=== PATIENT | female | born 1985 | race Caucasian/White ===

== ENCOUNTER 2016-03-25 12:37 | Outpatient (CLI) | payer MEDICAID ==
--- NOTE | 2016-03-25 14:00 | L&D Flow Sheet ---
LD Flowsheet Datetime Report Generated by CPN: 03/25/2016 14:00 Datetime: 03/25/2016 13:50 Uterine Activity Monitor Mode: External; Palpation (Chely Carmen RN) Frequency (min): none (Chely Carmen RN) Resting Tone (Palpate): Relaxed (Chely Carmen RN) Contraction Comments: patient denies feeling contractions. no contractions noted on monitor (Chely Carmen RN) Assessment A Monitor Mode: External US (Chely [place], RN) FHR Baseline Rate : 150 (Chely [place], RN) FHR Baseline Changes: No Baseline Change (Chely [place], RN) Variability: Moderate 6-25 bpm (Chely [place], RN) Accelerations: 15X15 (Chely Kermit, RN) Decelerations: None (Chely [place], RN) Comments: reports positive movement; audible movement noted (Chely [place], RN) Datetime: 03/25/2016 13:49 Vital Signs Stage of : Labor (Chely Kermit, RN) Datetime: 03/25/2016 13:46 Medications Medication Comments: Patient self administered Humalog 5 units sub Q per provider order (Chely Carmen, RN) Datetime: 03/25/2016 13:42 Provider Notified (Name): Jane Horne CNM stated, Hgb A1C is not needed at this time (Chely Luzard, RN) Datetime: 03/25/2016 13:40 Vital Signs Stage of : Labor (Chely Carmen RN) NBP Sys/Maylin/Mean (mmHg): 119 (QS system process) : 74 (QS system process) : 91 (QS system process) Pulse: 79 (QS system process) Respirations: 14 (Chely Carmen RN) Temperature (F): 98.5 (Chely Carmen RN) Temperature (C): 36.9 (QS system process) Temperature Route: Oral (Chely Carmen RN) Pain Pain Scale: 0 (Chely Carmen RN) Pain Presence: None/Denies (Chely Carmen RN) Pain Type: N/A (Chely Carmen RN) Pain Goal: 1 (Chely Carmen RN) Pain Relief Measures: Comfort Measures (Chely Carmen RN) LaborFlag: Labor (QS system process) Datetime: 03/25/2016 13:36 Communication Communication: Call/Page Placed to Provider (Chely Carmen RN) Provider Notified (Name): Dr. Bacon (Chely Carmen RN) Communication Comments: Notified of patient OB history and history of poorly controlled Type 2 DM. Notified of insulin dose history, BS 306 at 1130 in provider's office and repeat BS 191 in L_D. Orders received to have patioent take Humalog 5 units subq (patient may take home medication) and call MFM if blood sugar remains > or equal to 200. Patient verbalized understanding and all questions answered. Agrees to plan of care. Patient has been previously scheduled for induction on Mar 29. Orders to discharge patient home following recative NST. (Chely Carmen RN) Datetime: 03/25/2016 13:29 Bedside Blood Glucose: 191 H (Annotations: MD Notified) (QS system process) Bedside Blood Glucose: 191 (Annotations: Dr. Bacon notified) (Chely Luzard, RN) LaborFlag: Labor (QS system process) Datetime: 03/25/2016 13:20 Monitor Interventions for FHR: Ultrasound Adjusted (Chely [place], RN) Patient Care Provider Reviewed Strip: Yes (Chely [place], RN) Communication Communication: RN at Bedside; RN Reviewed Strip; Provider at Bedside (Chely Carmen, RN) Provider Notified (Name): Jane Horne CNBen at bedside discussing plan of care (Chely Luzard, RN) Datetime: 03/25/2016 13:10 NBP Sys/Maylin/Mean (mmHg): 118 (QS system process) : 60 (QS system process) : 80 (QS system process) Pulse: 81 (QS system process) LaborFlag: Labor (QS system process) Datetime: 03/25/2016 13:08 Vital Signs Stage of : Labor (Chely [place], RN) Datetime: 03/25/2016 12:58 Vital Signs Stage of : Labor (Chely [place], RN)
--- NOTE | 2016-03-25 14:01 | Non Stress Test Report ---
Non Stress Test Datetime Report Generated by CPN: 03/25/2016 14:01 DEMOGRAPHIC EGA NST: 38.0 INDICATION Indication for Study: Diabetes Mellitus MONITORING Monitor Explained: Monitor Explained; Test Explained; Patient Verbalized Understanding Time on Monitor: 03/25/2016 13:08 Time off Monitor: 03/25/2016 13:50 NST Duration: 42 NST INTERVENTIONS NST Interventions: PO Hydration Physician Notified NST: Jane Horne CNM/Dr. Bacon BABY A: [id number] BABY A Movement : Present Contraction Frequency : none FHR Baseline : 150 Accelerations : 15X15 Decelerations : None Variability : Moderate 6-25bpm NST Review: Meets Criteria for Reactive NST NST Review and Verified By : Angely Carmen RN NST REPORT Report Trigger: Send Report
== END 2016-03-25 13:57 | disposition home or self-care (01) ==
LOC: LC 12:37
PROVIDERS: ATTEND Obstetrics & Gynecology
PROC: 4A1HXCZ Monitoring of Products of Conception, Cardiac Rate, External Approach (ICD-10-PCS; principal; 2016-03-25)
DX: O24.913 Unspecified diabetes mellitus in pregnancy, third trimester (principal); Z3A.38 38 weeks gestation of pregnancy; Z79.4 Long term (current) use of insulin
CPT/HCPCS: 59025; 82962

== ENCOUNTER 2016-03-29 05:58 | Inpatient (IN) | payer MEDICAID ==
[2016-03-29] MEDS ORDERED: PENICILLIN G POTASSIUM 5,000,000 UNIT in DEXTROSE 5%-WATER 100 ML IV ONE (06:22)
[2016-03-29] MEDS ORDERED: OXYTOCIN/NORMAL SALINE 20 UNIT/1,000 ML RTUINJ IV PRN ×2 (06:22→19:42)
[2016-03-29] MEDS ORDERED: RINGERS SOLUTION,LACTATED 300 ML IV ONE (06:22)
[2016-03-29] MEDS ORDERED: RINGERS SOLUTION,LACTATED 1,000 ML IV PRN (06:22)
[2016-03-29 07:04] LABS: ABSOLUTE BASOPHILS # (AUTO) 0.1 10^3/uL (0.0-0.2); ABSOLUTE EOSINOPHILS # (AUTO) 0.1 10^3/uL (0.0-0.6); ABSOLUTE LYMPHOCYTES (AUTO) 3.2 10^3/uL (0.5-4.7); ABSOLUTE NEUT (AUTO) 12.6 10^3/uL (1.7-8.2); BASOPHILS % (AUTO) 0.5 % (0-2); EOSINOPHILS % (AUTO) 0.8 % (0-6); HEMATOCRIT 39.6 % (36.0-47.0); HEMOGLOBIN 13.2 g/dL (12.0-15.5); LYMPHOCYTES % (AUTO) 18.9 % (13-45); MEAN CORPUSCULAR HGB CONC 33.4 g/dL (32.0-36.0); MEAN CORPUSCULAR VOLUME 93 fl (80-97); MONOCYTES % (AUTO) 5.8 % (3-13); RED BLOOD COUNT 4.27 10^6/uL (3.72-5.28); RED CELL DISTRIBUTION WIDTH 13.2 % (11.5-14.0)
[2016-03-29] MEDS ORDERED: OXYTOCIN/NORMAL SALINE 20 UNIT/1,000 ML RTUINJ ONE (07:23)
[2016-03-29] MEDS ORDERED: PENICILLIN G-K 5 MILLION UNIT VIAL ONE ×4 (07:23→19:34)
[2016-03-29 07:51] LABS: APPEARANCE,URINE CLOUDY; BILIRUBIN,URINE NEGATIVE (NEGATIVE); GLUCOSE, URINE NEGATIVE (NEGATIVE); KETONES,URINE 20 mg/dL (NEGATIVE); LEUKOCYTE ESTERASE,URINE LARGE (NEGATIVE); NITRITE,URINE NEGATIVE (NEGATIVE); PROTEIN,URINE NEGATIVE (NEGATIVE); URINE SPECIFIC GRAVITY 1.025; UROBILINOGEN,URINE NEGATIVE mg/dL (<2.0)
--- NOTE | 2016-03-29 08:00 | L&D Flow Sheet ---
LD Flowsheet Datetime Report Generated by CPN: 03/29/2016 08:00 Datetime: 03/29/2016 07:45 Antibiotics: Penicillin IV (Units) @ 5 million units (Hansa Halsmer, RN) Datetime: 03/29/2016 07:44 NBP Sys/Maylin/Mean (mmHg): 121 (QS system process) : 68 (QS system process) : 88 (QS system process) Pulse: 68 (QS system process) LaborFlag: Labor (QS system process) Datetime: 03/29/2016 07:13 NBP Sys/Maylin/Mean (mmHg): 130 (QS system process) : 73 (QS system process) : 95 (QS system process) Pulse: 100 (QS system process) LaborFlag: Labor (QS system process) Datetime: 03/29/2016 07:10 Additional Nursing Comments: report to rn halsmer. care relinquished. (Valencia Navikim, RN) Datetime: 03/29/2016 07:01 Monitor Mode: External; Palpation (Valencia Kossmann, RN) Frequency (min): none (Valencia Guthrie, RN) Resting Tone (Palpate): Relaxed (Valencia Guthrie RN) Monitor Mode: External US (Valencia Guthrie RN) FHR Baseline Rate : 155 (Valencia Guthrie RN) Variability: Minimal - Undetectable to <=5 bpm (Valencia Guthrie RN) Decelerations: None (Valencia Guthrie RN) Datetime: 03/29/2016 06:40 NBP Sys/Maylin/Mean (mmHg): 134 (QS system process) : 82 (QS system process) : 100 (QS system process) Pulse: 94 (QS system process) LaborFlag: Labor (QS system process) Datetime: 03/29/2016 06:38 Level of Consciousness: Fully Conscious (Valencia Guthrie RN) DTR's/Clonus: DTRs 2+; No Clonus (Valencia Guthrie RN) Headache: Denies (Valencia Guthrie RN) Breath Sounds, Left: Clear and Equal (Valencia Guthrie RN) Breath Sounds, Right: Clear and Equal (Valencia Guthrie RN) Nausea/Vomiting: Denies (Valencia Guthrie RN) RUQ Epigastric Pain: Denies (Valencia Guthrie RN) Datetime: 03/29/2016 06:24 Communication Comments: Consents signed (Radha Gordillo RN)
[2016-03-29 08:15] LABS: URINE BARBITURATES SCREEN NEGATIVE; URINE METHADONE SCREEN NEGATIVE; URINE OPIATES LOW NEGATIVE; URINE PHENCYCLIDINE SCREEN NEGATIVE
--- NOTE | 2016-03-29 10:01 | L&D Flow Sheet ---
LD Flowsheet Datetime Report Generated by CPN: 03/29/2016 10:00 Datetime: 03/29/2016 09:36 Bedside Blood Glucose: 135 H (Annotations: MD Notified) (QS system process) LaborFlag: Labor (QS system process) Datetime: 03/29/2016 09:14 NBP Sys/Maylin/Mean (mmHg): 120 (QS system process) : 68 (QS system process) : 84 (QS system process) Pulse: 75 (QS system process) LaborFlag: Labor (QS system process) Datetime: 03/29/2016 08:47 Actions for Decelerations: Provider Reviewed Strip (Hansa Hou RN) Communication: Provider at Bedside (Hansa Hou RN) Datetime: 03/29/2016 08:45 Monitor Mode: External (Hansa Hou RN) Frequency (min): none per toco (Hansa Hou RN) Quality: Mild (Hansa Hou RN) Resting Tone (Palpate): Relaxed (Hansa Hou RN) Contraction Comments: pt states feeling cramping. toco adjusted. (Hansa Hou RN) Monitor Mode: External US (Hansa Hou RN) FHR Baseline Rate : 160 (Hansa Hou RN) Variability: Moderate 6-25 bpm (Hansa Hou RN) Decelerations: None (Hansa Hou RN) Pitocin (milliunit): Pitocin Increased to (milliunits) @ (Annotations: 6) (Hansa Hou RN) Datetime: 03/29/2016 08:43 NBP Sys/Maylin/Mean (mmHg): 115 (QS system process) : 63 (QS system process) : 82 (QS system process) Pulse: 67 (QS system process) Respirations: 16 (Hansa Halsmer, RN) LaborFlag: Labor (QS system process) Datetime: 03/29/2016 08:40 Monitor Interventions for UA: [place] Adjusted (Hansa Halsmer, RN) Datetime: 03/29/2016 08:30 Monitor Mode: External (Hansa Halsmer, RN) Frequency (min): none per toco (Hansa Halsmer, RN) Resting Tone (Palpate): Relaxed (Hansa Halsmer, RN) Monitor Mode: External US (Hansa Halsmer, RN) FHR Baseline Rate : 150 (Hansa Halsmer, RN) Variability: Moderate 6-25 bpm (Hansa Halsmer, RN) Accelerations: 15X15 (Hansa Halsmer, RN) Decelerations: None (Hansa Halsmer, RN) Pitocin (milliunit): Pitocin Increased to (milliunits) @ (Annotations: 4) (Hansa Halsmer, RN) Datetime: 03/29/2016 08:15 Monitor Mode: External (Hansa Halsmer, RN) Frequency (min): none per toco (Hansa Halsmer, RN) Resting Tone (Palpate): Relaxed (Hansa Halsmer, RN) Monitor Mode: External US (Hansa Halsmer, RN) FHR Baseline Rate : 155 (Hansa Halsmer, RN) Variability: Minimal - Undetectable to <=5 bpm (Hansa Halsmer, RN) Decelerations: None (Hansa Halsmer, RN) Pitocin (milliunit): Pitocin Remains (milliunits) @ (Annotations: 2) (Hansa Halsmer, RN) Datetime: 03/29/2016 08:13 NBP Sys/Maylin/Mean (mmHg): 118 (QS system process) : 59 (QS system process) : 82 (QS system process) Pulse: 72 (QS system process) Temperature (F): 98.2 (Hansa Hou RN) Temperature (C): 36.8 (QS system process) Temperature Route: Oral (Hansa Hou RN) Pain Scale: 0 (Hansa Hou RN) Pain Presence: None/Denies (Hansa Hou RN) Pain Type: N/A (Hansa Hou RN) LaborFlag: Labor (QS system process) Datetime: 03/29/2016 08:08 I/O Interventions: Up to BR (Hansa Fairbankser, RN) Datetime: 03/29/2016 08:00 Monitor Mode: External (Hansa Hou RN) Frequency (min): none per toco (Hansa Hou RN) Resting Tone (Palpate): Relaxed (Hansa Hou RN) Monitor Mode: External US (Hansa Hou RN) FHR Baseline Rate : 150 (Hansa Hou RN) FHR Baseline Changes: No Baseline Change (Hansa Hou RN) Variability: Moderate 6-25 bpm (Hansa Hou RN) Decelerations: None (Hansa Hou RN) Pitocin (milliunit): Pitocin Started (milliunits) @ 2; Pitocin 20 Units in 1000ml NS (Hansa Hou RN)
[2016-03-29] MEDS ORDERED: PENICILLIN G POTASSIUM 2,500,000 UNIT in DEXTROSE 5%-WATER 50 ML IV SCH (10:23)
[2016-03-29] MEDS ORDERED: EPHEDRINE SULFATE INJ 50 MG/1 ML AMPULE ONE (11:32)
[2016-03-29] MEDS ORDERED: BUPIVACAINE HCL 0.25 % INJ/PF (2.5 MG/1 ML) 30 ML VIAL ONE (11:33)
[2016-03-29] MEDS ORDERED: FENTANYL/BUPIVACAINE/NS/PF 200 MCG/100 ML RTUINJ EPI ONE ×2 (11:33→20:29)
--- NOTE | 2016-03-29 11:37 | L&D Progress Notes ---
PROGRESS NOTES Datetime Report Generated by CPN: 03/29/2016 11:37 PROGRESS NOTE Impression: Normal Progression of Labor Procedures: Artificial ROM Plan: Induction Informed Consent Obtained: Vaginal Delivery Vital Signs : Reviewed; Within Normal Limits Comment: at 38+4ega presented for IOL due to very poorly controlled Accuchecks with Type II DM on insulin. Cvx 2cm on admission. Cat II FHR tracing with difficult to trace baby due to habitus. May need FSE/IUPC. will continue to monitor. AROM with clear fluid noted. Pitocin IOL to continue as per protocol. Anticpate . Cvx now 4/50/-2. COntinue with IOL. VAGINAL EXAM Dilatation: 4 Effacement: 50 Station: -2 Contractions: irregular MEMBRANES Pooling: Positive Membranes: Ruptured Amniotic Fluid Color: Clear FETUS A FHR - Baseline: 150 Monitoring: External US Variability: Moderate 6-25bpm Accelerations: 10X10 Decelerations: None SIGNATURE SIGNATURE: [id number] SIGNATURE: [id number] SIGNATURE: [id number] Signature: with User ID: [email or web address]
--- NOTE | 2016-03-29 12:00 | L&D Flow Sheet ---
LD Flowsheet Datetime Report Generated by CPN: 03/29/2016 12:00 Datetime: 03/29/2016 11:49 IV/Blood Work: IV Bolus Started (Hansa Halsmer, RN) Datetime: 03/29/2016 11:46 Pain Presence: Intermittent (Hansa Fairbankser, RN) Pain Type: Contraction (Hansa Fairbankser, RN) Pain Location: Back (Hansa Fairbankser, RN) Pain Relief Measures: Comfort Measures (Hansa Fairbankser, RN) Pain Coping: Requesting Pain Medication or Epidural (Hansa Hou, RN) Comfort Measures: Breathing/Relaxation; Coaching; Family Support (Hansa Hou, RN) LaborFlag: Labor (QS system process) Datetime: 03/29/2016 11:45 Pitocin (milliunit): Pitocin Remains (milliunits) @ (Annotations: 16) (Hansa Fairbankser, RN) Datetime: 03/29/2016 11:44 Antibiotics: Penicillin IV (Units) @ 2.5 million units (Hansa Fairbankser, RN) Datetime: 03/29/2016 11:30 Pitocin (milliunit): Pitocin Remains (milliunits) @ (Annotations: 16) (Hansa Hou RN) Datetime: 03/29/2016 11:28 Patient Position/Activity: Right Lateral; Semi-Fowlers (Hansa Hou RN) Datetime: 03/29/2016 11:24 Dilatation (cm): 4.0 (Hansa Hou RN) Effacement (%): 50 (Hansa Hou RN) Station: -3 (Hansa Hou RN) Exam by: DR FRANK (Hansa Hou RN) Membrane Status: Ruptured (Hansa Hou RN) Membranes Rupture Method: Artificial (Hansa Hou RN) Amniotic Fluid Color: Clear (Hansa Huo RN) Amniotic Fluid Amount: Moderate (Hansa Hou RN) Datetime: 03/29/2016 11:20 I/O Interventions: Up to BR (Hansa Hou, RN) Datetime: 03/29/2016 11:15 Pitocin (milliunit): Pitocin Remains (milliunits) @ (Annotations: 16) (Hansa Hou, RN) Datetime: 03/29/2016 11:14 NBP Sys/Maylin/Mean (mmHg): 125 (QS system process) : 80 (QS system process) : 97 (QS system process) Pulse: 85 (QS system process) Temperature (F): 97.9 (Hansa Halsmer, RN) Temperature (C): 36.6 (QS system process) Temperature Route: Oral (Hansa Hou, RN) LaborFlag: Labor (QS system process) Datetime: 03/29/2016 11:00 Pitocin (milliunit): Pitocin Increased to (milliunits) @ (Annotations: 16) (Hansa Hou, RN) Datetime: 03/29/2016 10:45 Pitocin (milliunit): Pitocin Remains (milliunits) @ (Annotations: 14) (Hansa Hou, RN) Datetime: 03/29/2016 10:30 Monitor Mode: External; Palpation (Hansa Halsmer, RN) Frequency (min): 2-3 (Hansa Halsmer, RN) Quality: Mild (Hansa Halsmer, RN) Duration (sec): 50-70 (Hansa Halsmer, RN) Resting Tone (Palpate): Relaxed (Hansa Halsmer, RN) Monitor Mode: External US (Hansa Halsmer, RN) FHR Baseline Rate : 155 (Hansa Halsmer, RN) FHR Baseline Changes: No Baseline Change (Hansa Halsmer, RN) Variability: Moderate 6-25 bpm (Hansa Halsmer, RN) Accelerations: 15X15 (Hansa Halsmer, RN) Decelerations: None (Hansa Halsmer, RN) Pitocin (milliunit): Pitocin Increased to (milliunits) @ (Annotations: 14) (Hansa Halsmer, RN) Datetime: 03/29/2016 10:16 Patient Position/Activity: Tailors (Hansa Halsmer, RN) Datetime: 03/29/2016 10:15 Monitor Mode: External; Palpation (Hansa Halsmer, RN) Frequency (min): OOC (Hansa Halsmer, RN) Quality: Mild (Hansa Halsmer, RN) Resting Tone (Palpate): Relaxed (Hansa Halsmer, RN) Monitor Mode: External US (Hansa Halsmer, RN) FHR Baseline Rate : 155 (Hansa Halsmer, RN) FHR Baseline Changes: No Baseline Change (Hansa Halsmer, RN) Variability: Minimal - Undetectable to <=5 bpm (Hansa Halsmer, RN) Decelerations: None (Hansa Halsmer, RN) Pitocin (milliunit): Pitocin Remains (milliunits) @ (Annotations: 12) (Hansa Halsmer, RN) Datetime: 03/29/2016 10:13 I/O Interventions: Up to BR (Hansa Halsmer, RN) Datetime: 03/29/2016 10:11 Monitor Mode: External; Palpation (Hansa Hou RN) Monitor Interventions for UA: [place] Adjusted (Hansa Haldinoraher, RN) Datetime: 03/29/2016 10:08 Monitor Interventions for UA: [place] Adjusted (Hansa Fairbankser, RN) Datetime: 03/29/2016 10:00 Monitor Mode: External (Hansa Hou RN) Frequency (min): NONE PER TOCO (Hansa Hou RN) Quality: Mild (Hansa Hou RN) Resting Tone (Palpate): Relaxed (Hansa Hou RN) Contraction Comments: RN AT BEDSIDE ADJUSTING TOCO (Hansa Hou RN) Monitor Mode: External US (Hansa Hou RN) FHR Baseline Rate : 160 (Hansa Hou RN) Variability: Moderate 6-25 bpm (Hansa Hou RN) Pitocin (milliunit): Pitocin Increased to (milliunits) @ (Annotations: 12) (Hansa Hou RN)
--- NOTE | 2016-03-29 14:00 | L&D Flow Sheet ---
LD Flowsheet Datetime Report Generated by CPN: 03/29/2016 14:00 Datetime: 03/29/2016 13:54 NBP Sys/Maylin/Mean (mmHg): 126 (QS system process) : 66 (QS system process) : 86 (QS system process) Pulse: 74 (QS system process) LaborFlag: Labor (QS system process) Datetime: 03/29/2016 13:51 NBP Sys/Maylin/Mean (mmHg): 122 (QS system process) : 58 (QS system process) : 82 (QS system process) Pulse: 67 (QS system process) LaborFlag: Labor (QS system process) Datetime: 03/29/2016 13:49 NBP Sys/Maylin/Mean (mmHg): 117 (QS system process) : 58 (QS system process) : 81 (QS system process) Pulse: 78 (QS system process) Anesthesia Interventions Other: Ephedrine (Hansa Neri RN) Anesthesia Comments: 10MG IV PUSH (Hansa Neri RN) LaborFlag: Labor (QS system process) Datetime: 03/29/2016 13:47 IV/Blood Work: New IV Bag Hung (Hansa Neri, GRISEL) Datetime: 03/29/2016 13:46 NBP Sys/Maylin/Mean (mmHg): 115 (QS system process) : 60 (QS system process) : 80 (QS system process) Pulse: 72 (QS system process) Oxygen Method: Non-Rebreather (Hansa Neri, RN) LaborFlag: Labor (QS system process) Datetime: 03/29/2016 13:45 Pitocin (milliunit): Pitocin Remains (milliunits) @ (Annotations: 16) (Hansa Neri, RN) Datetime: 03/29/2016 13:44 NBP Sys/Maylin/Mean (mmHg): 103 (QS system process) : 55 (QS system process) : 74 (QS system process) Pulse: 75 (QS system process) LaborFlag: Labor (QS system process) Datetime: 03/29/2016 13:40 NBP Sys/Maylin/Mean (mmHg): 109 (QS system process) : 57 (QS system process) : 76 (QS system process) Pulse: 72 (QS system process) LaborFlag: Labor (QS system process) Datetime: 03/29/2016 13:39 NBP Sys/Maylin/Mean (mmHg): 97 (QS system process) : 56 (QS system process) : 72 (QS system process) Pulse: 69 (QS system process) Anesthesia Interventions Other: Ephedrine (Hansa Neri RN) Anesthesia Comments: 10 MG IV PUSH (Hansa Neri RN) LaborFlag: Labor (QS system process) Datetime: 03/29/2016 13:33 NBP Sys/Maylin/Mean (mmHg): 93 (QS system process) : 51 (QS system process) : 65 (QS system process) Pulse: 76 (QS system process) LaborFlag: Labor (QS system process) Datetime: 03/29/2016 13:30 NBP Sys/Maylin/Mean (mmHg): 104 (QS system process) : 59 (QS system process) : 76 (QS system process) Pulse: 72 (QS system process) Pitocin (milliunit): Pitocin Remains (milliunits) @ (Annotations: 16) (Hansa Neri RN) LaborFlag: Labor (QS system process) Datetime: 03/29/2016 13:29 Monitor Interventions for UA: IUPC Inserted (Swati Bellavance, RNC) Datetime: 03/29/2016 13:28 Monitor Interventions for FHR: FSE Applied (Swati Bellavance, RNC) Dilatation (cm): 5.0 (Swati Bellavance, RNC) Effacement (%): 60 (Swati Bellavance, RNC) Station: -3 (Swati Bellavance, RNC) Exam by: Yeni Rasheed CNM (Swtai Bellavance, RNC) Vaginal Bleeding: None (Swati Bellavance, RNC) Datetime: 03/29/2016 13:27 Oxygen Method: Face Mask (Swati Bellavance, RNC) Communication: Provider at Bedside (Hansa Neri, GRISEL) Communication Comments: Pedro RASHEED CNM (Hansa [facility], ) Datetime: 03/29/2016 13:22 IV/Blood Work: IV Bolus Started (Hansa Neri, RN) Datetime: 03/29/2016 13:21 Monitor Interventions for FHR: Ultrasound Adjusted (Hansa Neri, RN) Datetime: 03/29/2016 13:15 NBP Sys/Maylin/Mean (mmHg): 112 (QS system process) : 68 (QS system process) : 85 (QS system process) Pulse: 73 (QS system process) Pitocin (milliunit): Pitocin Remains (milliunits) @ (Annotations: 16) (Hansa Neri, GRISEL) LaborFlag: Labor (QS system process) Datetime: 03/29/2016 13:14 NBP Sys/Maylin/Mean (mmHg): 118 (QS system process) : 71 (QS system process) : 88 (QS system process) Pulse: 81 (QS system process) LaborFlag: Labor (QS system process) Datetime: 03/29/2016 13:11 NBP Sys/Maylin/Mean (mmHg): 116 (QS system process) : 70 (QS system process) : 88 (QS system process) Pulse: 74 (QS system process) LaborFlag: Labor (QS system process) Datetime: 03/29/2016 13:10 NBP Sys/Maylin/Mean (mmHg): 117 (QS system process) : 63 (QS system process) : 79 (QS system process) Pulse: 83 (QS system process) LaborFlag: Labor (QS system process) Datetime: 03/29/2016 13:09 Anesthesia Interventions Other: Ephedrine (Hansa Halsmer, RN) Anesthesia Comments: 5 mg iv push (Hansa Halsmer, RN) Datetime: 03/29/2016 13:08 NBP Sys/Maylin/Mean (mmHg): 112 (QS system process) : 65 (QS system process) : 83 (QS system process) Pulse: 74 (QS system process) LaborFlag: Labor (QS system process) Datetime: 03/29/2016 13:07 NBP Sys/Maylin/Mean (mmHg): 120 (QS system process) : 67 (QS system process) : 87 (QS system process) Pulse: 83 (QS system process) LaborFlag: Labor (QS system process) Datetime: 03/29/2016 13:03 NBP Sys/Maylin/Mean (mmHg): 115 (QS system process) : 64 (QS system process) : 82 (QS system process) Pulse: 75 (QS system process) LaborFlag: Labor (QS system process) Datetime: 03/29/2016 13:02 Dilatation (cm): 5.0 (Hansa Neri RN) Effacement (%): 90 (Hansa Neri RN) Station: -1 (Hansa Neri RN) Exam by: Adelaida NERI RN (Hansa Neri RN) Datetime: 03/29/2016 13:00 Pitocin (milliunit): Pitocin Remains (milliunits) @ (Annotations: 16) (Hansa Chaneysmer, RN) I/O Interventions: George Cath Inserted (Hansa Halsmer, RN) Datetime: 03/29/2016 12:57 NBP Sys/Maylin/Mean (mmHg): 119 (QS system process) : 69 (QS system process) : 88 (QS system process) Pulse: 82 (QS system process) LaborFlag: Labor (QS system process) Datetime: 03/29/2016 12:56 NBP Sys/Maylin/Mean (mmHg): 123 (QS system process) : 68 (QS system process) : 89 (QS system process) Pulse: 77 (QS system process) LaborFlag: Labor (QS system process) Datetime: 03/29/2016 12:55 NBP Sys/Maylin/Mean (mmHg): 120 (QS system process) : 71 (QS system process) : 90 (QS system process) Pulse: 77 (QS system process) Epidural Procedure Other: Pump Started (Maryuri Joyec RN) LaborFlag: Labor (QS system process) Datetime: 03/29/2016 12:54 NBP Sys/Maylin/Mean (mmHg): 127 (QS system process) : 71 (QS system process) : 93 (QS system process) Pulse: 80 (QS system process) Patient Position/Activity: Right Tilt (Maryuri Joyce RN) LaborFlag: Labor (QS system process) Datetime: 03/29/2016 12:53 NBP Sys/Maylin/Mean (mmHg): 133 (QS system process) : 89 (QS system process) : 106 (QS system process) Pulse: 80 (QS system process) LaborFlag: Labor (QS system process) Datetime: 03/29/2016 12:52 NBP Sys/Maylin/Mean (mmHg): 129 (QS system process) : 78 (QS system process) : 98 (QS system process) Pulse: 71 (QS system process) LaborFlag: Labor (QS system process) Datetime: 03/29/2016 12:51 NBP Sys/Maylin/Mean (mmHg): 132 (QS system process) : 86 (QS system process) : 105 (QS system process) Pulse: 77 (QS system process) LaborFlag: Labor (QS system process) Datetime: 03/29/2016 12:50 NBP Sys/Maylin/Mean (mmHg): 127 (QS system process) : 79 (QS system process) : 99 (QS system process) Pulse: 69 (QS system process) LaborFlag: Labor (QS system process) Datetime: 03/29/2016 12:49 NBP Sys/Maylin/Mean (mmHg): 142 (QS system process) : 89 (QS system process) : 109 (QS system process) Pulse: 76 (QS system process) Epidural Procedure: Cath Placed (Maryuri Joyce RN) LaborFlag: Labor (QS system process) Datetime: 03/29/2016 12:48 Pulse: 71 (QS system process) SpO2 (%): 100 (QS system process) Epidural Procedure: Test Dose (Maryuri Joyce RN) LaborFlag: Labor (QS system process) Datetime: 03/29/2016 12:45 Pitocin (milliunit): Pitocin Remains (milliunits) @ (Annotations: 16) (Hansa [facility], RN) Datetime: 03/29/2016 12:44 NBP Sys/Maylin/Mean (mmHg): 140 (QS system process) : 87 (QS system process) : 107 (QS system process) Pulse: 76 (QS system process) IV/Blood Work: New IV Bag Hung (Maryuri Joyce RN) LaborFlag: Labor (QS system process) Datetime: 03/29/2016 12:43 Pulse: 79 (QS system process) SpO2 (%): 100 (QS system process) LaborFlag: Labor (QS system process) Datetime: 03/29/2016 12:40 Procedure Verify: Correct Patient Identity; Correct Side and Site are Marked; Accurate Procedure Consent Form; Agreement on Procedure to be Done; Correct Patient Position (Maryuri Joyce RN) Anesthesia Plans: Epidural (Maryuri Joyce RN) Epidural Positioning: Sitting (Maryuri Joyce RN) Datetime: 03/29/2016 12:38 Pulse: 80 (QS system process) SpO2 (%): 100 (QS system process) Procedure Verify: Correct Patient Identity; Correct Side and Site are Marked; Accurate Procedure Consent Form; Agreement on Procedure to be Done; Correct Patient Position (Maryuri Joyce RN) Epidural Positioning: Sitting (Maryuri Joyce RN) Anesthesia Comments: Dr. Seaman at bedside (Maryuri Joyce RN) LaborFlag: Labor (QS system process) Datetime: 03/29/2016 12:30 Pitocin (milliunit): Pitocin Remains (milliunits) @ (Annotations: 16) (Hansa Fairbankser, RN) Datetime: 03/29/2016 12:15 Pitocin (milliunit): Pitocin Remains (milliunits) @ (Annotations: 16) (Hansa Fairbankser, RN) Datetime: 03/29/2016 12:09 Patient Position/Activity: Tailors (Hansa Neri, RN) Datetime: 03/29/2016 12:00 Pitocin (milliunit): Pitocin Remains (milliunits) @ (Annotations: 16) (Hansa Neri RN) I/O Interventions: Up to BR (Hansa Neri RN) Patient Care Comments: pt having bm (Hansa Neri RN)
--- NOTE | 2016-03-29 16:00 | L&D Flow Sheet ---
LD Flowsheet Datetime Report Generated by CPN: 03/29/2016 16:00 Datetime: 03/29/2016 15:46 NBP Sys/Maylin/Mean (mmHg): 117 (QS system process) : 72 (QS system process) : 88 (QS system process) Pulse: 86 (QS system process) LaborFlag: Labor (QS system process) Datetime: 03/29/2016 15:30 NBP Sys/Maylin/Mean (mmHg): 103 (QS system process) : 66 (QS system process) : 79 (QS system process) Pulse: 107 (QS system process) Monitor Mode: Internal (Hansa Halsmer, RN) Frequency (min): 4-5 (Hansa Halsmer, RN) Quality: Moderate (Hansa Halsmer, RN) Duration (sec): 50-70 (Hansa Halsmer, RN) Duration Criteria: Less than Two 120 Second Contractions (Hansa Halsmer, RN) Resting Tone (Palpate): Relaxed (Hansa Halsmer, RN) Monitor Mode: Internal Scalp Electrode (Hansa Halsmer, RN) FHR Baseline Rate : 165 (Hansa Halsmer, RN) FHR Baseline Changes: No Baseline Change (Hansa Halsmer, RN) Variability: Moderate 6-25 bpm (Hansa Halsmer, RN) Decelerations: None (Hansa Halsmer, RN) LaborFlag: Labor (QS system process) Datetime: 03/29/2016 15:15 NBP Sys/Maylin/Mean (mmHg): 125 (QS system process) : 78 (QS system process) : 93 (QS system process) Pulse: 94 (QS system process) Respirations: 16 (Hansa Halsmer, RN) Monitor Mode: Internal (Hansa Halsmer, RN) Frequency (min): 4-5 (Hansa Halsmer, RN) Quality: Moderate (Hansa Halsmer, RN) Duration (sec): 50-70 (Hansa Halsmer, RN) Duration Criteria: Less than Two 120 Second Contractions (Hansa Halsmer, RN) Resting Tone (Palpate): Relaxed (Hansa Halsmer, RN) Monitor Mode: Internal Scalp Electrode (Hnasa Halsmer, RN) FHR Baseline Rate : 160 (Hansa Halsmer, RN) FHR Baseline Changes: No Baseline Change (Hansa Halsmer, RN) Variability: Moderate 6-25 bpm (Hansa Halsmer, RN) Decelerations: None (Hansa Halsmer, RN) LaborFlag: Labor (QS system process) Datetime: 03/29/2016 15:12 Resting Tone IUP (mmHg): 15 (Hansa Halsmer, RN) Contraction Comments: TOTAL MVU'S 160 (Hansa Halsmer, RN) Datetime: 03/29/2016 15:04 Patient Position/Activity: Tailors (Hansa Halsmer, RN) Hygiene: Underpad Changed (Hansa Halsmer, RN) Datetime: 03/29/2016 15:00 NBP Sys/Maylin/Mean (mmHg): 114 (QS system process) : 63 (QS system process) : 81 (QS system process) Pulse: 90 (QS system process) Respirations: 16 (Hansa Halsmer, RN) Monitor Mode: Internal Scalp Electrode (Hansa Halsmer, RN) FHR Baseline Rate : 160 (Hansa Halsmer, RN) FHR Baseline Changes: No Baseline Change (Hansa Halsmer, RN) Variability: Moderate 6-25 bpm (Hansa Halsmer, RN) Accelerations: 15X15 (Hansa Halsmer, RN) Decelerations: None (Hansa Halsmer, RN) LaborFlag: Labor (QS system process) Datetime: 03/29/2016 14:46 NBP Sys/Maylin/Mean (mmHg): 122 (QS system process) : 65 (QS system process) : 85 (QS system process) Pulse: 81 (QS system process) Respirations: 16 (Hansa Halsmer, RN) LaborFlag: Labor (QS system process) Datetime: 03/29/2016 14:45 Monitor Mode: Internal (Hansa Halsmer, RN) Frequency (min): 3-4 (Hansa Halsmer, RN) Quality: Moderate (Hansa Halsmer, RN) Duration (sec): 50-80 (Hansa Halsmer, RN) Resting Tone (Palpate): Relaxed (Hansa Halsmer, RN) Monitor Mode: Internal Scalp Electrode (Hansa Halsmer, RN) FHR Baseline Rate : 160 (Hansa Halsmer, RN) Variability: Moderate 6-25 bpm (Hansa Halsmer, RN) Decelerations: None (Hansa Halsmer, RN) Datetime: 03/29/2016 14:30 NBP Sys/Maylin/Mean (mmHg): 117 (QS system process) : 66 (QS system process) : 83 (QS system process) Pulse: 69 (QS system process) Respirations: 16 (Hansa Halsmer, RN) Monitor Mode: Internal (Hansa Halsmer, RN) Frequency (min): 2-3 (Hansa Halsmer, RN) Quality: Moderate (Hansa Halsmer, RN) Duration (sec): 40-60 (Hansa Halsmer, RN) Resting Tone (Palpate): Relaxed (Hansa Halsmer, RN) Monitor Mode: Internal Scalp Electrode (Hansa Halsmer, RN) FHR Baseline Rate : 150 (Hansa Halsmer, RN) FHR Baseline Changes: No Baseline Change (Hansa Halsmer, RN) Variability: Moderate 6-25 bpm (Hansa Halsmer, RN) Decelerations: Late; Variable (Hansa Halsmer, RN) LaborFlag: Labor (QS system process) Datetime: 03/29/2016 14:27 Patient Position/Activity: Hands-Knees (Hansa Halsmer, RN) Datetime: 03/29/2016 14:25 Pitocin (milliunit): Pitocin Discontinued (Hansa Halsmer, RN) Datetime: 03/29/2016 14:23 Bedside Blood Glucose: 94 (Annotations: MD Notified) (QS system process) LaborFlag: Labor (QS system process) Datetime: 03/29/2016 14:20 Pitocin (milliunit): Pitocin Decreased to (milliunits) @ 8 (Hansa Halsmer, RN) Datetime: 03/29/2016 14:19 Patient Position/Activity: Right Extreme (Hansa Halsmer, RN) Datetime: 03/29/2016 14:16 NBP Sys/Maylin/Mean (mmHg): 123 (QS system process) : 72 (QS system process) : 91 (QS system process) Pulse: 92 (QS system process) Respirations: 16 (Hansa Halsmer, RN) LaborFlag: Labor (QS system process) Datetime: 03/29/2016 14:15 Monitor Mode: Internal (Hansa Halsmer, RN) Frequency (min): 2-3 (Hansa Halsmer, RN) Quality: Moderate (Hansa Halsmer, RN) Duration (sec): 50-80 (Hansa Halsmer, RN) Duration Criteria: Less than Two 120 Second Contractions (Hansa Halsmer, RN) Resting Tone (Palpate): Relaxed (Hansa Halsmer, RN) Monitor Mode: Internal Scalp Electrode (Hansa Halsmer, RN) FHR Baseline Rate : 150 (Hansa Halsmer, RN) FHR Baseline Changes: No Baseline Change (Hansa Halsmer, RN) Variability: Moderate 6-25 bpm (Hansa Halsmer, RN) Accelerations: 15X15 (Hansa Halsmer, RN) Decelerations: Late (Hnasa Halsmer, RN) Datetime: 03/29/2016 14:01 NBP Sys/Maylin/Mean (mmHg): 133 (QS system process) : 65 (QS system process) : 92 (QS system process) Pulse: 98 (QS system process) Respirations: 16 (Hansa Hou RN) LaborFlag: Labor (QS system process) Datetime: 03/29/2016 14:00 Monitor Mode: Internal (Hansa Hou RN) Frequency (min): 2-4 (Hansa Hou RN) Quality: Moderate (Hansa Hou RN) Duration (sec): 50-70 (Hansa Hou RN) Duration Criteria: Less than Two 120 Second Contractions (Hansa Hou RN) Resting Tone (Palpate): Relaxed (Hansa Hou RN) Monitor Mode: Internal Scalp Electrode (Hansa Hou RN) FHR Baseline Rate : 155 (Hansa Hou RN) Variability: Minimal - Undetectable to <=5 bpm (Hansa Hou RN) Decelerations: Early; Late (Hansa Hou RN) Pitocin (milliunit): Pitocin Remains (milliunits) @ (Annotations: 16) (Hansa Hou RN)
--- NOTE | 2016-03-29 17:58 | L&D Progress Notes ---
PROGRESS NOTES Datetime Report Generated by CPN: 03/29/2016 17:58 PROGRESS NOTE Impression: Normal Progression of Labor; Reassuring Heart Rate Procedures: Sterile Vag Exam Plan: Continue Present Management; Induction Informed Consent Obtained: Vaginal Delivery; Induction of Labor; Risks, Benefits and Alternatives Discussed Vital Signs : Reviewed; Within Normal Limits Comment: 38+4ega with poor Type II FM control here for IOL. cvx 5-6/80/-2. Cervical change noted. EFW 7.5# However now pt is having late decels again and intrauterine resuscitation and position change to occur to improve FHR tracing. Will continue with IOL. C/S for maternal/ indication. VAGINAL EXAM Dilatation: 5 Effacement: 80 Station: -2 Contractions: q 2-3 MEMBRANES Membranes: Ruptured Amniotic Fluid Color: Clear FETUS A FHR - Baseline: 150 Monitoring: Internal Scalp Electrode Variability: Moderate 6-25bpm Accelerations: 10X10 Decelerations: Early; Late; Variable FHR Category: Category II FETUS C SIGNATURE: [id number] Signature: with User ID: [email or web address]
--- NOTE | 2016-03-29 18:01 | L&D Flow Sheet ---
LD Flowsheet Datetime Report Generated by CPN: 03/29/2016 18:00 Datetime: 03/29/2016 17:57 Patient Position/Activity: Left Extreme (Hansa Halsmer, RN) Datetime: 03/29/2016 17:46 NBP Sys/Maylin/Mean (mmHg): 115 (QS system process) : 71 (QS system process) : 89 (QS system process) Pulse: 89 (QS system process) LaborFlag: Labor (QS system process) Datetime: 03/29/2016 17:45 Pitocin (milliunit): Pitocin Remains (milliunits) @ (Annotations: 8) (Hansa Halsmer, RN) Patient Position/Activity: Tailors (Hansa Halsmer, RN) Datetime: 03/29/2016 17:42 Dilatation (cm): 5.0 (Hansa Halsmer, RN) Effacement (%): 80 (Hansa Halsmer, RN) Station: -2 (Hansa Halsmer, RN) Exam by: DR FRANK (Hansa Halsmer, RN) Datetime: 03/29/2016 17:32 NBP Sys/Maylin/Mean (mmHg): 108 (QS system process) : 58 (QS system process) : 79 (QS system process) Pulse: 86 (QS system process) LaborFlag: Labor (QS system process) Datetime: 03/29/2016 17:30 Pitocin (milliunit): Pitocin Increased to (milliunits) @ (Annotations: 8) (Hansa Halsmer, RN) Datetime: 03/29/2016 17:17 Resting Tone IUP (mmHg): 25 (Hansa Halsmer, RN) Contraction Comments: TOTAL MVU'S 135 (Hansa Halsmer, RN) Datetime: 03/29/2016 17:16 NBP Sys/Maylin/Mean (mmHg): 104 (QS system process) : 61 (QS system process) : 75 (QS system process) Pulse: 89 (QS system process) LaborFlag: Labor (QS system process) Datetime: 03/29/2016 17:15 Pitocin (milliunit): Pitocin Remains (milliunits) @ (Annotations: 6) (Hansa Halsmer, RN) Datetime: 03/29/2016 17:12 I/O Interventions: Ice Chips Given (Hansa Halsmer, RN) Datetime: 03/29/2016 17:04 Patient Position/Activity: Right Extreme (Hansa Hou, RN) Datetime: 03/29/2016 17:00 NBP Sys/Maylin/Mean (mmHg): 114 (QS system process) : 68 (QS system process) : 86 (QS system process) Pulse: 81 (QS system process) Pitocin (milliunit): Pitocin Increased to (milliunits) @ (Annotations: 6) (Hansa Hou, RN) LaborFlag: Labor (QS system process) Datetime: 03/29/2016 16:45 NBP Sys/Maylin/Mean (mmHg): 112 (QS system process) : 69 (QS system process) : 86 (QS system process) Pulse: 80 (QS system process) Pitocin (milliunit): Pitocin Remains (milliunits) @ (Annotations: 4) (Hansa Hou RN) LaborFlag: Labor (QS system process) Datetime: 03/29/2016 16:42 Resting Tone IUP (mmHg): 25 (Hansa Hou RN) Contraction Comments: TOTAL MVU'S 145 (Hansa Hou RN) Datetime: 03/29/2016 16:31 NBP Sys/Maylin/Mean (mmHg): 114 (QS system process) : 70 (QS system process) : 87 (QS system process) Pulse: 76 (QS system process) Respirations: 16 (Hansa Hou RN) LaborFlag: Labor (QS system process) Datetime: 03/29/2016 16:30 Pitocin (milliunit): Pitocin Increased to (milliunits) @ (Annotations: 4) (Hansa Halsmer, RN) Datetime: 03/29/2016 16:29 Monitor Mode: Internal (Hansa Halsmer, RN) Frequency (min): 4-5 (Hansa Halsmer, RN) Quality: Mild/Moderate (Hansa Halsmer, RN) Duration (sec): 40-60 (Hansa Halsmer, RN) Duration Criteria: Less than Two 120 Second Contractions (Hansa Halsmer, RN) Resting Tone (Palpate): Relaxed (Hansa Halsmer, RN) Monitor Mode: Internal Scalp Electrode (Hansa Halsmer, RN) FHR Baseline Rate : 150 (Hansa Halsmer, RN) Variability: Moderate 6-25 bpm (Hansa Halsmer, RN) Decelerations: None (Hansa Halsmer, RN) Datetime: 03/29/2016 16:27 Communication Comments: BLOOD SUGAR 113 (Hansa Hou RN) Datetime: 03/29/2016 16:26 Bedside Blood Glucose: 113 H (Annotations: MD Notified) (QS system process) LaborFlag: Labor (QS system process) Datetime: 03/29/2016 16:15 NBP Sys/Maylin/Mean (mmHg): 111 (QS system process) : 72 (QS system process) : 87 (QS system process) Pulse: 100 (QS system process) Respirations: 16 (Hansa Hou RN) Temperature (F): 97.7 (Hansa Hou RN) Temperature (C): 36.5 (QS system process) Temperature Route: Oral (Hansa Hou RN) Monitor Mode: Internal (Hansa Hou RN) Frequency (min): 2-5 (Hansa Hou RN) Quality: Mild/Moderate (Hansa Hou RN) Duration (sec): 40-60 (Hansa Hou RN) Duration Criteria: Less than Two 120 Second Contractions (Hansa Hou RN) Resting Tone (Palpate): Relaxed (Hansa Hou RN) Resting Tone IUP (mmHg): 20 (Hansa Hou RN) Contraction Comments: TOTAL MVU'S 65 (Hansa Hou RN) Monitor Mode: Internal Scalp Electrode (Hansa Hou RN) FHR Baseline Rate : 165 (Hansa Hou RN) Variability: Minimal - Undetectable to <=5 bpm (Hansa Hou RN) Decelerations: None (Hansa Hou RN) Pain Scale: 0 (Hansa Hou RN) Pain Presence: None/Denies (Hansa Hou RN) Pain Type: N/A (Hansa Hou RN) Pitocin (milliunit): Pitocin Remains (milliunits) @ (Annotations: 2) (Hansa Hou RN) LaborFlag: Labor (QS system process) Datetime: 03/29/2016 16:10 Pitocin (milliunit): Pitocin Started (milliunits) @ 2; Pitocin 20 Units in 1000ml NS (Hansa Hou RN) Datetime: 03/29/2016 16:00 NBP Sys/Maylin/Mean (mmHg): 109 (QS system process) : 67 (QS system process) : 84 (QS system process) Pulse: 116 (QUETA system process) Respirations: 16 (Hansa Hou RN) Monitor Mode: Internal (Hansa Hou RN) Frequency (min): 3-5 (Hansa Hou RN) Quality: Mild/Moderate (Hansa Hou RN) Duration (sec): 30-80 (Hansa Hou RN) Resting Tone (Palpate): Relaxed (aHnsa Hou RN) Monitor Mode: Internal Scalp Electrode (Hansa Hou RN) FHR Baseline Rate : 165 (Hansa Hou RN) FHR Baseline Changes: No Baseline Change (Hansa Hou RN) Variability: Minimal - Undetectable to <=5 bpm (Hansa Hou RN) Decelerations: None (Hansa Hou RN) LaborFlag: Labor (QS system process)
--- NOTE | 2016-03-29 20:01 | L&D Flow Sheet ---
LD Flowsheet Datetime Report Generated by CPN: 03/29/2016 20:00 Datetime: 03/29/2016 19:54 Pitocin (milliunit): Pitocin Started (milliunits) @ 2; Pitocin 20 Units in 1000ml NS (Rubi Field, RN) Datetime: 03/29/2016 19:47 NBP Sys/Maylin/Mean (mmHg): 119 (QS system process) : 56 (QS system process) : 79 (QS system process) Pulse: 78 (QS system process) Antibiotics: Penicillin IV (Units) @ 2,500,000 (Rubi Madison RN) IV/Blood Work: IV Infusing per Order; New IV Bag Hung (Rubi Madison RN) LaborFlag: Labor (QS system process) Datetime: 03/29/2016 19:30 NBP Sys/Maylin/Mean (mmHg): 125 (QS system process) : 77 (QS system process) : 95 (QS system process) Pulse: 77 (QS system process) LaborFlag: Labor (QS system process) Datetime: 03/29/2016 19:25 Level of Consciousness: Fully Conscious (Rubi Madison RN) DTR's/Clonus: DTRs 1+; No Clonus (Rubi Madison RN) Headache: Denies (Rubi Madison RN) Breath Sounds, Left: Clear and Equal (Rubi Madison RN) Breath Sounds, Right: Clear and Equal (Rubi Madison RN) Nausea/Vomiting: Denies (Rubi Madison RN) RUQ Epigastric Pain: Denies (Rubi Field, RN) Datetime: 03/29/2016 19:20 Communication Comments: REPORT GIVEN AND CARE RELINQUISHED TO JYOTHI FLIEDS, RN AT THIS TIME (Hansa Halsmer, RN) Datetime: 03/29/2016 19:16 NBP Sys/Maylin/Mean (mmHg): 119 (QS system process) : 78 (QS system process) : 93 (QS system process) Pulse: 68 (QS system process) LaborFlag: Labor (QS system process) Datetime: 03/29/2016 19:01 NBP Sys/Maylin/Mean (mmHg): 122 (QS system process) : 78 (QS system process) : 92 (QS system process) Pulse: 71 (QS system process) Respirations: 16 (Hansa Halsmer, RN) LaborFlag: Labor (QS system process) Datetime: 03/29/2016 18:45 NBP Sys/Maylin/Mean (mmHg): 116 (QS system process) : 74 (QS system process) : 91 (QS system process) Pulse: 70 (QS system process) Respirations: 16 (Hansa Halsmer, RN) LaborFlag: Labor (QS system process) Datetime: 03/29/2016 18:38 Resting Tone IUP (mmHg): 15 (Hansa Halsmer, RN) Contraction Comments: 150 (Hansa Halsmer, RN) Datetime: 03/29/2016 18:30 NBP Sys/Maylin/Mean (mmHg): 113 (QS system process) : 71 (QS system process) : 87 (QS system process) Pulse: 81 (QS system process) Respirations: 16 (Hansa Halsmer, RN) Monitor Mode: Internal (Hansa Halsmer, RN) Frequency (min): 3-4 (Hansa Halsmer, RN) Quality: Moderate (Hansa Halsmer, RN) Duration (sec): 50-70 (Hansa Halsmer, RN) Duration Criteria: Less than Two 120 Second Contractions (Hansa Halsmer, RN) Resting Tone (Palpate): Relaxed (Hansa Halsmer, RN) Monitor Mode: Internal Scalp Electrode (Hansa Halsmer, RN) FHR Baseline Rate : 150 (Hansa Halsmer, RN) FHR Baseline Changes: No Baseline Change (Hansa Halsmer, RN) Variability: Moderate 6-25 bpm (Hansa Halsmer, RN) Decelerations: Late (Hansa Halsmer, RN) LaborFlag: Labor (QS system process) Datetime: 03/29/2016 18:22 Oxygen Method: Non-Rebreather (Hansa Halsmer, RN) Datetime: 03/29/2016 18:21 Pitocin (milliunit): Pitocin Discontinued (Hansa Hou, RN) Datetime: 03/29/2016 18:20 Resting Tone IUP (mmHg): 15 (Hansa Hou, RN) Contraction Comments: 170 (Hansa Hou, RN) Datetime: 03/29/2016 18:15 NBP Sys/Maylin/Mean (mmHg): 111 (QS system process) : 66 (QS system process) : 83 (QS system process) Pulse: 65 (QS system process) Respirations: 16 (Hansa Hou, RN) Temperature (F): 96.7 (Hansa Haldinoraher, RN) Temperature (C): 35.9 (QS system process) Temperature Route: Axillary (Hansa Hou, RN) Monitor Mode: Internal (Hansa Hou, RN) Frequency (min): 2-3 (Hansa Fairbankser, RN) Quality: Moderate (Hansa Halsmer, RN) Duration (sec): 50-70 (Hansa Halsmer, RN) Duration Criteria: Less than Two 120 Second Contractions (Hansa Fairbankser, RN) Resting Tone (Palpate): Relaxed (Hansa Fairbankser, RN) Monitor Mode: Internal Scalp Electrode (Hansa Hou, RN) Variability: Moderate 6-25 bpm (Hansa Haldinoraher, RN) Decelerations: Early; Late (Hansa Fairbankser, RN) Pitocin (milliunit): Pitocin Remains (milliunits) @ (Annotations: 8) (Hansa Hou, RN) LaborFlag: Labor (QS system process) Datetime: 03/29/2016 18:07 Patient Position/Activity: Hands-Knees (Hansa Halsmer, RN) Datetime: 03/29/2016 18:01 NBP Sys/Maylin/Mean (mmHg): 112 (QS system process) : 69 (QS system process) : 86 (QS system process) Pulse: 77 (QS system process) Respirations: 16 (Hansa Hou RN) LaborFlag: Labor (QS system process) Datetime: 03/29/2016 18:00 Monitor Mode: Internal (Hansa Hou RN) Frequency (min): 2-3 (Hansa Hou RN) Quality: Moderate (Hansa Hou RN) Duration (sec): 50-70 (Hansa Hou RN) Resting Tone (Palpate): Relaxed (Hansa Hou RN) Monitor Mode: Internal Scalp Electrode (Hansa Hou RN) FHR Baseline Rate : 155 (Hansa Hou RN) Variability: Moderate 6-25 bpm (Hansa Hou RN) Decelerations: Early; Late (Hansa Hou RN) Pitocin (milliunit): Pitocin Remains (milliunits) @ (Annotations: 8) (Hansa Hou RN)
[2016-03-29] MEDS ORDERED: ONDANSETRON HCL INJ/PF 4 MG/2 ML SDV IV PRN (20:07)
[2016-03-29] MEDS ORDERED: ONDANSETRON HCL INJ/PF 4 MG/2 ML SDV ONE (20:08)
--- NOTE | 2016-03-29 22:01 | L&D Flow Sheet ---
LD Flowsheet Datetime Report Generated by CPN: 03/29/2016 22:00 Datetime: 03/29/2016 21:45 NBP Sys/Maylin/Mean (mmHg): 99 (QS system process) : 52 (QS system process) : 72 (QS system process) Pulse: 71 (QS system process) LaborFlag: Labor (QS system process) Datetime: 03/29/2016 21:31 NBP Sys/Maylin/Mean (mmHg): 104 (QS system process) : 56 (QS system process) : 75 (QS system process) Pulse: 64 (QS system process) LaborFlag: Labor (QS system process) Datetime: 03/29/2016 21:23 Patient Position/Activity: Left Extreme; Peanut Ball (Rubi Field, RN) Datetime: 03/29/2016 21:20 Actions for Decelerations: Oxygen Applied (Rubi Field, RN) Datetime: 03/29/2016 21:16 NBP Sys/Maylin/Mean (mmHg): 120 (QS system process) : 71 (QS system process) : 87 (QS system process) Pulse: 74 (QS system process) LaborFlag: Labor (QS system process) Datetime: 03/29/2016 21:13 Patient Position/Activity: Peanut Ball; Right Extreme (Rubi Madison, RN) Datetime: 03/29/2016 21:10 Dilatation (cm): 6.5 (Rubi Madison RN) Effacement (%): 80 (Rubi Madison RN) Station: -1 (Rubi Madison RN) Exam by: GRISEL Ching (Rubi Madison, GRISEL) Datetime: 03/29/2016 21:00 NBP Sys/Maylin/Mean (mmHg): 98 (QS system process) : 52 (QS system process) : 71 (QS system process) Pulse: 67 (QS system process) Pitocin (milliunit): Pitocin Increased to (milliunits) @ 6 (Rubi Madison RN) LaborFlag: Labor (QS system process) Datetime: 03/29/2016 20:46 NBP Sys/Maylin/Mean (mmHg): 98 (QS system process) : 54 (QS system process) : 73 (QS system process) Pulse: 70 (QS system process) LaborFlag: Labor (QS system process) Datetime: 03/29/2016 20:30 NBP Sys/Maylin/Mean (mmHg): 98 (QS system process) : 57 (QS system process) : 75 (QS system process) Pulse: 75 (QS system process) Monitor Mode: Internal; Palpation (Rubi Madison RN) Frequency (min): 3-6 (Rubi Madison, RN) Quality: Moderate (Rubi Madison, RN) Duration (sec): 60-90 (Rubi Madison, RN) Resting Tone (Palpate): Relaxed (Rubi Madison, RN) Monitor Mode: Internal Scalp Electrode (Rubi Madison, RN) FHR Baseline Rate : 145 (Rubi Field, RN) Variability: Moderate 6-25 bpm (Rubi Field, RN) Accelerations: 10X10 (Rubi , RN) Decelerations: None (Rubi Madison, RN) Pitocin (milliunit): Pitocin Increased to (milliunits) @ 4 (Rubi Madison, RN) LaborFlag: Labor (QS system process) Datetime: 03/29/2016 20:29 Anesthesia Comments: Dr. Seaman at bedside to hang new bag (Rubi Field, RN) Datetime: 03/29/2016 20:27 Anesthesia Comments: Informed Dr. Seaman that epidural bag has run out. (Rubi Field, RN) Datetime: 03/29/2016 20:15 NBP Sys/Maylin/Mean (mmHg): 105 (QS system process) : 59 (QS system process) : 76 (QS system process) Pulse: 90 (QS system process) Monitor Mode: Internal; Palpation (Rubi Madison, RN) Frequency (min): 3-4 (Rubi Madison, RN) Quality: Moderate (Rubi , RN) Duration (sec): 60-150 (Rubi Madison, RN) Resting Tone (Palpate): Relaxed (Rubi Madison, RN) Monitor Mode: Internal Scalp Electrode (Rubi Field, RN) FHR Baseline Rate : 145 (Rubi Field, RN) Variability: Moderate 6-25 bpm (Rubi Field, RN) Accelerations: 10X10 (Rubi Field, RN) Decelerations: Variable (Rubi Field, RN) Pitocin (milliunit): Pitocin Remains (milliunits) @ 2 (Rubi Field, RN) LaborFlag: Labor (QS system process) Datetime: 03/29/2016 20:13 Antiemetics/Antacids: Zofran IV (mg) @ 4 (Rubi Madison, RN) Datetime: 03/29/2016 20:06 Patient Care Comments: Patient vomitting (Rubi Madison, RN) Datetime: 03/29/2016 20:00 NBP Sys/Maylin/Mean (mmHg): 100 (QS system process) : 58 (QS system process) : 74 (QS system process) Pulse: 78 (QS system process) Monitor Mode: Internal; Palpation (Rubi Madison RN) Frequency (min): 5-5.5 (Rubi Madison RN) Quality: Moderate (Rubi Madison RN) Duration (sec): 60-90 (Rubi Madison RN) Resting Tone (Palpate): Relaxed (Rubi Madison RN) Monitor Mode: Internal Scalp Electrode (Rubi Madison RN) FHR Baseline Rate : 145 (Rubi Madison RN) Variability: Moderate 6-25 bpm (Rubi Madison RN) Accelerations: 10X10 (Rubi Madison RN) Decelerations: None (Rubi Madison RN) Pitocin (milliunit): Pitocin Remains (milliunits) @ 2 (Rubi Madison RN) LaborFlag: Labor (QS system process)
[2016-03-29] MEDS ORDERED: ZOLPIDEM TARTRATE 5 MG TABLET PO PRN (23:36)
[2016-03-29] MEDS ORDERED: DIBUCAINE 1% OINTMENT 28 GM TP PRN (23:36)
[2016-03-29] MEDS ORDERED: MEASLES,MUMPS&RUBELLA VACC/PF 0.5 ML VIAL SUBCUT PRN (23:36)
[2016-03-29] MEDS ORDERED: ACETAMINOPHEN WITH CODEINE #3 TABLET PO PRN ×2 (23:36)
[2016-03-29] MEDS ORDERED: OXYTOCIN/NORMAL SALINE 1,000 ML IV PRN (23:36)
[2016-03-29] MEDS ORDERED: DIPH/PERTUSS(ACELL)/TETANUS VAC/PF 0.5 ML SYR (>=10YO) IM PRN (23:36)
[2016-03-29] MEDS ORDERED: BENZOCAINE/MENTHOL AEROSOL SPRAY 56 ML TOP PRN (23:36)
[2016-03-30] MEDS ORDERED: MISOPROSTOL 0.2 MG TABLET ONE (01:06)
--- NOTE | 2016-03-30 02:21 | Admission Physical ---
Datetime Report Generated by CPN: 03/30/2016 02:20 CURRENT ADMISSION Hx Assessment: The History has been Reviewed and is Current Chief Complaint: Scheduled Induction of Labor Indication for Induction: Maternal Diabetes Admit Impression- Other: type 2 DM on insulin poor compliance with medication Admit Plan: Admit to Unit; Initiate Labor Protocol ALLERGIES Medication Allergies: No Medication Allergies: No Known Allergies (03/29/2016) Latex: No Latex Allergies Food Allergies: None Environmental Allergies: None OBSTETRICAL HISTORY EDC: 04/08/2016 00:00 : 2 Para: 1 Term: 1 : 0 SAB: 0 IAB: 0 Ectopic: 0 Livin Cesareans: 0 VBACs: 0 Multiple Births: 0 Gestational Diabetes: No Rh Sensitization: No Incompetent Cervix: No BIRDIE: No Infertility: No ART Treatment: No Uterine Anomaly: No IUGR: No Hx Previous C/S: No Macrosomia: No Hx Loss/Stillborn: No PIH: No Hx : No Placenta Previa/Abruption: No Depression/PP Depression: No PTL/PROM: No Post Hemorrhage: No Current Procedures: Ultrasound; NST Obstetrical History Comments: GDM this 2004 SEE RECORDS Alcohol: No Marijuana : Yes Marijuana Comments: early in Cocaine: No Other Illicit Drugs: No Cigarettes: Former Smoker. 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 Surgery: No Heart Disease: No Hosp/Surgery: Yes Autoimmune Disorder: No Anesthetic Complications: No Kidney Disease: No Abnormal Pap Smear: Yes Neuro/Epilepsy: No Psychiatric Disorders: No Other Medical Diseases: No Hepatitis/Liver Disease: No Significant Family History: No Varicosities/Phlebitis: No Trauma/Violence : No Thyroid Dysfunction: No Medical History Comments: PCOS, Obesity, childbirth x1, infertility, marijuana use, previous smoker, Type 2 diabetes x 2 years noncompliant with medications, ASCUS on pap INFECTIOUS HISTORY Gonorrhea: No Genital Herpes: No Chlamydia: Yes Tuberculosis: No Syphilis: No Hepatitis: No HIV/AIDS Exposure: No Rash or Viral Illness: No HPV: No Infectious History Comments: chlmaydia 2004 PHYSICAL EXAM General: Normal HEENT: Normal Neurologic: Normal Thyroid: Normal Heart: Normal Lungs: Normal Breast: Normal Back: Normal Abdomen: Normal Genitourinary Exam: Normal Extremities: Normal DTRs: Normal Pelvic Type: Adequate Physical Exam Comments: Bilateral lower extremity edema- 2+ Vital Signs: Reviewed; Within Normal Limits VAGINAL EXAM Dilatation: 5 Effacement: 80 Station: -2 Contraction Comments: q 2-3 MEMBRANES Pooling: Positive Membranes: Ruptured Amniotic Fluid Color: Clear FETUS A EGA: 38.4 Monitoring: External US FHR- Baseline: 155 Decelerations: None Admit Comment: 31yo @ 38w4d admitted earlier this am by Dr. Griggs for IOL secondary to type 2DM. Pt on insulin. O neg blood type, positive GBS, NKDA. also complicated by Obesity. Medical hx also includes PCOS and infertility. See records for complete care. Received insulin on admission for elevated glucose. PLANS FOR LABOR AND DELIVERY Labor and Delivery: None Pain Management: Epidural Feeding Preference: Both Benefit of Breast Feed Discussed: Yes Circumcision: N/A INFORMED CONSENT Informed Consent Obtained: Vaginal Delivery; Induction of Labor; Risks, Benefits and Alternatives Discussed Assignment: Kiel Griggs DO Signature: with User ID: [email or web address] : with User ID: [email or web address]
--- NOTE | 2016-03-30 02:42 | Delivery Summary ---
Del Sum A-C Datetime Report Generated by CPN: 03/30/2016 02:41 ADMISSION DATA Chief Complaint: Scheduled Induction of Labor Indication for Induction: Maternal Diabetes Admission Impression: Term, Intrauterine Admission Impression Comments: type 2 DM on insulin poor compliance with medication Admit Provider Comments: 31yo @ 38w4d admitted earlier this am by Dr. Griggs for IOL secondary to type 2DM. Pt on insulin. O neg blood type, positive GBS, NKDA. also complicated by Obesity. Medical hx also includes PCOS and infertility. See records for complete care. Received insulin on admission for elevated glucose. DELIVERY PERSONNEL Delivery Doctor:: Vielka Rowley MD Labor and Delivery Nurse:: Rubi Madison RNrange operator Nurse:: Myrtle Nunez RN Nursery Nurse:: Lyly Roberson RN Nursery Nurse:: Lisbeth Grewal RN Bread Wrapper/KNOCK OUT HAND: [facility] Additional Personnel: : Diane Iraheta RN MATERNAL INFORMATION Delivery Anesthesia: Epidural Medications After Delivery: Pitocin Drip 20 Units/1000ml NSS Maternal Complications: None Provider Comments: VFI delivered in GLORIA presentation, no nuchal cord. Adequate vaginal room for delivery. Initially bed unable to be broken down due to iminent delivery of the head. However, upon delivery of the head the shoulders would not deliver under the pubic done. Suprabuc pressure and Lesly performed without relief of the shoulder dystocia. Jason screw and Rubins attempted without relief of dystocia. Posterior Arm (right arm) located and flexed and delivered with prompt relief of shoulder dystocia and delivery of . Approx 1min to 1.5min total time of dystocia. Nursery was notified. Infant moving all extremities well and Nursery in to evaluate. Apgars 7/9 Weight pending. Mother and baby stable upon provider leaving the room. LABOR SUMMARY EDC: 04/08/2016 00:00 No. Babies in Womb: 1 Attempted: No Labor Anesthesia: Epidural LABOR INFORMATION Reason for Induction: Maternal Diabetes Onset of Labor: 03/29/2016 11:24 Complete Dilatation: 03/29/2016 23:00 Oxytocin: Induction Group B Beta Strep: Positive Antibiotics # of Doses: 4 Antibiotics Time of Last Dose: 1946 Name of Antibiotic Given: PCN Steroids Given: None Reason Steroids Not Administered: Not Applicable MEMBRANES Membranes Rupture Method: Artificial Rupture of Membranes: 03/29/2016 11:24 Length of Rupture (hr): 11.82 Amniotic Fluid Color: Clear Amniotic Fluid Amount: Moderate Amniotic Fluid Odor: Normal STAGES OF LABOR Stage 1 hr: 11 Stage 1 min: 36 Stage 2 hr: 0 Stage 2 min: 13 Stage 3 hr: 0 Stage 3 min: 4 Total Time in Labor hr: 11 Total Time in Labor min: 53 VAGINAL DELIVERY Episiotomy: None Laceration Extension: N/A Laceration Type: None Laceration Repair: Not Applicable Laceration Repair Note: No repair needed Sponge Count Correct: Yes Sharps Count Correct: N/A CSECTION DELIVERY Primary Indication: N/A Secondary Indication: N/A CSection Incidence: N/A Labor: N/A Elective: N/A CSection Incision: N/A BABY A INFORMATION Infant Delivery Date/Time: 03/29/2016 23:13 Method of Delivery: Vaginal Born in Route : No : N/A Forceps: N/A Vacuum Extraction: N/A Shoulder Dystocia : Yes SHOULDER DYSTOCIA BABY A Delivery of Head: 03/29/2016 23:11 Time Head to Delivery : 2.0 1st Intervention to Resolve: McRobert's Maneuver 2nd Intervention to Resolve: Suprapubic Pressure 3rd Intervention to Resolve: Hastings's Maneuver 4th Intervention to Resolve: Jason Maneuver 5th Intervention to Resolve: Posterior Arm Release Verify NO Fundal Pressure: No Fundal Pressure Applied Arm Under Symphisis at Del: Left PRESENTATION/POSITION BABY A Presentation: Cephalic Cephalic Presentation: Vertex Vertex Position: Right Occipital Anterior Breech Presentation: N/A PLACENTA INFORMATION BABY A Placenta Delivery Time : 03/29/2016 23:17 Placenta Method of Delivery: Spontaneous Placenta Status: Delivered SCORES BABY A Heart Rate 1 min: >100 bpm Resp Effort 1 min: Good Cry Reflex Irritability 1 min: Cough or Sneeze or Pulls Away Muscle Tone 1 min: Some Flexion of Extremities Color 1 min: Blue/Pale Resuscitation Effort 1 min: Tactile Stimulation SCORE 1 MIN: 7 Heart Rate 5 min: >100 bpm Resp Effort 5 min: Good Cry Reflex Irritability 5 min: Cough or Sneeze or Pulls Away Muscle Tone 5 min: Active Motion Color 5 min: Body [place], Extremities Blue Resuscitation Effort 5 min: Tactile Stimulation SCORE 5 MIN: 9 INFORMATION BABY A Gestational Age at Delivery: 38.4 Gestational Status: Early Term- 37- 38.6 Weeks Infant Outcome : Liveborn Infant Condition : Stable Sex: Female IDENTIFICATION BABY A Infant Verification Date/Time: 03/29/2016 23:21 ID Band Number: [id number] Mother's Name Verified: Yes RN Verifying : SJovany Nunez, RN Additional Verifying Personnel: Ary Bhakta, KNOCK OUT HAND/ WEIGHT/LENGTH BABY A Infant Birthweight (gm): 3745 Infant Weight (lb): 8 Weight (oz): 4 Infant Length (in): 21.00 Length (cm): 53.34 CORD INFORMATION BABY A No. Cord Vessels: 3 Nuchal Cord : N/A Cord Blood Taken: Yes-For Eval (Mom's Blood Type - or O+) ASSESSMENT BABY A Infant Complications: Multiple Late Decels; Multiple Variable Decels; Shoulder Dystocia Physical Findings at Delivery: Caput Succedaneum; Molding of the Head; Puncture Wound from Scalp Electrode Infant Respirations: Appears Normal Skin to Skin: Yes Skin to Skin Time (min): 30 Asian Art Curator/ALS Called : No Care By: Kaur Roberson RN Transferred To: Remains with Mother BABY B INFORMATION : N/A
[2016-03-30] MEDS ORDERED: INFLUENZA ADLT QUAD (36MOS+) 2016-17 VAC 0.5 ML SYR IM PRN (03:15)
[2016-03-30] MEDS: IBUPROFEN 800 MG TABLET PO SCH ×3 (05:28→22:03)
--- NOTE | 2016-03-30 07:01 | L&D Flow Sheet ---
LD Flowsheet Datetime Report Generated by CPN: 03/30/2016 07:00 Datetime: 03/30/2016 06:33 Bedside Blood Glucose: 121 H (QS system process) Datetime: 03/30/2016 01:45 Stage of : Recovery (Rubi Field, RN) NBP Sys/Maylin/Mean (mmHg): 130 (QS system process) : 74 (QS system process) : 95 (QS system process) Pulse: 83 (QS system process) Datetime: 03/30/2016 01:31 Bedside Blood Glucose: 206 H (QS system process) Datetime: 03/30/2016 01:30 Stage of : Recovery (Rubi , RN) NBP Sys/Maylin/Mean (mmHg): 124 (QS system process) : 66 (QS system process) : 89 (QS system process) Pulse: 87 (QS system process) Datetime: 03/30/2016 01:15 Stage of : Recovery (Rubi , GRISEL) NBP Sys/Maylin/Mean (mmHg): 122 (QS system process) : 69 (QS system process) : 85 (QS system process) Pulse: 80 (QS system process) Datetime: 03/30/2016 01:00 Stage of : Recovery (Rubi Madison ) NBP Sys/Maylin/Mean (mmHg): 121 (QS system process) : 65 (QS system process) : 84 (QS system process) Pulse: 86 (QS system process) Datetime: 03/30/2016 00:45 Stage of : Recovery (Rubi Field ) NBP Sys/Maylin/Mean (mmHg): 118 (QS system process) : 66 (QS system process) : 85 (QS system process) Pulse: 81 (QS system process) Datetime: 03/30/2016 00:30 Stage of : Recovery (Rubi Madison, GRISEL) NBP Sys/Maylin/Mean (mmHg): 119 (QS system process) : 65 (QS system process) : 86 (QS system process) Pulse: 80 (QS system process) Temperature (F): 98.4 (Rubi Madison, RN) Temperature (C): 36.9 (QS system process) Temperature Route: Axillary (Rubi Madison, RN) Datetime: 03/30/2016 00:16 NBP Sys/Maylin/Mean (mmHg): 131 (QS system process) : 79 (QS system process) : 100 (QS system process) Pulse: 80 (QS system process) Datetime: 03/30/2016 00:15 Stage of : Recovery (Rubi Madison RN) Datetime: 03/30/2016 00:01 NBP Sys/Maylin/Mean (mmHg): 123 (QS system process) : 65 (QS system process) : 88 (QS system process) Pulse: 79 (QS system process) Datetime: 03/30/2016 00:00 Stage of : Recovery (Rubi Field, RN) Datetime: 03/29/2016 23:45 Stage of : Recovery (Rubi Field, RN) Datetime: 03/29/2016 23:31 NBP Sys/Maylin/Mean (mmHg): 135 (QS system process) : 82 (QS system process) : 102 (QS system process) Pulse: 93 (QS system process) Datetime: 03/29/2016 23:30 [facility] : [facility] Datetime: 03/29/2016 23:15 Stage of : Recovery (Myrtle Lattibeaudeir, RN) NBP Sys/Maylin/Mean (mmHg): 148 (QS system process) : 89 (QS system process) : 113 (QS system process) Pulse: 100 (QS system process) Datetime: 03/29/2016 23:01 Dilatation (cm): 10.0 (Rubi Madison RN) Effacement (%): 100 (Rubi Madison RN) Station: 3 (Rubi Madison RN) Exam by: GRISEL Ching/GRISEL Navarro (Rubi Madison RN) Datetime: 03/29/2016 23:00 NBP Sys/Maylin/Mean (mmHg): 119 (QS system process) : 69 (QS system process) : 90 (QS system process) Pulse: 90 (QS system process) Monitor Mode: External; Palpation (Rubi Madsion RN) Frequency (min): 2-3.5 (Rubi Madison RN) Quality: Moderate (Rubi Madison RN) Duration (sec): 70 (Rubi Madison RN) Resting Tone (Palpate): Relaxed (Rubi Madison RN) Monitor Mode: Internal Scalp Electrode (Rubi Madison RN) FHR Baseline Rate : 145 (Rubi Madison RN) Variability: Moderate 6-25 bpm (Rubi Madison RN) Accelerations: 10X10 (Rubi Madison RN) Decelerations: Variable (Rubi Madison RN) Dilatation (cm): 10.0 (Myrtle Nunez RN) Effacement (%): 100 (Myrtle Nunez RN) Station: 2 (Myrtle Nunez RN) Exam by: Adelaida Madison RN _ Kaur Nunez RN (Myrtle Nunez RN) Pitocin (milliunit): Pitocin Remains (milliunits) @ 6 (Rubi Madison RN) LaborFlag: Labor (QS system process) Datetime: 03/29/2016 22:50 Contraction Comments: IUPC fell out; Oasis reapplied (Rubi Madison, RN) Datetime: 03/29/2016 22:46 NBP Sys/Maylin/Mean (mmHg): 123 (QS system process) : 70 (QS system process) : 91 (QS system process) Pulse: 78 (QS system process) LaborFlag: Labor (QS system process) Datetime: 03/29/2016 22:45 Monitor Mode: Internal; Palpation (Rubi Field, RN) Frequency (min): 3-3.5 (Rubi Field, RN) Quality: Moderate (Rubi Field, RN) Duration (sec): 50-60 (Rubi Field, RN) Resting Tone (Palpate): Relaxed (Rubi Field, RN) Monitor Mode: Internal Scalp Electrode (Rubi Field, RN) FHR Baseline Rate : 150 (Rubi Field, RN) Variability: Moderate 6-25 bpm (Rubi Field, RN) Accelerations: 15X15 (Rbui Field, RN) Decelerations: Variable (Rubi Field, RN) Pitocin (milliunit): Pitocin Remains (milliunits) @ 6 (Rubi Field, RN) Datetime: 03/29/2016 22:31 NBP Sys/Maylin/Mean (mmHg): 115 (QS system process) : 76 (QS system process) : 92 (QS system process) Pulse: 80 (QS system process) LaborFlag: Labor (QS system process) Datetime: 03/29/2016 22:30 Monitor Mode: Internal; Palpation (Rubi Field, RN) Frequency (min): 2.5-3.5 (Rubi Field, RN) Quality: Moderate (Rubi Field, RN) Duration (sec): 60 (Rubi Field, RN) Resting Tone (Palpate): Relaxed (Rubi Field, RN) Monitor Mode: Internal Scalp Electrode (Rubi Field, RN) FHR Baseline Rate : 145 (Rubi Field, RN) Variability: Moderate 6-25 bpm (Rubi Field, RN) Accelerations: 10X10 (Rubi Field, RN) Decelerations: Early; Variable (Rubi Field, RN) Pitocin (milliunit): Pitocin Remains (milliunits) @ 6 (Rubi Field, RN) Datetime: 03/29/2016 22:15 NBP Sys/Maylin/Mean (mmHg): 115 (QS system process) : 70 (QS system process) : 88 (QS system process) Pulse: 82 (QS system process) Monitor Mode: Internal; Palpation (Rubi Madison, RN) Frequency (min): 2.5-3.5 (Rubi Madison, RN) Quality: Moderate (Rubi , RN) Duration (sec): 50-80 (Rubi , RN) Resting Tone (Palpate): Relaxed (Rubi Field, RN) Monitor Mode: Internal Scalp Electrode (Rubi Field, RN) FHR Baseline Rate : 145 (Rubi Field, RN) Variability: Moderate 6-25 bpm (Rubi Field, RN) Accelerations: None (Rubi Field, RN) Decelerations: Early; Variable (Rubi Field, RN) Pitocin (milliunit): Pitocin Remains (milliunits) @ 6 (Rubi Madison, RN) LaborFlag: Labor (QS system process) Datetime: 03/29/2016 22:01 NBP Sys/Maylin/Mean (mmHg): 118 (QS system process) : 71 (QS system process) : 90 (QS system process) Pulse: 71 (QS system process) LaborFlag: Labor (QS system process) Datetime: 03/29/2016 22:00 Monitor Mode: Internal; Palpation (Rubi Field, RN) Frequency (min): 2-3.5 (Rubi Field, RN) Quality: Moderate (Rubi Field, RN) Duration (sec): 60-90 (Rubi Field, RN) Resting Tone (Palpate): Relaxed (Rubi Field, RN) Monitor Mode: Internal Scalp Electrode (Rubi Field, RN) FHR Baseline Rate : 145 (Rubi Field, RN) Variability: Moderate 6-25 bpm (Rubi Field, RN) Accelerations: None (Rubi Field, RN) Decelerations: Early; Variable (Rubi Field, RN) Pitocin (milliunit): Pitocin Remains (milliunits) @ 6 (Rubi Field, RN) Datetime: 03/29/2016 21:55 Patient Position/Activity: Hands-Knees (Myrtle Lattibeaudeir, RN) Datetime: 03/29/2016 21:45 NBP Sys/Maylin/Mean (mmHg): 99 (QS system process) : 52 (QS system process) : 72 (QS system process) Pulse: 71 (QS system process) Monitor Mode: Internal; Palpation (Rubi Madison, RN) Frequency (min): 3-3.5 (Rubi Madison, RN) Quality: Moderate (Rubi Madison, RN) Duration (sec): 50-60 (Rubi Madison, RN) Resting Tone (Palpate): Relaxed (Rubi Madison, RN) Monitor Mode: Internal Scalp Electrode (Rubi Madison, RN) FHR Baseline Rate : 145 (Rubi Madison, RN) Variability: Moderate 6-25 bpm (Rubi Madison, RN) Accelerations: None (Rubi Madison, RN) Decelerations: Early; Late; Variable (Rubi Madison, RN) Pitocin (milliunit): Pitocin Remains (milliunits) @ 6 (Rubi Madison, RN) LaborFlag: Labor (QS system process) Datetime: 03/29/2016 21:31 NBP Sys/Maylin/Mean (mmHg): 104 (QS system process) : 56 (QS system process) : 75 (QS system process) Pulse: 64 (QS system process) LaborFlag: Labor (QS system process) Datetime: 03/29/2016 21:30 Monitor Mode: Internal; Palpation (Rubi Field, RN) Frequency (min): 2.5-3.5 (Rubi Field, RN) Quality: Moderate (Rubi Field, RN) Duration (sec): 60-80 (Rubi Field, RN) Resting Tone (Palpate): Relaxed (Rubi Field, RN) Monitor Mode: Internal Scalp Electrode (Rubi Field, RN) FHR Baseline Rate : 145 (Rubi Field, RN) Variability: Moderate 6-25 bpm (Rubi Field, RN) Accelerations: None (Rubi Field, RN) Decelerations: Early; Late; Variable (Rubi Field, RN) Pitocin (milliunit): Pitocin Remains (milliunits) @ 6 (Rubi Field, RN) Datetime: 03/29/2016 21:23 Patient Position/Activity: Left Extreme; Peanut Ball (Rubi Field, RN) Datetime: 03/29/2016 21:20 Actions for Decelerations: Oxygen Applied (Rubi Field, RN) Datetime: 03/29/2016 21:16 NBP Sys/Maylin/Mean (mmHg): 120 (QS system process) : 71 (QS system process) : 87 (QS system process) Pulse: 74 (QS system process) LaborFlag: Labor (QS system process) Datetime: 03/29/2016 21:15 Monitor Mode: Internal; Palpation (Rubi Field, RN) Frequency (min): 2.5-3.5 (Rubi Field, RN) Quality: Moderate (Rubi Field, RN) Duration (sec): 70-100 (Rubi Field, RN) Resting Tone (Palpate): Relaxed (Rubi Field, RN) Monitor Mode: Internal Scalp Electrode (Rubi Field, RN) FHR Baseline Rate : 145 (Rubi Field, RN) Variability: Moderate 6-25 bpm (Rubi Field, RN) Accelerations: 15X15 (Rubi Madison, RN) Decelerations: Early; Late; Variable (Rubi Madison, RN) Pitocin (milliunit): Pitocin Remains (milliunits) @ 6 (Rubi Madison, RN) Datetime: 03/29/2016 21:13 Patient Position/Activity: Peanut Ball; Right Extreme (Rubi Madison, RN) Datetime: 03/29/2016 21:10 Dilatation (cm): 6.5 (Rubi Madison, RN) Effacement (%): 80 (Rubi Madison, RN) Station: -1 (Rubi Madison, RN) Exam by: GRISEL Ching (Rubi Madison, RN) Datetime: 03/29/2016 21:00 NBP Sys/Maylin/Mean (mmHg): 98 (QS system process) : 52 (QS system process) : 71 (QS system process) Pulse: 67 (QS system process) Monitor Mode: Internal; Palpation (Rubi Field, RN) Frequency (min): 4 (Rubi Field, RN) Quality: Moderate (Rubi Field, RN) Duration (sec): 60-90 (Rubi Field, RN) Resting Tone (Palpate): Relaxed (Rubi Field, RN) Monitor Mode: Internal Scalp Electrode (Rubi Field, RN) FHR Baseline Rate : 145 (Rubi Field, RN) Variability: Moderate 6-25 bpm (Rubi Field, RN) Accelerations: 10X10 (Rbui Field, RN) Decelerations: Late; Variable (Rubi Field, RN) Pitocin (milliunit): Pitocin Increased to (milliunits) @ 6 (Rubi Field, RN) LaborFlag: Labor (QS system process) Datetime: 03/29/2016 20:46 NBP Sys/Maylin/Mean (mmHg): 98 (QS system process) : 54 (QS system process) : 73 (QS system process) Pulse: 70 (QS system process) LaborFlag: Labor (QS system process) Datetime: 03/29/2016 20:45 Monitor Mode: Internal; Palpation (Rubi Field, RN) Frequency (min): 3.5-4 (Rubi Field, RN) Quality: Moderate (Rubi Field, RN) Duration (sec): 70-80 (Rubi Field, RN) Resting Tone (Palpate): Relaxed (Rubi Field, RN) Monitor Mode: Internal Scalp Electrode (Rubi Field, RN) FHR Baseline Rate : 145 (Rubi Field, RN) Variability: Moderate 6-25 bpm (Rubi Field, RN) Accelerations: None (Rubi Field, RN) Decelerations: Variable (Rubi Field, RN) Pitocin (milliunit): Pitocin Remains (milliunits) @ 4 (Rubi Field, RN) Datetime: 03/29/2016 20:30 NBP Sys/Maylin/Mean (mmHg): 98 (QS system process) : 57 (QS system process) : 75 (QS system process) Pulse: 75 (QS system process) Monitor Mode: Internal; Palpation (Rubi Field, RN) Frequency (min): 3-6 (Rubi Field, RN) Quality: Moderate (Rubi Field, RN) Duration (sec): 60-90 (Rubi Field, RN) Resting Tone (Palpate): Relaxed (Rubi Field, RN) Monitor Mode: Internal Scalp Electrode (Rubi Field, RN) FHR Baseline Rate : 145 (Rubi Field, RN) Variability: Moderate 6-25 bpm (Rubi Field, RN) Accelerations: 10X10 (Rubi Field, RN) Decelerations: None (Rubi Field, RN) Pitocin (milliunit): Pitocin Increased to (milliunits) @ 4 (Rubi Field, RN) LaborFlag: Labor (QS system process) Datetime: 03/29/2016 20:29 Anesthesia Comments: Dr. Seaman at bedside to hang new bag (Rubi Field, RN) Datetime: 03/29/2016 20:27 Anesthesia Comments: Informed Dr. Seaman that epidural bag has run out. (Rubi Field, RN) Datetime: 03/29/2016 20:15 NBP Sys/Maylin/Mean (mmHg): 105 (QS system process) : 59 (QS system process) : 76 (QS system process) Pulse: 90 (QS system process) Monitor Mode: Internal; Palpation (Rubi Madison, RN) Frequency (min): 3-4 (Rubi Field, RN) Quality: Moderate (Rubi Field, RN) Duration (sec): 60-150 (Rubi Field, RN) Resting Tone (Palpate): Relaxed (Rubi Field, RN) Monitor Mode: Internal Scalp Electrode (Rubi Field, RN) FHR Baseline Rate : 145 (Rubi Field, RN) Variability: Moderate 6-25 bpm (Rubi Field, RN) Accelerations: 10X10 (Rubi Field, RN) Decelerations: Variable (Rubi Field, RN) Pitocin (milliunit): Pitocin Remains (milliunits) @ 2 (Rubi Field, RN) LaborFlag: Labor (QS system process) Datetime: 03/29/2016 20:13 Antiemetics/Antacids: Zofran IV (mg) @ 4 (Rubi Field, RN) Datetime: 03/29/2016 20:07 Communication: RN Reviewed Strip; Provider Orders Received (Rubi Field, RN) Communication Comments: Orders received from Dr. Rowley for Zofran 4 mg IV now up to 8 mg q6h (Rubi Field, RN) Datetime: 03/29/2016 20:06 Patient Care Comments: Patient vomitting (Rubi Field, RN) Datetime: 03/29/2016 20:00 NBP Sys/Maylin/Mean (mmHg): 100 (QS system process) : 58 (QS system process) : 74 (QS system process) Pulse: 78 (QS system process) Monitor Mode: Internal; Palpation (Rubi Field, RN) Frequency (min): 5-5.5 (Rubi Field, RN) Quality: Moderate (Rubi Field, RN) Duration (sec): 60-90 (Rubi Field, RN) Resting Tone (Palpate): Relaxed (Rubi Field, RN) Monitor Mode: Internal Scalp Electrode (Rubi Field, RN) FHR Baseline Rate : 145 (Rubi Field, RN) Variability: Moderate 6-25 bpm (Rubi Field, RN) Accelerations: 10X10 (Rubi Field, RN) Decelerations: None (Rubi Field, RN) Pitocin (milliunit): Pitocin Remains (milliunits) @ 2 (Rubi Field, RN) LaborFlag: Labor (QS system process) Datetime: 03/29/2016 19:54 Pitocin (milliunit): Pitocin Started (milliunits) @ 2; Pitocin 20 Units in 1000ml NS (Rubi Field, RN) Datetime: 03/29/2016 19:47 NBP Sys/Maylin/Mean (mmHg): 119 (QS system process) : 56 (QS system process) : 79 (QS system process) Pulse: 78 (QS system process) Antibiotics: Penicillin IV (Units) @ 2,500,000 (Rubi Madison, RN) IV/Blood Work: IV Infusing per Order; New IV Bag Hung (Rubi Madison RN) LaborFlag: Labor (QS system process) Datetime: 03/29/2016 19:45 Monitor Mode: Internal; Palpation (Rubi Field, RN) Frequency (min): 4 (Rubi Field, RN) Quality: Moderate (Rubi Field, RN) Duration (sec): 80-120 (Rubi Field, RN) Resting Tone (Palpate): Relaxed (Rubi Field, RN) Monitor Mode: Internal Scalp Electrode (Rubi Field, RN) FHR Baseline Rate : 140 (Rubi Field, RN) Variability: Moderate 6-25 bpm (Rubi Field, RN) Accelerations: 15X15 (Rubi Field, RN) Decelerations: Variable (Rubi Field, RN) Datetime: 03/29/2016 19:39 Patient Position/Activity: Left Extreme; Peanut Ball (Rubi Madison, RN) Patient Care Comments: Moving patient (Rubi Madison, RN) Datetime: 03/29/2016 19:30 NBP Sys/Maylin/Mean (mmHg): 125 (QS system process) : 77 (QS system process) : 95 (QS system process) Pulse: 77 (QS system process) Monitor Mode: Internal; Palpation (Rubi Field, RN) Frequency (min): 4 (Urbi Field, RN) Quality: Moderate (Rubi Field, RN) Duration (sec): 70-90 (Rubi Field, RN) Resting Tone (Palpate): Relaxed (Rubi Field, RN) Monitor Mode: Internal Scalp Electrode (Rubi Field, RN) FHR Baseline Rate : 145 (Rubi Field, RN) Variability: Moderate 6-25 bpm (Rubi Field, RN) Accelerations: 15X15 (Rubi Field, RN) Decelerations: Variable (Rubi Field, RN) LaborFlag: Labor (QS system process) Datetime: 03/29/2016 19:25 Level of Consciousness: Fully Conscious (Rubi Field, RN) DTR's/Clonus: DTRs 1+; No Clonus (Rubi Field, RN) Headache: Denies (Rubi Field, RN) Breath Sounds, Left: Clear and Equal (Rubi Field, RN) Breath Sounds, Right: Clear and Equal (Rubi Field, RN) Nausea/Vomiting: Denies (Rubi Field, RN) RUQ Epigastric Pain: Denies (Rubi Field, RN) Datetime: 03/29/2016 19:20 Communication Comments: REPORT GIVEN AND CARE RELINQUISHED TO JYOTHI CARVAJAL, RN AT THIS TIME ([facility]) Datetime: 03/29/2016 19:16 NBP Sys/Maylin/Mean (mmHg): 119 (QS system process) : 78 (QS system process) : 93 (QS system process) Pulse: 68 (QS system process) LaborFlag: Labor (QS system process) Datetime: 03/29/2016 19:15 Monitor Mode: Internal; Palpation (Rubi Field, RN) Frequency (min): 6 (Rubi Field, RN) Quality: Moderate (Rubi Field, RN) Duration (sec): 90-120 (Rubi Field, RN) Resting Tone (Palpate): Relaxed (Rubi Field, RN) Monitor Mode: Internal Scalp Electrode (Rubi Field, RN) FHR Baseline Rate : 145 (Rubi Field, RN) Variability: Moderate 6-25 bpm (Rubi Field, RN) Accelerations: 15X15 (Rubi Field, RN) Decelerations: Late; Variable (Rubi Field, RN) Datetime: 03/29/2016 19:01 NBP Sys/Maylin/Mean (mmHg): 122 (QS system process) : 78 (QS system process) : 92 (QS system process) Pulse: 71 (QS system process) Respirations: 16 (Hansa Hou RN) LaborFlag: Labor (QS system process)
[2016-03-30 07:31] LABS: HEMATOCRIT 34.3 % (36.0-47.0); HEMOGLOBIN 11.8 g/dL (12.0-15.5); HGB HCT DIFFERENCE 1.1; MEAN CORPUSCULAR HEMOGLOBIN 31.3 pg (27.0-33.4); MEAN CORPUSCULAR HGB CONC 34.3 g/dL (32.0-36.0); MEAN CORPUSCULAR VOLUME 91 fl (80-97); RED BLOOD COUNT 3.75 10^6/uL (3.72-5.28); RED CELL DISTRIBUTION WIDTH 13.7 % (11.5-14.0); WHITE BLOOD COUNT 21.3 10^3/uL (4.0-10.5)
[2016-03-30] MEDS ORDERED: GLUCAGON,HUMAN RECOMB 1 MG INJ IM PRN (07:38)
[2016-03-30] MEDS ORDERED: DEXTROSE 50%-WATER SYRINGE 25 GM/50 ML DOSE IV PRN (07:38)
[2016-03-30] MEDS ORDERED: DEXTROSE 40% GEL 15 GM TUBE X 2 PO PRN (07:38)
[2016-03-30] MEDS ORDERED: DEXTROSE 50%-WATER SYRINGE 12.5 GM/25 ML DOSE IV PRN (07:38)
[2016-03-30] MEDS ORDERED: DEXTROSE 40% GEL 15 GM TUBE PO PRN (07:38)
[2016-03-30] MEDS: INSULIN REG, HUMAN 100 UNIT/ML 3 ML VIAL (PYX) SUBCUT SCH ×3 (09:30→19:40)
[2016-03-30] MEDS: SENNOSIDES/DOCUSATE 8.6-50 MG 1 EACH TABLET PO SCH (10:10)
[2016-03-30] MEDS: FERROUS SULFATE 325 MG TABLET PO SCH ×2 (10:11→17:49)
[2016-03-30] MEDS: DOCUSATE SODIUM 100 MG CAPSULE PO SCH ×2 (10:11→17:49)
[2016-03-30] MEDS: PRENATAL VITAMIN W-O CA NO5/FE FUMARATE/FA CAPSULE PO SCH (10:12)
[2016-03-30] MEDS: INSULIN NPH (ISOPHANE), HUMAN 100 UNIT/ML 3 ML SUBCUT SCH ×3 (10:12→22:30)
--- NOTE | 2016-03-30 12:39 | PDOC PROGRESS REPORT ---
Subjective-OB Subjective: Post Delivery Day: 31 year old. Denies any needs at this time s/p vaginal delivery now type 2 diabetic poorly controlled managing blood sugars independently blood sugar 190 nurse reviewed with pt to follow sliding scale pt administered rapid acting offers no complaints currently eating cautioned pt to see transition social worker upon discharge for labile blood sugars family present pt verbalizes understanding Physical Exam (OB) Vital Signs: Temp Pulse Resp BP Pulse Ox 98.1 F 83 16 119/74 99 03/30/16 08:04 03/30/16 08:04 03/30/16 08:04 03/30/16 08:04 03/30/16 08:04 Intake & Output 03/29/16 03/30/16 03/31/16 06:59 06:59 06:59 Weight 126.35 kg - Lochia Lochia Amount: Small 10-25 ml Lochia Color: Rubra/Red - Abdomen Description: Soft, Round Fundal Description: Firm, Midline Fundal Height: u/u - u/2 Objective-Diagnostic Laboratory: 03/30/16 07:09 03/30/16 07:09 WBC 21.3 H RBC 3.75 Hgb 11.8 L Hct 34.3 L MCV 91 MCH 31.3 MCHC 34.3 RDW 13.7 Plt Count 171
[2016-03-30] MEDS ORDERED: INSULIN NPH (ISOPHANE), HUMAN 100 UNIT/ML 3 ML SUBCUT SCH (16:00)
--- NOTE | 2016-03-30 18:01 | L&D Current Admission ---
Current Admit Datetime Report Generated by CPN: 03/30/2016 18:00 ADMISSION INFORMATION Current Admit Date/Time: 03/29/2016 06:35 (02/24/2016 13:00:Valencia Guthrie RN) Reason for Admission: Induction of Labor (02/24/2016 13:00:Valencia Guthrie RN) Chief Complaint: Suspected Rupture of Membranes (02/24/2016 13:00:Maryuri Joyce RN) Medications During : Insulin; Oral Antihyperglycemics; Vitamin; Acetaminophen (Tylenol); Rantidine (Zantac) (02/24/2016 13:00:Valencia Guthrie RN) EGA per Dates: 38.4 (02/24/2016 13:00:QS system process) EGA per US: 38.4 (02/24/2016 13:00:QS system process) Method of Arrival: Ambulatory (02/24/2016 13:00:Valencia Guthrie RN) Admitted From: Home (02/24/2016 13:00:Valencia Guthrie RN) Reason for Induction: Maternal Diabetes (02/24/2016 13:00:Valencia Guthrie RN) Records Available: Yes (02/24/2016 13:00:Valencia Guthrie RN) General Admission Information: Reviewed (02/24/2016 13:00:Valencia Guthrie RN) General Admission Reviewed By: GRISEL Guthrie (02/24/2016 13:00:Valencia Guthrie RN) BELONGINGS/ADVANCED DIRECTIVES Other Belongings: see belongings consent (02/24/2016 13:00:Valencia Guthrie RN) Disposition of Belongings: Kept with Patient (02/24/2016 13:00:Valencia Guthrie RN) Advance Direct for Healthcare: No, and Wants No Information (02/24/2016 13:00:Valencia Guthrie RN) Durable Power of Handstitching Machine Collar Feller: No (02/24/2016 13:00:Valencia Guthrie RN) Living Will: No (02/24/2016 13:00:Valencia Guthrie RN) Organ Donor: Yes (02/24/2016 13:00:Valencia Guthrie RN) Pt Rights Information Given: Yes (02/24/2016 13:00:Valencia Guthrie RN) Pt Understands Pt Rights: Yes (02/24/2016 13:00:Valencia Guthrie RN) Patient Rights Comments: Give in patient access (02/24/2016 13:00:Valencia Guthrie RN) LEARNING ASSESSMENT Knowledge Level: Understands L_D Process; Understands Care Activities; Had Pre-Hospital Education; Understands Diagnosis (02/24/2016 13:00:Valencia Guthrie RN) Barriers to Learning: None (02/24/2016 13:00:Valencia Guthrie RN) Learning Readiness: Motivated (02/24/2016 13:00:Valencia Guthrie RN) Learns Best By: 1 to 1 Instruction; Reading; Videos; Group Discussion; Demonstration (02/24/2016 13:00:Valencia Guthrie RN) Learning Needs: Labor and Delivery Process; Pain Management; Symptoms to Report; Treatment Plan; Medication; Diagnosis; Nutrition; Equipment; Care; Community Resources (02/24/2016 13:00:Valencia Guthrie RN) DOMESTIC VIOLANCE SCREENING Dom Viol Threatened/Hurt: No (02/24/2016 13:00:Valencia Guthrie RN) Hx of Abuse/Neglect past 2yrs: No (02/24/2016 13:00:Valencia Guthrie RN) Feel Unsafe Going Home: No (02/24/2016 13:00:Valencia Guthrie RN) Addt'l Observ Indicating Abuse: No (02/24/2016 13:00:Valencia Guthrie RN) Reason Unable to Complete Screen: N/A, Screen Completed (02/24/2016 13:00:Valencia Guthrie RN) Considered Personal Harm/Suicide: No (02/24/2016 13:00:Valencia Guthrie RN) NUTRITIONAL/FUNCTIONAL SCREENING Problem with Appetite >5 Days: No (02/24/2016 13:00:Valencia Guthrie RN) Chew/Swallow Difficulties: No (02/24/2016 13:00:Valencia Guthrie RN) Inappropriate Wt Gain/Loss: No (02/24/2016 13:00:Valencia Guthrie RN) Presence Skin Breakdown/Ulcer: No (02/24/2016 13:00:Valencia Guthrie RN) Special Diet: No (02/24/2016 13:00:Valencia Guthrie RN) Pt Requests Public Address System Operator Visit: No (02/24/2016 13:00:Valencia Guthrie RN) Hx of Any of the Following?: Diabetes (02/24/2016 13:00:Valencia Guthrie RN) New Diagnosis of: N/A (02/24/2016 13:00:Valencia Guthrie RN) Requires Assist w/Ambulation: No (02/24/2016 13:00:Valencia Guthrie RN) Uses Assist Device to Ambulate: No (02/24/2016 13:00:Valencia Guthrie RN) Pt Requires Help w/ADL's: No (02/24/2016 13:00:Valencia Guthrie RN)
--- NOTE | 2016-03-30 18:01 | L&D General Admission ---
General Admit Datetime Report Generated by CPN: 03/30/2016 18:00 INFORMATION Patient Age: 30 (11/23/2015 11:41:QS system process) EDC: 04/08/2016 00:00 (11/23/2015 11:47:Maryuri Mendez RN) EDC per Ultrasound: 04/08/2016 00:00 (11/23/2015 11:47:Maryuri Mendez RN) LMP: 06/28/2015 00:00 (11/23/2015 11:47:Maryuri Mendez RN) : 2 (11/23/2015 11:47:Maryuri Mendez RN) Para: 1 (11/23/2015 11:47:Maryuri Mendez RN) Term: 1 (11/23/2015 11:47:Maryuri Mendez RN) : 0 (11/23/2015 11:47:Maryuri Mendez RN) Spontaneous Abortions: 0 (11/23/2015 11:47:Maryuir Mendez RN) Induced Abortions: 0 (11/23/2015 11:47:Maryuri Mendez RN) Livin (11/23/2015 11:47:Maryuri Mendez RN) Cesareans: 0 (11/23/2015 11:47:Maryuri Mendez RN) VBACs: 0 (11/23/2015 11:47:Maryuri Mendez RN) Ectopic: 0 (11/23/2015 11:47:Maryuri Mendez RN) Multiple Births: 0 (11/23/2015 11:47:Maryuri Mendez RN) Baby, Number in Womb: 1 (02/24/2016 15:03:Maryuri Joyce RN) CARE Primary Manager Food Beverage: [facility] (11/23/2015 11:47:Maryuri Mendez RN) Month of 1st Visit: 08/2015 (11/23/2015 11:47:Maryuri Mendez RN) Adequate Care: No (11/23/2015 11:47:Maryuri Mendez RN) Prepregnancy Weight (lb): 247 (11/23/2015 11:47:Chely Carmen RN) Prepregnancy Weight (kg): 112.3 (11/23/2015 11:47:QS system process) Height (in): 66 (03/30/2016 10:52:QS system process) ALLERGIES Medication Allergy: No (11/23/2015 11:47:Maryuri Mendez RN) Medication Allergies: No Known Allergies (03/29/2016) (03/29/2016 06:12:QS system process) Latex Allergy: No Latex Allergies (11/23/2015 11:47:Maryuri Mendez RN) Food Allergies: None (11/23/2015 11:47:Maryuri Mendez RN) Environmental Allergies: None (11/23/2015 11:47:Maryuri Mendez RN) COMMUNICATION Primary Language: New Zealander (11/23/2015 11:47:Maryuri Mendez RN) Medical Tx Preferred Language: [place] Zealander (11/23/2015 11:47:Maryuri Mendez RN) [place]ander Communication Ability: Speaks [place]alander; Reads [place]alander (11/23/2015 11:47:Hansa Hou RN) Communication Barrier(s): None (11/23/2015 11:47:Hansa Hou RN) DEMOGRAPHICS Address: [address] [place] [id number] (03/29/2016 06:01:QS system process) Zipcode: [id number] (11/23/2015 11:41:QS system process) Home (11/23/2015 11:41:QS system process) Work (03/25/2016 12:38:QS system process) SSN: [id number] (11/23/2015 11:41:QS system process) Next of Kin Name: VIRAL PHIPPS (03/25/2016 12:38:QS system process) Next of Kin (03/25/2016 12:38:QS system process) Next of Kin Relationship: OR (11/23/2015 11:41:QS system process) Date of : 1985 (11/23/2015 11:41:QS system process) Marital Status: Single (11/23/2015 11:41:QS system process) Sex: Female (11/23/2015 11:41:QS system process) Race: (11/23/2015 11:41:QS system process) Ethnicity: Non- or (11/23/2015 11:41:QS system process) Gnosticist: Other (11/23/2015 11:41:QS system process) DRUG AND ALCOHOL USE Alcohol: No (11/23/2015 11:47:Valencia Guthrie RN) Cigarettes: Former Smoker. [id number] (11/23/2015 11:47:Valencia Guthrie RN) Marijuana: Yes (11/23/2015 11:47:Diane Iraheta RN) Marijuana Comments: early in (11/23/2015 11:47:Diane Iraheta RN) Cocaine: No (11/23/2015 11:47:Valencia Guthrie RN) Other Illicit Drugs: No (11/23/2015 11:47:Valencia Guthrie RN) VACCINE HISTORY Influenza Vaccine: No (11/23/2015 11:47:Valencia Guthrie RN) Pneumococcal Vaccine: No (11/23/2015 11:47:Valencia Guthrie RN) Tetanus Vaccine: Yes (11/23/2015 11:47:Valencia Guthrie RN) Tetanus Date: 2013 (11/23/2015 11:47:Valencia Guthrie RN) Tdap Vaccine: Yes (11/23/2015 11:47:Valencia Guthrie RN) Tdap Date: 2016 (11/23/2015 11:47:Valencia Guthrie RN) Hepatitis B Vaccine: No (11/23/2015 11:47:Valencia Guthrie RN) Health Aid: [facility] (11/23/2015 11:47:Valencia Guthrie RN) Feeding Preference: Both (11/23/2015 11:47:Valencia Guthrie RN) Benefit of Breast Feed Discussed: Yes (11/23/2015 11:47:Valencia Guthrie RN) Circumcision: N/A (11/23/2015 11:47:Valencia Guthrie RN) Classes Attended: No (11/23/2015 11:47:Valencia Guthrie RN) Tubal Ligation: No (11/23/2015 11:47:Valencia Guthrie RN) Tubal Authorization Signed: N/A (11/23/2015 11:47:Valencia Guthrie RN) Consent: N/A (11/23/2015 11:47:Valencia Guthrie RN) Consent Signed: N/A (11/23/2015 11:47:Valencia Guthrie RN) Pain Management Plans: Epidural (11/23/2015 11:47:Valencia Guthrie RN) Plans for Labor and Delivery: None (11/23/2015 11:47:Valencia Guthrie RN) Support Person: Roe (11/23/2015 11:47:Valencia Guthrie RN) Support Person Relationship: Significant Other (11/23/2015 11:47:Valencia Guthrie RN) Cultural/Spritual Practice: No (11/23/2015 11:47:Valencia Guthrie RN) Spir/Cult Dietary Needs: No (11/23/2015 11:47:Valencia Guthrie RN) LIVING SITUATION/DISCHARGE PLAN Living Arrangements: House (11/23/2015 11:47:Valencia Guthrie RN) Adequate Access to:: Electric; Heat; Refrigeration; Plumbing/Running water; Phone; Transportation (11/23/2015 11:47:Valencia Guthrie RN) WIC Program: Yes (11/23/2015 11:47:Valencia Guthrie RN) Discharge Quality Control Engineering Technician Person: Roe (11/23/2015 11:47:Valencia Guthrie RN) Person to Help after Discharge: Margueriteatin (11/23/2015 11:47:Valencia Guthrie RN) Currently Using Commun Resources: Yes (11/23/2015 11:47:Valencia Guthrie RN) Specify Current Resource Used: medicaid (11/23/2015 11:47:Valencia Guthrie RN) Outside Agency/Trauma Director: No (11/23/2015 11:47:Valencia Guthrie RN) Car Seat for Discharge: Yes (11/23/2015 11:47:Valencia Guthrie RN) Adoption Requested: No (11/23/2015 11:47:Valencia Guthrie RN) Pt Contact w/infant Post : N/A (11/23/2015 11:47:Valencia Guthrie RN) LABS Blood Type: O Negative (11/23/2015 11:47:Valencia Guthrie RN) Antibody Screen: Negative (11/23/2015 11:47:Chely Carmen RN) Rho(G) this : Yes (11/23/2015 11:47:Myrtle Nunez RN) Date Rho(G) Given: 01/13/2016 (11/23/2015 11:47:Myrtle Nunez RN) Hemoglobin: 11.8 L (03/30/2016 07:09:QS system process) Hematocrit: 34.3 L (03/30/2016 07:09:QS system process) MCV: 91 (03/30/2016 07:09:QS system process) Group Beta Strep: Positive (11/23/2015 11:47:Chely Carmen RN) Gonorrhea: Negative (11/23/2015 11:47:Chely Carmen RN) Chlamydia: Negative (11/23/2015 11:47:Chely Carmen RN) RPR/VDRL: Nonreactive (11/23/2015 11:47:Chely Carmen RN) Hepatitis B: Negative (11/23/2015 11:47:Chely Carmen RN) Rubella: Immune (11/23/2015 11:47:Chely Carmen RN) HgB A1c: 6.7 H (11/23/2015 13:12:QS system process) OB/PREVIOUS HISTORY LMP: 06/28/2015 00:00 (11/23/2015 11:47:Maryuri Mendez RN) Current Procedures: Ultrasound; NST (11/23/2015 11:47:Chely Carmen RN) History of Previous : No (11/23/2015 11:47:Chely Carmen RN) History of Gestational Diabetes: No (11/23/2015 11:47:Chely Carmen RN) History of PIH: No (11/23/2015 11:47:Chely Carmen RN) History of Incompetent Cervix: No (11/23/2015 11:47:Chely Carmen RN) History of Placenta Previa/Abrup: No (11/23/2015 11:47:Chely Carmen RN) History of Macrosomia: No (11/23/2015 11:47:Chely Carmen RN) History of IUGR: No (11/23/2015 11:47:Chely Carmen RN) History of Hemorrhage: No (11/23/2015 11:47:Chely Carmen RN) History of Loss/Stillborn: No (11/23/2015 11:47:Chely Carmen RN) History of : No (11/23/2015 11:47:Chely Carmen RN) History of D (Rh) Sensitization: No (11/23/2015 11:47:Chely Carmen RN) History Recurrent Loss/Stillborn: No (11/23/2015 11:47:Chely Carmen RN) History Depression/PP Depression: No (11/23/2015 11:47:Chely Carmen RN) History of Uterine Anomaly/BIRDIE: No (11/23/2015 11:47:Chely Carmen RN) History of Infertility: No (11/23/2015 11:47:Chely Carmen RN) History of ART Treatment: No (11/23/2015 11:47:Chely Carmen RN) History of BIRDIE: No (11/23/2015 11:47:Chely Carmen RN) Comments Obstetrical History: GDM this 2004 (11/23/2015 11:47:Chely Carmen RN) MEDICAL HISTORY Med Hx Diabetes: Yes (11/23/2015 11:47:Chely Carmen RN) Diabetes Type: Type II - NIDDM (11/23/2015 11:47:Chely Carmen RN) Med Hx Hypertension: No (11/23/2015 11:47:Chely Carmen RN) Med Hx Heart Disease: No (11/23/2015 11:47:Chely Carmen RN) Med Hx Autoimmune Disorder: No (11/23/2015 11:47:Chely Carmen RN) Med Hx Kidney Disease/UTI: No (11/23/2015 11:47:Chely Carmen RN) Med Hx Neurologic/Epilepsy: No (11/23/2015 11:47:Chely Carmen RN) Med Hx Psychiatric Disorders: No (11/23/2015 11:47:Chely Carmen RN) Med Hx Hepatitis/Liver Disease: No (11/23/2015 11:47:Chely Carmen RN) Med Hx Varicosities/Phlebitis: No (11/23/2015 11:47:Chely Carmen RN) Med Hx Thyroid Dysfunction: No (11/23/2015 11:47:Chely Carmen RN) Med Hx Trauma/Violence: No (11/23/2015 11:47:Chely Carmen RN) Med Hx Blood Transfusion: No (11/23/2015 11:47:Chely Carmen RN) Med Hx Pulmonary (Asthma,TB): No (11/23/2015 11:47:Chely Cramen RN) Med Hx Breast: No (11/23/2015 11:47:Chely Carmen RN) Med Hx DISABILITY HEARING OFFICER Surgery: No (11/23/2015 11:47:Chely Carmen RN) Med Hx Hospitalization/Surgery: Yes (11/23/2015 11:47:Valencia Guthrie RN) Med Hx Anesthetic Complications: No (11/23/2015 11:47:Chely Carmen RN) Med Hx Abnormal Pap Smear: Yes (11/23/2015 11:47:Valencia Guthrie RN) Other Medical Diseases: No (11/23/2015 11:47:Chely Carmen RN) Med Hx Significant Family Hx: No (11/23/2015 11:47:Chely Carmen RN) Details of Med/Surg Hx: PCOS, Obesity, childbirth x1, infertility, marijuana use, previous smoker, Type 2 diabetes x 2 years noncompliant with medications, ASCUS on pap (11/23/2015 11:47:Valencia Guthrie RN) INFECTIOUS HISTORY Inf Hx Gonorrhea: No (11/23/2015 11:47:Chely Carmen RN) Inf Hx Chlamydia: Yes (11/23/2015 11:47:Valencia Guthrie RN) Inf Hx Syphilis: No (11/23/2015 11:47:Chely Carmen RN) Inf Hx HIV/AIDS: No (11/23/2015 11:47:Chely Carmen RN) Inf Hx Human Papilloma Virus: No (11/23/2015 11:47:Chely Carmen RN) Inf Hx Pt/Partner Genital Herpes: No (11/23/2015 11:47:Chely Carmen RN) Inf Hx Tuberculosis/Exposure: No (11/23/2015 11:47:Chely Carmen RN) Inf Hx Hepatitis B,C: No (11/23/2015 11:47:Chely Carmen RN) Inf Hx Rash or Viral Illness: No (11/23/2015 11:47:hCely Carmen RN) Details of Infectious Hx: chlmaydia 2004 (11/23/2015 11:47:Valencia Guthrie RN) GENETIC HISTORY Gen Hx Age >=35 at SHAHIDA: No (11/23/2015 11:47:Chely Carmen RN) Gen Hx Thalassemia: No (11/23/2015 11:47:Chely Carmen RN) Gen Hx Congenital Heart Defect: No (11/23/2015 11:47:Chely Carmen RN) Gen Hx Neural Tube Defect: No (11/23/2015 11:47:Chely Carmen RN) Gen Hx Down's Syndrome: No (11/23/2015 11:47:Chely Carmen RN) Gen Hx Rios-Sachs: No (11/23/2015 11:47:Chely Carmen RN) Gen Hx Trevor: No (11/23/2015 11:47:Chely Carmen RN) Gen Hx Familial Dysautonomia: No (11/23/2015 11:47:Chely Carmen RN) Gen Hx Sickle Cell Disease/Trait: No (11/23/2015 11:47:Chely Carmen RN) Gen Hx Hemophilia/Blood Disorder: No (11/23/2015 11:47:Chely Carmen RN) Gen Hx Muscular Dystrophy: No (11/23/2015 11:47:Chely Carmen RN) Gen Hx Cystic Fibrosis: No (11/23/2015 11:47:Chely Carmen RN) Gen Hx Huntingtons Chorea: No (11/23/2015 11:47:Chely Carmen RN) Gen Hx Mental Retardation/Autism: No (11/23/2015 11:47:Chely Carmen RN) Gen Hx Tested for Fragile X: No (11/23/2015 11:47:Chely Carmen RN) Gen Hx Other Inher/Chromosomal: No (11/23/2015 11:47:Chely Carmen RN) Gen Hx Maternal Metabolic DO: No (11/23/2015 11:47:Chely Carmen RN) Gen Hx Pt Father or FOB Defect: No (11/23/2015 11:47:Chely Carmen RN) Gen Hx Other Genetic History: No (11/23/2015 11:47:Chely Carmen RN) Gen Hx Drugs/Meds since LMP: No (11/23/2015 11:47:Chely Carmen RN)
--- NOTE | 2016-03-30 18:16 | L&D Flow Sheet ---
LD Flowsheet Datetime Report Generated by CPN: 03/30/2016 18:15 Datetime: 03/30/2016 14:17 Bedside Blood Glucose: 223 H (QS system process) Datetime: 03/30/2016 09:21 Bedside Blood Glucose: 190 H (Annotations: Treated Per Protocol) (QS system process) Datetime: 03/30/2016 06:33 Bedside Blood Glucose: 121 H (QS system process)
--- NOTE | 2016-03-31 06:01 | L&D General Admission ---
General Admit Datetime Report Generated by CPN: 03/31/2016 06:00 INFORMATION Patient Age: 30 (11/23/2015 11:41:QS system process) EDC: 04/08/2016 00:00 (11/23/2015 11:47:Maryuri Mendez RN) EDC per Ultrasound: 04/08/2016 00:00 (11/23/2015 11:47:Maryuri Mendez RN) LMP: 06/28/2015 00:00 (11/23/2015 11:47:Maryuri Mendez RN) : 2 (11/23/2015 11:47:Maryuri Mendez RN) Para: 1 (11/23/2015 11:47:Maryuri Mendez RN) Term: 1 (11/23/2015 11:47:Maryuri Mendez RN) : 0 (11/23/2015 11:47:Maryuri Mendez RN) Spontaneous Abortions: 0 (11/23/2015 11:47:Maryuri Mendez RN) Induced Abortions: 0 (11/23/2015 11:47:Maryuri Mendez RN) Livin (11/23/2015 11:47:Maryuri Mendez RN) Cesareans: 0 (11/23/2015 11:47:Maryuri Mendez RN) VBACs: 0 (11/23/2015 11:47:Maryuri Mendez RN) Ectopic: 0 (11/23/2015 11:47:Maryuri Mendez RN) Multiple Births: 0 (11/23/2015 11:47:Maryuri Mendez RN) Baby, Number in Womb: 1 (02/24/2016 15:03:Maryuri Joyce RN) CARE Primary Junior Buyer: [facility] (11/23/2015 11:47:Maryuri Mendez RN) Month of 1st Visit: 08/2015 (11/23/2015 11:47:Maryuri Mendez RN) Adequate Care: No (11/23/2015 11:47:Maryuri Mendez RN) Prepregnancy Weight (lb): 247 (11/23/2015 11:47:Chely Carmen RN) Prepregnancy Weight (kg): 112.3 (11/23/2015 11:47:QS system process) Height (in): 66 (03/30/2016 10:52:QS system process) ALLERGIES Medication Allergy: No (11/23/2015 11:47:Maryuri Mendez RN) Medication Allergies: No Known Allergies (03/29/2016) (03/29/2016 06:12:QS system process) Latex Allergy: No Latex Allergies (11/23/2015 11:47:Maryuri Mendez RN) Food Allergies: None (11/23/2015 11:47:Maryuri Mendez RN) Environmental Allergies: None (11/23/2015 11:47:Maryuri Mendez RN) COMMUNICATION Primary Language: Burmese (11/23/2015 11:47:Maryuri Mendez RN) Medical Tx Preferred Language: Burmese (11/23/2015 11:47:Maryuri Mendez RN) Burmese Communication Ability: Speaks Burmese; Reads Burmese (11/23/2015 11:47:Hansa Hou RN) Communication Barrier(s): None (11/23/2015 11:47:Hansa Hou RN) DEMOGRAPHICS Address: [address] [place] [id number] (03/29/2016 06:01:QS system process) Zipcode: [id number] (11/23/2015 11:41:QS system process) Home (11/23/2015 11:41:QS system process) Work (03/25/2016 12:38:QS system process) SSN: [id number] (11/23/2015 11:41:QS system process) Next of Kin Name: VIRAL PHIPPS (03/25/2016 12:38:QS system process) Next of Kin (03/25/2016 12:38:QS system process) Next of Kin Relationship: OR (11/23/2015 11:41:QS system process) Date of : 1985 (11/23/2015 11:41:QS system process) Marital Status: Single (11/23/2015 11:41:QS system process) Sex: Female (11/23/2015 11:41:QS system process) Race: (11/23/2015 11:41:QS system process) Ethnicity: Non- or (11/23/2015 11:41:QS system process) Restorationism: Other (11/23/2015 11:41:QS system process) DRUG AND ALCOHOL USE Alcohol: No (11/23/2015 11:47:Valencia Guthrie RN) Cigarettes: Former Smoker. [id number] (11/23/2015 11:47:Valencia Guthrie RN) Marijuana: Yes (11/23/2015 11:47:Diane Iraheta RN) Marijuana Comments: early in (11/23/2015 11:47:Diane Iraheta RN) Cocaine: No (11/23/2015 11:47:Valencia Guthrie RN) Other Illicit Drugs: No (11/23/2015 11:47:Valencia Guthrie RN) VACCINE HISTORY Influenza Vaccine: No (11/23/2015 11:47:Valencia Guthrie RN) Pneumococcal Vaccine: No (11/23/2015 11:47:Valencia Guthrie RN) Tetanus Vaccine: Yes (11/23/2015 11:47:Valencia Guthrie RN) Tetanus Date: 2013 (11/23/2015 11:47:Valencia Guthrie RN) Tdap Vaccine: Yes (11/23/2015 11:47:Valencia Guthrie RN) Tdap Date: 2016 (11/23/2015 11:47:Valencia Guthrie RN) Hepatitis B Vaccine: No (11/23/2015 11:47:Valencia Guthrie RN) Grain Elevator Operator: [facility] (11/23/2015 11:47:Valencia Guthrie RN) Feeding Preference: Both (11/23/2015 11:47:Valencia Guthrie RN) Benefit of Breast Feed Discussed: Yes (11/23/2015 11:47:Valencia Guthrie RN) Circumcision: N/A (11/23/2015 11:47:Valencia Guthrie RN) Classes Attended: No (11/23/2015 11:47:Valencia Guthrie RN) Tubal Ligation: No (11/23/2015 11:47:Valencia Guthrie RN) Tubal Authorization Signed: N/A (11/23/2015 11:47:Valencia Guthrie RN) Consent: N/A (11/23/2015 11:47:Valencia Guthrie RN) Consent Signed: N/A (11/23/2015 11:47:Valencia Guthrie RN) Pain Management Plans: Epidural (11/23/2015 11:47:Valencia Guthrie RN) Plans for Labor and Delivery: None (11/23/2015 11:47:Valencia Guthrie RN) Support Person: Roe (11/23/2015 11:47:Valencia Guthrie RN) Support Person Relationship: Significant Other (11/23/2015 11:47:Valencia Guthrie RN) Cultural/Spritual Practice: No (11/23/2015 11:47:Valencia Guthrie RN) Spir/Cult Dietary Needs: No (11/23/2015 11:47:Valencia Guthrie RN) LIVING SITUATION/DISCHARGE PLAN Living Arrangements: House (11/23/2015 11:47:Valencia Guthrie RN) Adequate Access to:: Electric; Heat; Refrigeration; Plumbing/Running water; Phone; Transportation (11/23/2015 11:47:Valencia Guthrie RN) WIC Program: Yes (11/23/2015 11:47:Valencia Guthrie RN) Discharge Field Account Manager Person: Roe (11/23/2015 11:47:Valencia Guthrie RN) Person to Help after Discharge: Margueriteatin (11/23/2015 11:47:Valencia Guthrie RN) Currently Using Commun Resources: Yes (11/23/2015 11:47:Valencia Guthrie RN) Specify Current Resource Used: medicaid (11/23/2015 11:47:Valencia Guthrie RN) Outside Agency/Review Consultant: No (11/23/2015 11:47:Valencia Guthrie RN) Car Seat for Discharge: Yes (11/23/2015 11:47:Valencia Guthrie RN) Adoption Requested: No (11/23/2015 11:47:Valencia Guthrie RN) Pt Contact w/infant Post : N/A (11/23/2015 11:47:Valencia Guthrie RN) LABS Blood Type: O Negative (11/23/2015 11:47:Valencia Guthrie RN) Antibody Screen: Negative (11/23/2015 11:47:Chely Carmen RN) Rho(G) this : Yes (11/23/2015 11:47:Myrtle Nunez RN) Date Rho(G) Given: 01/13/2016 (11/23/2015 11:47:Myrtle Nunez RN) Hemoglobin: 11.8 L (03/30/2016 07:09:QS system process) Hematocrit: 34.3 L (03/30/2016 07:09:QS system process) MCV: 91 (03/30/2016 07:09:QS system process) Group Beta Strep: Positive (11/23/2015 11:47:Chely Carmen RN) Gonorrhea: Negative (11/23/2015 11:47:Chely Carmen RN) Chlamydia: Negative (11/23/2015 11:47:Chely Carmen RN) RPR/VDRL: Nonreactive (11/23/2015 11:47:Chely Carmen RN) Hepatitis B: Negative (11/23/2015 11:47:Chely Carmen RN) Rubella: Immune (11/23/2015 11:47:Chely Carmen RN) HgB A1c: 6.7 H (11/23/2015 13:12:QS system process) OB/PREVIOUS HISTORY LMP: 06/28/2015 00:00 (11/23/2015 11:47:Maryuri Mendez RN) Current Procedures: Ultrasound; NST (11/23/2015 11:47:Chely Carmen RN) History of Previous : No (11/23/2015 11:47:Chely Carmen RN) History of Gestational Diabetes: No (11/23/2015 11:47:Chely Carmen RN) History of PIH: No (11/23/2015 11:47:Chely Carmen RN) History of Incompetent Cervix: No (11/23/2015 11:47:Chely Carmen RN) History of Placenta Previa/Abrup: No (11/23/2015 11:47:Chely Carmen RN) History of Macrosomia: No (11/23/2015 11:47:Chely Carmen RN) History of IUGR: No (11/23/2015 11:47:Chely Carmen RN) History of Hemorrhage: No (11/23/2015 11:47:Chely Carmen RN) History of Loss/Stillborn: No (11/23/2015 11:47:Chely Carmen RN) History of : No (11/23/2015 11:47:Chely Carmen RN) History of D (Rh) Sensitization: No (11/23/2015 11:47:Chely Carmen RN) History Recurrent Loss/Stillborn: No (11/23/2015 11:47:Chely Carmen RN) History Depression/PP Depression: No (11/23/2015 11:47:Chely Carmen RN) History of Uterine Anomaly/BIRDIE: No (11/23/2015 11:47:Chely Carmen RN) History of Infertility: No (11/23/2015 11:47:Chely Carmen RN) History of ART Treatment: No (11/23/2015 11:47:Chely Carmen RN) History of BIRDIE: No (11/23/2015 11:47:Chely Carmen RN) Comments Obstetrical History: GDM this 2004 (11/23/2015 11:47:Chely Carmen RN) MEDICAL HISTORY Med Hx Diabetes: Yes (11/23/2015 11:47:Chely Carmen RN) Diabetes Type: Type II - NIDDM (11/23/2015 11:47:Chely Carmen RN) Med Hx Hypertension: No (11/23/2015 11:47:Chely Carmen RN) Med Hx Heart Disease: No (11/23/2015 11:47:Chely Carmen RN) Med Hx Autoimmune Disorder: No (11/23/2015 11:47:Chely Carmen RN) Med Hx Kidney Disease/UTI: No (11/23/2015 11:47:Chely Carmen RN) Med Hx Neurologic/Epilepsy: No (11/23/2015 11:47:Chely Carmen RN) Med Hx Psychiatric Disorders: No (11/23/2015 11:47:Chely Carmen RN) Med Hx Hepatitis/Liver Disease: No (11/23/2015 11:47:Chely Carmen RN) Med Hx Varicosities/Phlebitis: No (11/23/2015 11:47:Chely Carmen RN) Med Hx Thyroid Dysfunction: No (11/23/2015 11:47:Chely Carmen RN) Med Hx Trauma/Violence: No (11/23/2015 11:47:Chely Carmen RN) Med Hx Blood Transfusion: No (11/23/2015 11:47:Chely Carmen RN) Med Hx Pulmonary (Asthma,TB): No (11/23/2015 11:47:Chely Carmen RN) Med Hx Breast: No (11/23/2015 11:47:Chely Carmen RN) Med Hx PRODUCT ACCOUNTANT Surgery: No (11/23/2015 11:47:Chely Carmen RN) Med Hx Hospitalization/Surgery: Yes (11/23/2015 11:47:Valencia Guthrie RN) Med Hx Anesthetic Complications: No (11/23/2015 11:47:Chely Carmen RN) Med Hx Abnormal Pap Smear: Yes (11/23/2015 11:47:Valencia Guthrie RN) Other Medical Diseases: No (11/23/2015 11:47:Chely Carmen RN) Med Hx Significant Family Hx: No (11/23/2015 11:47:Chely Carmen RN) Details of Med/Surg Hx: PCOS, Obesity, childbirth x1, infertility, marijuana use, previous smoker, Type 2 diabetes x 2 years noncompliant with medications, ASCUS on pap (11/23/2015 11:47:Valencia Guthrie RN) INFECTIOUS HISTORY Inf Hx Gonorrhea: No (11/23/2015 11:47:Chely Carmen RN) Inf Hx Chlamydia: Yes (11/23/2015 11:47:Valencia Guthrie RN) Inf Hx Syphilis: No (11/23/2015 11:47:Chely Carmen RN) Inf Hx HIV/AIDS: No (11/23/2015 11:47:Chely Carmen RN) Inf Hx Human Papilloma Virus: No (11/23/2015 11:47:Chely Carmen RN) Inf Hx Pt/Partner Genital Herpes: No (11/23/2015 11:47:Chely Carmen RN) Inf Hx Tuberculosis/Exposure: No (11/23/2015 11:47:Chely Carmen RN) Inf Hx Hepatitis B,C: No (11/23/2015 11:47:Chely Carmen RN) Inf Hx Rash or Viral Illness: No (11/23/2015 11:47:Chely Carmen RN) Details of Infectious Hx: chlmaydia 2004 (11/23/2015 11:47:Valencia Guthrie RN) GENETIC HISTORY Gen Hx Age >=35 at [facility]: No (11/23/2015 11:47:Chely Carmen RN) Gen Hx Thalassemia: No (11/23/2015 11:47:Chely Carmen RN) Gen Hx Congenital Heart Defect: No (11/23/2015 11:47:Chely Carmen RN) Gen Hx Neural Tube Defect: No (11/23/2015 11:47:Chely Carmen RN) Gen Hx Down's Syndrome: No (11/23/2015 11:47:Chely Carmen RN) Gen Hx Iros-Sachs: No (11/23/2015 11:47:Chely Carmen RN) Gen Hx Trevor: No (11/23/2015 11:47:Chely Carmen RN) Gen Hx Familial Dysautonomia: No (11/23/2015 11:47:Chely Carmen RN) Gen Hx Sickle Cell Disease/Trait: No (11/23/2015 11:47:Chely Carmen RN) Gen Hx Hemophilia/Blood Disorder: No (11/23/2015 11:47:Chely Carmen RN) Gen Hx Muscular Dystrophy: No (11/23/2015 11:47:Chely Carmen RN) Gen Hx Cystic Fibrosis: No (11/23/2015 11:47:Chely Carmen RN) Gen Hx Huntingtons Chorea: No (11/23/2015 11:47:Chely Carmen RN) Gen Hx Mental Retardation/Autism: No (11/23/2015 11:47:Chely Carmen RN) Gen Hx Tested for Fragile X: No (11/23/2015 11:47:Chely Carmen RN) Gen Hx Other Inher/Chromosomal: No (11/23/2015 11:47:Chely Carmen RN) Gen Hx Maternal Metabolic DO: No (11/23/2015 11:47:Chely Carmen RN) Gen Hx Pt Father or FOB Defect: No (11/23/2015 11:47:Chely Carmen RN) Gen Hx Other Genetic History: No (11/23/2015 11:47:Chely Carmen RN) Gen Hx Drugs/Meds since LMP: No (11/23/2015 11:47:Chely Carmen RN)
--- NOTE | 2016-03-31 06:01 | L&D Current Admission ---
Current Admit Datetime Report Generated by CPN: 03/31/2016 06:00 ADMISSION INFORMATION Current Admit Date/Time: 03/29/2016 06:35 (02/24/2016 13:00:Valencia Guthrie RN) Reason for Admission: Induction of Labor (02/24/2016 13:00:Valencia Guthrie RN) Chief Complaint: Suspected Rupture of Membranes (02/24/2016 13:00:Maryuri Joyce RN) Medications During : Insulin; Oral Antihyperglycemics; Vitamin; Acetaminophen (Tylenol); Rantidine (Zantac) (02/24/2016 13:00:Valencia Guthrie RN) EGA per Dates: 38.4 (02/24/2016 13:00:QS system process) EGA per US: 38.4 (02/24/2016 13:00:QS system process) Method of Arrival: Ambulatory (02/24/2016 13:00:Valencia Guthrie RN) Admitted From: Home (02/24/2016 13:00:Valencia Guthrie RN) Reason for Induction: Maternal Diabetes (02/24/2016 13:00:Valencia Guthrie RN) Records Available: Yes (02/24/2016 13:00:Valencia Guthrie RN) General Admission Information: Reviewed (02/24/2016 13:00:Valencia Guthrie RN) General Admission Reviewed By: GRISEL Guthrie (02/24/2016 13:00:Valencia Guthrie RN) BELONGINGS/ADVANCED DIRECTIVES Other Belongings: see belongings consent (02/24/2016 13:00:Valencia Guthrie RN) Disposition of Belongings: Kept with Patient (02/24/2016 13:00:Valencia Guthrie RN) Advance Direct for Healthcare: No, and Wants No Information (02/24/2016 13:00:Valencia Guthrie RN) Durable Power of Merchandise Handler: No (02/24/2016 13:00:Valencia Guthrie RN) Living Will: No (02/24/2016 13:00:Valencia Guthrie RN) Organ Donor: Yes (02/24/2016 13:00:Valencia Guthrie RN) Pt Rights Information Given: Yes (02/24/2016 13:00:Valencia Guthrie RN) Pt Understands Pt Rights: Yes (02/24/2016 13:00:Valencia Guthrie RN) Patient Rights Comments: Give in patient access (02/24/2016 13:00:Valencia Guthrie RN) LEARNING ASSESSMENT Knowledge Level: Understands L_D Process; Understands Care Activities; Had Pre-Hospital Education; Understands Diagnosis (02/24/2016 13:00:Valencia Guthrie RN) Barriers to Learning: None (02/24/2016 13:00:Valencia Guthrie RN) Learning Readiness: Motivated (02/24/2016 13:00:Valencia Guthrie RN) Learns Best By: 1 to 1 Instruction; Reading; Videos; Group Discussion; Demonstration (02/24/2016 13:00:Valencia Guthrie RN) Learning Needs: Labor and Delivery Process; Pain Management; Symptoms to Report; Treatment Plan; Medication; Diagnosis; Nutrition; Equipment; Care; Community Resources (02/24/2016 13:00:Valencia Guthrie RN) DOMESTIC VIOLANCE SCREENING Dom Viol Threatened/Hurt: No (02/24/2016 13:00:Valencia Guthrie RN) Hx of Abuse/Neglect past 2yrs: No (02/24/2016 13:00:Valencia Guthrie RN) Feel Unsafe Going Home: No (02/24/2016 13:00:Valencia Guthrie RN) Addt'l Observ Indicating Abuse: No (02/24/2016 13:00:Valencia Guthrie RN) Reason Unable to Complete Screen: N/A, Screen Completed (02/24/2016 13:00:Valencia Guthrie RN) Considered Personal Harm/Suicide: No (02/24/2016 13:00:Valencia Guthrie RN) NUTRITIONAL/FUNCTIONAL SCREENING Problem with Appetite >5 Days: No (02/24/2016 13:00:Valencia Guthrie RN) Chew/Swallow Difficulties: No (02/24/2016 13:00:Valencia Guthrie RN) Inappropriate Wt Gain/Loss: No (02/24/2016 13:00:Valencia Guthrie RN) Presence Skin Breakdown/Ulcer: No (02/24/2016 13:00:Valencia Guthrie RN) Special Diet: No (02/24/2016 13:00:Valencia Guthrie RN) Pt Requests Intelligence Applications Visit: No (02/24/2016 13:00:Valencia Guthrie RN) Hx of Any of the Following?: Diabetes (02/24/2016 13:00:Valencia Guthrie RN) New Diagnosis of: N/A (02/24/2016 13:00:Valencia Guthrie RN) Requires Assist w/Ambulation: No (02/24/2016 13:00:Valencia Guthrie RN) Uses Assist Device to Ambulate: No (02/24/2016 13:00:Valencia Guthrie RN) Pt Requires Help w/ADL's: No (02/24/2016 13:00:Valencia Guthrie RN)
[2016-03-31] MEDS: IBUPROFEN 800 MG TABLET PO SCH ×3 (06:07→18:04)
--- NOTE | 2016-03-31 06:16 | L&D Flow Sheet ---
LD Flowsheet Datetime Report Generated by CPN: 03/31/2016 06:15 Datetime: 03/30/2016 19:27 Bedside Blood Glucose: 184 H (QS system process)
--- NOTE | 2016-03-31 06:16 | L&D Care Plan ---
LD CARE PLANS Datetime Report Generated by CPPina: 03/31/2016 06:15 Datetime: 03/29/2016 03:09 State: Risk For (Valencia Guthrie RN) Related To: Labor and Delivery Process; Surgical Procedure; Complication(s) of ; Disease Process; Treatment and Procedures; Post (Valencia Guthrie RN) Goal(s): Patients Pain will be Assessed and Managed; Patient will Verbalize Adequate Relief of Pain or the Ability to [place] with Current Pain (Valencia Guthrie RN) Interventions: Assess Pain Severity on Scale of 0 (None) to 5 (Severe); Assess Type, Location and Intensity of Pain Each Time Client Reports Discomfort and Notify Provider if Unusal Pain Develops; Encourage Proper Breathing and Relaxation Techniques; Offer Alternatives Such as Repositioning, Calm Environment, Massages, Diversional Activities, Ice Pack, Splinting, and Ambulation; Administer Analgesics as Ordered; Assist with Epidural Placement as Appropriate; Evaluate Therapeutic Effectiveness of Medication and Treatments (Valencia Guthrie RN) Outcome: Patient will Report Absence or Relief of Pain Consistent with Established Pain Goal (Valencia Guthrie RN) Status: Ongoing (Valencia Guthrie RN) Outcome: Patient will have a Decrease in Signs and Symptoms of Discomfort (Valencia Guthrie RN) Status: Ongoing (Valencia Guthrie RN) Outcome: Pain will be Controlled During Procedures (Valencia Guthrie RN) Status: Ongoing (Valencia Guthrie RN) State: Risk For (Valencia Guthrie RN) Related To: Labor and Delivery Process; Surgical Procedure; Medical Interventions (Valencia Guthrie RN) Goal(s): Patient will have Decreased Anxiety and be able to Function at Acceptable Levels (Valencia Guthrie RN) Interventions: Assess Verbal and Nonverbal Behavioral Indicators of Anxiety; Assist Patient to Identify and Verbalize Symptoms of Anxiety; Identify and Demonstrate Techniques to Control Anxiety; Assist Patient with Coping Mechanisms to Manage Anxiety; Provide Theraputic Touch for the Patient; Explain to Patient, Using a Calm Reassuring Approach and Nonmedical Terms, All Activities, Procedures, and Concerns; Instruct Patient and Family about Post Discharge Care, Limitations, Symptoms to Report and Resources Available (Valencia Guthrie RN) Outcome: Patient will Identify, Verbalize and Demonstrate Techniques to Control Anxiety (Valencia Guthrie RN) Status: Ongoing (Valencia Guthrie RN) Outcome: Patient's Posture, Facial Expressions, Gestures and Activity Level will Reflect Decreased Anxiety (Valencia Guthrie RN) Status: Ongoing (Valencia Guthrie RN) Outcome: Patient will Verbalize a Sense of Control and/or Acceptance of the Situation (Valencia Guthrie RN) Status: Ongoing (Valencia Guthrie RN) Outcome: Patient will Identify and Utilize Support Person (Valencia Guthrie RN) Status: Ongoing (Valencia Guthrie RN) State: Risk For (Valencia Guthrie RN) Related To: Labor and Delivery Process; Surgical Procedures; Treatment and Procedures; Feeding and Care (Valencia Guthrie RN) Goal(s): Patient will Accurately Verbalize Understanding of Plan of Care and Treatment; Patient and Family will Accurately Verbalize Understanding of the Disease Process (Valencia Guthrie RN) Interventions: Assess Motivation and Willingness of Patient/Family to Learn; Assess Preferred Learning Mode: One to One Instruction, Reading, Videos, Group Discussion or Demonstration; Assess Barriers to Learning: Pain, Emotional State, Language Barrier, Cognitive Impairment, Visual or Hearing Deficits; Assess Patient and Family Knowledge of Disease Process, Medications and Treatment; Discuss Therapy and/or Treatment Options, Describe Rationale Behind Management, Therapy and Treatment Recommendations; Instruct Patient and Family on Signs and Symptoms to Report; Instruct Patient and Family on Medication Effects and Side Effects; Provide Appropriate and Timely Education Using Multiple Techniques; Provide Patient and Family with Support Group Information and Resources; Give Clear and Thorough Explanations and Demonstrations (Valencia Guthrie RN) Outcome: Patient and Family will Verbalize Understanding of Condition, Treatment and Signs and Symptoms to Report (Valencia Guthrie RN) Status: Ongoing (Valencia Guthrie RN) Outcome: Patient will Identify Perceived Learning Needs and Express Motivation to Learn (Valencia Guthrie RN) Status: Ongoing (Valencia Guthrie RN) Outcome: Patient will Verbalize Understanding of Desired Content, and/or Performs Desired Skill Prior to Discharge (Valencia Guthrie RN) Status: Ongoing (Valencia Guthrie RN) State: Risk For (Valencia Guthrie RN) Related To: Surgical Procedures; Prolonged Labor or Induction; Premature/Prolonged Rupture of Membranes; Invasive Procedures (Valencia Guthrie RN) Goal(s): The Patient will be Free of Infection, Vital Signs Stable and Lab Work within Normal Parameters (Valencia Guthrie RN) Interventions: Instruct and Reinforce Proper Handwashing, Hygiene, and Care Techniques to Patient and Family; Monitor Vital Signs; Monitor Patient for the Following Signs of Infection: Fever, Abdominal Tenderness, Unusual Discharge; Monitor Aminiotic Fluid, Urine and Lochia for Color and Odor; Observe Wounds, Incisions and Invasive Line Sites for Redness, Drainage and Edema; Assess IV Sites per Hospital Policy; Monitor Lab and Test Results and Notify Provider of Abnormal Findings; Assess Nutritional Status and Promote Good Nutrition (Valencia Guthrie RN) Outcome: Patient will Remain Free of Infection (Valencia Guthrie RN) Status: Ongoing (Valencia Guthrie RN) Outcome: Infection will be Recognized Early to Allow for Prompt Treatment (Valencia Guthrie RN) Status: Ongoing (Valencia Guthrie RN) Outcome: Patient will have Vital Signs Within Expected Range (Valencia Guthrie RN) Status: Ongoing (Valencia Guthrie RN) State: Risk For (Valencia Guthrie RN) Related To: Surgical Procedures; Prolonged Labor or Induction; Hemorrhage; Disease Process; Anesthesia (Valencia Guthrie RN) Goal(s): Patient will Achieve and Maintain a Balanced Fluid Volume Status; Hemodynamically Stable (Valencia Guthrie RN) Interventions: Monitor Vital Signs; Auscultate Breath Sounds; Monitor Patient for Skin Turgor, Mucous Membranes, Dry Skin, Weakness, Headaches and Confusion; Provide Oral Fluids as Ordered; Initiate and Maintain Intravenous Fluids as Ordered; Monitor Intake and Output as Indicated Per Patient Status; Accurately Measure Blood Loss; Monitor Lab and Test Results as Obtained and Notify Provider of Abnormal Findings; Monitor Patient's Weight (Valencia Guthrie RN) Outcome: Patient will have Clear Lung Sounds (Valencia Guthrie RN) Status: Ongoing (Valencia Guthrie RN) Outcome: Patient will have Vital Signs within Expected Range (Valencia Guthrie RN) Status: Ongoing (Valencia Guthrie RN) Outcome: Urine Output will be within Expected Range (Valencia Guthrie RN) Status: Ongoing (Valencia Guthrie RN) Outcome: Patient will have Minimal Generalized or Upper Extremity Edema (Valencia Guthrie RN) Status: Ongoing (Valencia Guthrie RN) State: Risk For (Valencia Guthrie RN) Related To: Labor and Delivery Process; Anesthesia; Risk to Status; Uteroplacental Perfusion; Hemorrhage, Placenta Previa and or Placental Abruption (Valencia Guthrie RN) Goal(s): Patient will Remain Free from Injury (Valencia Guthrie RN) Interventions: Monitoring as per Hospital Protocol; Assess Neurological Status; Perform Risk Assessment of Patients with Induction and ; Perform Fall Risk Assessment and Prevention per Hospital Protocol; Perform DVT Risk Assessment and Prophylaxis per Hospital Protocol; Ensure that Oxygen, Suction, and Resuscitation Medications and Equipment are Readily Available; Confirm Patient ID Prior to Procedure(s) and Medication Administration per Hospital Policy (Valencia Guthrie RN) Outcome: Successful Fall Risk Prevention (Valencia Guthrie RN) Status: Ongoing (Valencia Guthrie RN) Outcome: Patient will Deliver without Adverse [place] (Valencia Guthrie RN) Status: Ongoing (Valencia Guthrie RN) Outcome: Patient's Neurological Status will Remain Stable (Valencia Guthrie RN) Status: Ongoing (Valencia Guthrie RN) State: Risk For (Valencia Guthrie RN) Related To: Vaginal Delivery; Surgical Procedures; Invasive Procedures (Valencia Guthrie RN) Goal(s): Patient will Maintain Optimal Skin Integrity, Free of Breakdown, Injury or Infection (Valencia Guthrie RN) Interventions: Complete Screening for Pressure Ulcer Risk and Initiate Protocol per Hospital Policy; Monitor Site of Skin Impairment for Color Changes, Redness, Swelling, Warmth, Pain or Other Signs of Infection; Encourage and Assist with Position Changes; Monitor Patient's Mobility Status; Provide Adequate Nutrition and Fluids; Teach Patient Appropriate Hygienic Care; Teach Patient/Family Skin Care Management (Valencia Guthrie RN) Outcome: Patient will not have Evidence of Injury Such as Skin Breakdown, Scrapes, Cuts, or Bruising (Valencia Guthrie RN) Status: Ongoing (Valencia Guthrie RN) Outcome: Patient will Report Any Altered Sensation or Pain at Site of Skin Impairment (Valencia Guthrie RN) Status: Ongoing (Valencia Guthrie RN) Outcome: Patients Incisions and Wounds will be without Signs or Symptoms of Infection (Valencia Guthrie RN) Status: Ongoing (Valencia Guthrie RN) Outcome: Patient will Demonstrate Understanding of Plan to Heal Skin and Prevent Reinjury and Verbalize Risk Factors (Valencia Guthrie RN) Status: Ongoing (Valencia Guthrie RN) State: Risk For (Valencia Guthrie RN) Related To: Compromised Health Status; Apprehension Related to [place] Care (Valencia Guthrie RN) Goal(s): Parents will Demonstrate Progressive Parenting Behaviors (Valencia Guthrie RN) Interventions: Assess for Adequacy of Support Systems; Observe and Encourage Patient/Family Attachment and Bonding Activities and Provide Feedback; Assess Patient/Family Understanding of 's Condition and Provide Accurate Information About Condition, Treatment and Prognosis; Assess for Patient/Family Behaviors that May Indicate Lack of Attachment; Provide a Safe Non-judgmental Environment for Patient/Family to Discuss Concerns; Promote Patient/Family Cohesiveness by Encouraging Discussion and Problem Solving; Gift Consultant Referral as Indicated (Valencia Guthrie RN) Outcome: Patient/Family will Discuss Their Fears and the Possibility of Difficulties with Parenting (Valencia Guthrie RN) Status: Ongoing (Valencia Guthrie RN) Outcome: Patient/Family will Exhibit Appropriate Bonding Behaviors with (Valencia Guthrie RN) Status: Ongoing (Valencia Guthrie RN) Outcome: Patient/Family will Verbalize Positive Feelings and Demonstrate Affection and Caring Toward (Valencia Guthrie RN) Status: Ongoing (Valencia Guthrie RN) State: Risk For (Valencia Guthrie RN) Related To: ; ; Surgical Procedure (Valencia Guthrie RN) Goal(s): Patient will have an Intake of Nutrients Sufficient to Meet Metabolic Needs (Valencia Guthrie RN) Interventions: Nutritional Screening and Assessment per Hospital Policy; Consult Strategic Planning Consultant for Further Assessment and Recommendations Regarding Food Preferences and Nutritional Support; Allow Patient to Plan and Order Diet when Possible; Monitor Laboratory Values That Indicate Nutritional Well-being; Consult Deportation Officer for Nutritional Support Regarding Requirements; Document Actual Weight Initially and Weekly (Do Not Estimate); Encourage Patient Participation in Maintaining a Food Log as Indicated; Educate Patient on the Importance of Maintaining an Adequate Caloric Intake (Valencia Guthrie RN) Outcome: Patient will Receive Adequate Calories and Fluid Volume to Meet Metabolic Needs (Valencia Guthrie RN) Status: Ongoing (Valencia Guthrie RN) Outcome: Patient will Select Foods or Meals that Support Adequate Nutrition (Valencia Guthrie RN) Status: Ongoing (Valencia Guthrie RN) State: Not Applicable (Valencia Guthrie RN) State: Not Applicable (Valencia Guthrie RN)
[2016-03-31] MEDS: SENNOSIDES/DOCUSATE 8.6-50 MG 1 EACH TABLET PO SCH (09:25)
[2016-03-31] MEDS: FERROUS SULFATE 325 MG TABLET PO SCH ×2 (09:26→17:45)
[2016-03-31] MEDS: DOCUSATE SODIUM 100 MG CAPSULE PO SCH ×2 (09:26→17:45)
[2016-03-31] MEDS: INSULIN NPH (ISOPHANE), HUMAN 100 UNIT/ML 3 ML SUBCUT SCH (09:32)
[2016-03-31] MEDS: PRENATAL VITAMIN W-O CA NO5/FE FUMARATE/FA CAPSULE PO SCH (09:32)
[2016-03-31] MEDS: INSULIN REG, HUMAN 100 UNIT/ML 3 ML VIAL (PYX) SUBCUT SCH ×3 (09:32→17:47)
--- NOTE | 2016-03-31 10:57 | PDOC PROGRESS REPORT ---
Subjective-OB Subjective: Post Delivery Day: 31 year old. Denies any needs at this time Physical Exam (OB) Vital Signs: Temp Pulse Resp BP Pulse Ox 97.5 F 81 20 117/74 100 03/31/16 08:17 03/31/16 08:17 03/31/16 08:17 03/31/16 08:16 03/31/16 08:17 - Lochia Lochia Amount: Scant < 10 ml Lochia Color: Rubra/Red - Abdomen Description: Soft, Round Hernia Present: No Bowel Sounds: Normoactive Flatus Presence: Present Stool: No Fundal Description: Firm, Midline Fundal Height: u/u - u/2 Objective-Diagnostic Laboratory: 03/30/16 07:09
[2016-03-31] MEDS ORDERED: METFORMIN HCL 500 MG TABLET PO ONE (12:00)
[2016-03-31] MEDS: METFORMIN HCL 500 MG TABLET PO SCH (15:55)
[2016-04-01] MEDS: IBUPROFEN 800 MG TABLET PO SCH ×2 (02:08→09:46)
[2016-04-01] MEDS: INSULIN NPH (ISOPHANE), HUMAN 100 UNIT/ML 3 ML SUBCUT SCH (07:38)
[2016-04-01] MEDS: METFORMIN HCL 500 MG TABLET PO SCH (07:44)
[2016-04-01 08:33] VITALS: BP 123/82
[2016-04-01] MEDS: INSULIN REG, HUMAN 100 UNIT/ML 3 ML VIAL (PYX) SUBCUT SCH (08:50)
[2016-04-01] MEDS: DOCUSATE SODIUM 100 MG CAPSULE PO SCH (09:46)
[2016-04-01] MEDS: SENNOSIDES/DOCUSATE 8.6-50 MG 1 EACH TABLET PO SCH (09:46)
[2016-04-01] MEDS: PRENATAL VITAMIN W-O CA NO5/FE FUMARATE/FA CAPSULE PO SCH (09:46)
[2016-04-01] MEDS: FERROUS SULFATE 325 MG TABLET PO SCH (09:46)
[2016-04-01 09:49] LABS: ABSOLUTE BASOPHILS # (AUTO) 0.1 10^3/uL (0.0-0.2); ABSOLUTE EOSINOPHILS # (AUTO) 0.2 10^3/uL (0.0-0.6); ABSOLUTE LYMPHOCYTES (AUTO) 2.7 10^3/uL (0.5-4.7); ABSOLUTE MONOCYTES (AUTO) 0.9 10^3/uL (0.1-1.4); ABSOLUTE NEUT (AUTO) 7.7 10^3/uL (1.7-8.2); BASOPHILS % (AUTO) 0.8 % (0-2); EOSINOPHILS % (AUTO) 1.6 % (0-6); HEMATOCRIT 33.1 % (36.0-47.0); HEMOGLOBIN 11.2 g/dL (12.0-15.5); HGB HCT DIFFERENCE 0.5; LYMPHOCYTES % (AUTO) 23.2 % (13-45); MEAN CORPUSCULAR HEMOGLOBIN 31.2 pg (27.0-33.4); MEAN CORPUSCULAR HGB CONC 33.8 g/dL (32.0-36.0); MEAN CORPUSCULAR VOLUME 93 fl (80-97); MONOCYTES % (AUTO) 7.6 % (3-13); RED BLOOD COUNT 3.58 10^6/uL (3.72-5.28); RED CELL DISTRIBUTION WIDTH 13.3 % (11.5-14.0); SEGMENTED NEUTROPHILS % (AUTO) 66.8 % (42-78); WHITE BLOOD COUNT 11.6 10^3/uL (4.0-10.5)
--- NOTE | 2016-04-01 10:27 | PDOC DISCHARGE SUMMARY ---
Final Diagnosis Discharge Date: 04/01/16 - Final Diagnosis (1) Delivery normal Is this a current diagnosis for this admission?: Yes (2) Type 2 diabetes mellitus Is this a current diagnosis for this admission?: Yes Discharge Data - Discharge Medication Home Medications: Insulin Aspart [Novolog Flexpen] 10 units SQ BID 02/24/16 Insulin Regular, Human [Novolin R (Reg) Insulin 100 unit/mL] 6 unit SUBCUT ACSUPPER 02/24/16 Vit #76/Iron,Carb/FA [Pnv 29-1 Tablet] 1 tab PO DAILY 03/29/16 Reason(s) for Admission: Induction of Labor Procedures: NST Intrapartum Procedure(s): Spontaneous Vaginal Delivery Intrapartum Procedure Note: shoulder dystocia - Diagnosis Test Laboratory: Temp Pulse Resp BP Pulse Ox 98.2 F 81 18 123/82 100 04/01/16 08:03 04/01/16 08:03 04/01/16 08:03 04/01/16 08:03 04/01/16 08:03 03/29/16 03/29/16 03/30/16 06:10 06:50 07:09 RBC 4.27 3.75 Hgb 13.2 11.8 L Hct 39.6 34.3 L Urine Opiates Screen NEGATIVE 04/01/16 09:40 RBC 3.58 L Hgb 11.2 L Hct 33.1 L Urine Opiates Screen - Discharge information/Instructions Discharge Activity: Activity As Tolerated, Pelvic Rest, No tub bath Discharge Diet: Regular Disposition: HOME, SELF-CARE Follow up with: [facility] in: 1, Weeks
== END 2016-04-01 11:38 | disposition home or self-care (01) | DRG 774 ==
LOC: LR 05:58 → 2S 03-30 02:19
PROVIDERS: ADMIT Obstetrics & Gynecology; ATTEND Obstetrics & Gynecology
PROC: 10E0XZZ Delivery of Products of Conception, External Approach (ICD-10-PCS; principal; 2016-03-29)
PROC: 3E033VJ Introduction of Other Hormone into Peripheral Vein, Percutaneous Approach (ICD-10-PCS; 2016-03-29)
PROC: 3E0234Z Introduction of Serum, Toxoid and Vaccine into Muscle, Percutaneous Approach (ICD-10-PCS; 2016-04-01)
DX: O24.12 Pre-existing type 2 diabetes mellitus, in childbirth (principal); O36.0930 Maternal care for other rhesus isoimmunization, third trimester, not applicable or unspecified; E11.9 Type 2 diabetes mellitus without complications; O99.824 Streptococcus B carrier state complicating childbirth; O99.214 Obesity complicating childbirth; O66.0 Obstructed labor due to shoulder dystocia; O76 Abnormality in fetal heart rate and rhythm complicating labor and delivery; O75.89 Other specified complications of labor and delivery; E28.2 Polycystic ovarian syndrome; Z68.39 Body mass index [BMI] 39.0-39.9, adult; Z91.11 Patient's noncompliance with dietary regimen; Z3A.38 38 weeks gestation of pregnancy; Z37.0 Single live birth; Z23 Encounter for immunization
CPT/HCPCS: 36415; 80307; 81005; 82962; 85025; 85027; 86592; 86850; 86900; 86901; 88307; 90686; 90715; J1815; J2405; J2540; J2590; J3490

== ENCOUNTER 2016-07-19 19:09 | Emergency (ER) | payer SELFPAY ==
[2016-07-19 19:53] VITALS: BP 146/95
--- NOTE | 2016-07-19 20:43 | ER Document Report ---
ED Oral Problem - General Chief Complaint: Toothache Stated Complaint: TOOTH PAIN Time Seen by Provider: 07/19/16 20:34 Mode of Arrival: Ambulatory Information source: Patient TRAVEL OUTSIDE OF THE U.S. IN LAST 30 DAYS: No - HPI Patient complains to provider of: Toothache Onset: Gradual Quality of pain: Sharp, Throbbing Severity: Severe Pain Level: 5 - Related Data Allergies/Adverse Reactions: No Known Allergies Allergy (Verified 07/19/16 19:49) Past Medical History - General Information source: Patient - Social History Smoking Status: Current Every Day Smoker Cigarette use (# per day): Yes - 3-4 per day Chew tobacco use (# tins/day): No Smoking Education Provided: Yes - less than 2 min Frequency of alcohol use: None Drug Abuse: None Occupation: [employer] Lives with: Spouse/Significant other Family History: Reviewed & Not Pertinent Patient has suicidal ideation: No Patient has homicidal ideation: No - Past Medical History Cardiac Medical History: Reports: Hx Hypertension Pulmonary Medical History: Reports: None EENT Medical History: Reports: None Neurological Medical History: Reports: None Endocrine Medical History: Reports: Hx Diabetes Mellitus Type 2 Renal/ Medical History: Reports: None Malignancy Medical History: Reports: None GI Medical History: Reports: Hx Gastroesophageal Reflux Disease Musculoskeltal Medical History: Reports None Skin Medical History: Reports None Psychiatric Medical History: Reports: None Traumatic Medical History: Reports: None Surgical Hx: Negative Past Surgical History: Reports: None - Immunizations Hx Diphtheria, Pertussis, Tetanus Vaccination: Yes Review of Systems - Review of Systems Constitutional: No symptoms reported EENT: Dental problem Cardiovascular: No symptoms reported Respiratory: No symptoms reported Gastrointestinal: No symptoms reported Genitourinary: No symptoms reported Female Genitourinary: No symptoms reported Musculoskeletal: No symptoms reported Skin: No symptoms reported Hematologic/Lymphatic: No symptoms reported Neurological/Psychological: No symptoms reported Physical Exam - Vital signs Vitals: Temp Pulse Resp BP Pulse Ox 98.0 F 84 18 146/95 H 99 07/19/16 19:50 07/19/16 19:50 07/19/16 19:50 07/19/16 19:50 07/19/16 19:50 Interpretation: Normal - General General appearance: Appears well, Alert - HEENT Head: Normocephalic, Atraumatic Eyes: Normal Pupils: PERRL Ears: Normal External canal: Normal Tympanic membrane: Normal Sinus: Normal Nasal: Normal Mouth/Lips: Caries Mucous membranes: Normal Teeth diagram: 1 - Cavity, hole in the tooth, there is no redness or swelling to gums Pharynx: Normal Neck: Normal - Respiratory Respiratory status: No respiratory distress Chest status: Nontender Breath sounds: Normal Chest palpation: Normal - Cardiovascular Rhythm: Regular Heart sounds: Normal auscultation Murmur: No - Abdominal Inspection: Normal Distension: No distension Bowel sounds: Normal Tenderness: Nontender Organomegaly: No organomegaly - Back Back: Normal, Nontender - Extremities General upper extremity: Normal inspection, Nontender, Normal color, Normal ROM , Normal temperature General lower extremity: Normal inspection, Nontender, Normal color, Normal ROM , Normal temperature, Normal weight bearing. No: Shelbie's sign - Neurological Neuro grossly intact: Yes Cognition: Normal Orientation: AAOx4 [place] Coma Scale Eye Opening: Spontaneous [place] Coma Scale Verbal: Oriented [place] Coma Scale Motor: Obeys Commands [place] Coma Scale Total: 15 Speech: Normal Motor strength normal: LUE, RUE, LLE, RLE Sensory: Normal - Psychological Associated symptoms: Normal affect, Normal mood - Skin Skin Temperature: Warm Skin Moisture: Dry Skin Color: Normal Course - Vital Signs Vital signs: Temp Pulse Resp BP Pulse Ox 98.0 F 84 18 146/95 H 99 07/19/16 19:50 07/19/16 19:50 07/19/16 19:50 07/19/16 19:50 07/19/16 19:50 Discharge - Discharge Clinical Impression: Pain due to dental caries Condition: Stable Disposition: HOME, SELF-CARE Instructions: Dentist Additional Instructions: TOOTHACHE: Your pain is due to dental decay. The tooth must be repaired in order for you to feel better. You will, therefore, be referred to a dentist. We do not have dentists on the staff at [facility]. Severe swelling or drainage around a tooth usually means a dental abscess. This also requires evaluation and treatment by the dentist, but antibiotics may be prescribed while awaiting dental treatment. You should be rechecked immediately if you develop major swelling of the face, increasing pain, a lump in the jaw or gums, headache, difficulty swallowing, or fever. ORAL NARCOTIC MEDICATION: You have been given a prescription for pain control. This medication is a narcotic. It's best taken with food, as nausea can result if taken on an empty stomach. Don't operate machinery or drive within six hours of taking this medication. Do not combine this medicine with alcohol, or with any medication which can cause sedation (such as cold tablets or sleeping pills) unless you get permission from the physician. Narcotics tend to cause constipation. If possible, drink plenty of fluids and eat a diet high in fiber and fruits. Please be aware that prescription narcotics also have the potential for abuse. People become addicted to these medications because of the general sense of wellbeing that they induce. This feeling along with a significant reduction in tension, anxiety, and aggression provides a stimulating seductive quality to these drugs. Once your pain is under control, we encourage you to discard your unused narcotics. FOLLOW-UP CARE: You have been referred for follow-up care to the dentists listed below. Call the dentists office for an appointment as you were instructed or within the next two days. If you experience worsening or a significant change in your symptoms, notify the physician immediately or return to the Emergency Department at any time for re-evaluation. [facility] [address] [place], [place] Tuesday mornings, by appointment [facility] [address] [place] [address] [facility] [address] [facility] [address] ([address]) [place] [facility] [address] [email or web address] [address] [place] [address] Tuesday- 8:00am to 5:00 pm Will see patients from other [facility]. Charges based on income and family size and accepts Medicare, Medicaid, and Insurances Will pull molars COUNT INCLUDES THE [facility] Student Clinics [facility] [id number] Hours of Operation 8:00 am - 4:30 pm weekdays The following dental offices accept Medicaid: [facility] Dr. Call Dr. Reyes Dr. Love Dr. Bravo [facility], [place], and [facility] oral surgery Dr. Mueller ([place]) Dr. Tirado ([place]) [facility] Drs. Crouch ([place]) Dr. Sood ([place]) [facility] Dr. Nur ([place]) Drs. Mora and ([place]) Medicaid Care Line Prescriptions: Hydrocodone/Acetaminophen [[place] 5-325 mg Tablet] 1 tab PO Q6HP PRN #14 tablet PRN Reason: Forms: Elevated Blood Pressure, Smoking Cessation Education, Return to Work
== END 2016-07-19 21:09 | disposition home or self-care (01) ==
LOC: ER 19:09
DX: K02.9 Dental caries, unspecified (principal); K08.89 Other specified disorders of teeth and supporting structures; I10 Essential (primary) hypertension; E11.9 Type 2 diabetes mellitus without complications; F17.210 Nicotine dependence, cigarettes, uncomplicated; Z71.6 Tobacco abuse counseling
CPT/HCPCS: 99282

== ENCOUNTER 2016-08-09 03:19 | Emergency (ER) | payer SELFPAY ==
[2016-08-09] MEDS ORDERED: CLINDAMYCIN HCL 150 MG CAPSULE PO ONE (04:08)
[2016-08-09] MEDS ORDERED: LIDOCAINE 2% INJ (20 MG/ML) 20 ML MDV INJ ONE (04:09)
[2016-08-09] MEDS ORDERED: BUPIVACAINE HCL 0.5 % INJ/PF 30 ML SDV INJ ONE (04:09)
--- NOTE | 2016-08-09 04:57 | ER Document Report ---
ED General - General Chief Complaint: Toe Injury Stated Complaint: TOE PAIN Time Seen by Provider: 08/09/16 04:05 Notes: Patient is a 31-year-old female who has a new diagnosis of diabetes. She is on oral medications. She comes in which she has noticed redness and swelling to her left big toe. She says that she has chronic fungus her toes and her toenails grow abnormally. She feels that the toenail is digging into her toe causing it to become infected. It has been red and swollen for last several days. No redness or swelling into the proximal foot. No fevers. TRAVEL OUTSIDE OF THE [place] IN LAST 30 DAYS: No - Related Data Allergies/Adverse Reactions: No Known Allergies Allergy (Verified 07/19/16 19:49) Past Medical History - Social History Smoking Status: Current Every Day Smoker Chew tobacco use (# tins/day): No Frequency of alcohol use: None Drug Abuse: None Family History: Reviewed & Not Pertinent Patient has suicidal ideation: No Patient has homicidal ideation: No - Past Medical History Cardiac Medical History: Reports: Hx Hypertension Endocrine Medical History: Reports: Hx Diabetes Mellitus Type 2 Renal/ Medical History: Denies: Hx Peritoneal Dialysis GI Medical History: Reports: Hx Gastroesophageal Reflux Disease Surgical Hx: Negative - Immunizations Hx Diphtheria, Pertussis, Tetanus Vaccination: Yes Review of Systems - Review of Systems Notes: My Normal Review Basic REVIEW OF SYSTEMS: CONSTITUTIONAL : Denies fever, chills, or sweats. Denies recent illness. MUSCULOSKELETAL: Pain in left big toe. SKIN: Denies rash or skin lesions. NEUROLOGICAL: Denies altered mental status or loss of consciousness. Denies headache. Denies weakness or paralysis or loss of use of either side. Denies problems with gait or speech. Denies sensory or motor loss. ALL OTHER SYSTEMS REVIEWED AND NEGATIVE. Physical Exam - Vital signs Vitals: Temp Pulse Resp BP Pulse Ox 98.6 F 103 H 16 141/96 H 97 08/09/16 03:19 08/09/16 03:19 08/09/16 03:19 08/09/16 03:19 08/09/16 03:19 - Notes Notes: General Appearance: Well nourished, alert, cooperative, no acute distress, moderate obvious discomfort. Vitals: reviewed, See vital signs table. Extremities: strength 5/5 in all extremities, good pulses in all extremities, some redness and swelling at the tip of the left big toe. She does have a ingrown toenail on his toe which most likely is contributing to the infection. Redness is only at the tip of the toe and does not extend proximally. Skin: warm, dry, appropriate color, no rash Neuro: speech clear, oriented x 3, normal affect, responds appropriately to questions. Course - Vital Signs Vital signs: Temp Pulse Resp BP Pulse Ox 98.1 F 80 16 147/88 H 97 08/09/16 05:15 08/09/16 05:15 08/09/16 05:15 08/09/16 05:15 08/09/16 05:15 - Transfer of Care Notes: 08/10/16 06:53 I did do a wedge resection of the toenail. Also removed the infection of the nail that was embedded in the nail bed to express some pus from the toe. The patient now feels much improved. Toe looks well. She has no redness extending proximally down the toe. I will place her on antibiotics. I encouraged her to return to ER if she has recurrent redness or swelling of the toe, fevers, or she feels unwell. Patient agrees with plan and will be discharged home. Dictation of this chart was performed using voice recognition software; therefore, there may be some unintended grammatical errors. Discharge - Discharge Clinical Impression: Ingrowing nail Condition: Good Disposition: HOME, SELF-CARE Additional Instructions: Please place a clean dressing and neosporin on the toe every day for the next 5 days. please return to the ER immediately if you develop worsening pain, increased swelling, spreading redness, or have further concerns. Please follow up with a doctor for reevaluation in 5 days. Prescriptions: Clindamycin HCl 300 mg PO ASDIR #56 capsule
[2016-08-09 05:18] VITALS: BP 147/88
== END 2016-08-09 05:05 | disposition home or self-care (01) ==
LOC: ER 03:19
PROC: 0HBRXZZ Excision of Toe Nail, External Approach (ICD-10-PCS; principal; 2016-08-09)
DX: L60.0 Ingrowing nail (principal); B35.3 Tinea pedis; E11.9 Type 2 diabetes mellitus without complications; I10 Essential (primary) hypertension; F17.200 Nicotine dependence, unspecified, uncomplicated
CPT/HCPCS: 99283; 11765; J3490

== ENCOUNTER 2017-03-25 16:22 | Inpatient (IN) | payer BC, MEDICAID ==
[2017-03-25] MEDS ORDERED: INSULIN REG, HUMAN 100 UNIT/ML 3 ML VIAL (PYX) SUBCUT SCH (17:00)
[2017-03-25 17:36] LABS: HEMATOCRIT 40.1 % (36.0-47.0); HEMOGLOBIN 13.5 g/dL (12.0-15.5); MEAN CORPUSCULAR HEMOGLOBIN 30.5 pg (27.0-33.4); MEAN CORPUSCULAR HGB CONC 33.7 g/dL (32.0-36.0); MEAN CORPUSCULAR VOLUME 91 fl (80-97); PLATELET COUNT 209 10^3/uL (150-450); RED BLOOD COUNT 4.43 10^6/uL (3.72-5.28); RED CELL DISTRIBUTION WIDTH 13.2 % (11.5-14.0); WHITE BLOOD COUNT 13.8 10^3/uL (4.0-10.5)
[2017-03-25 17:55] LABS: ALANINE AMINOTRANSFERASE 25 U/L (9-52); ALBUMIN 3.4 g/dL (3.5-5.0); ALKALINE PHOSPHATASE 82 U/L (38-126); ANION GAP 8 (5-19); ASPARTATE AMINO TRANSFERASE 13 U/L (14-36); BILIRUBIN,DIRECT 0.2 mg/dL (0.0-0.4); BILIRUBIN,TOTAL 0.3 mg/dL (0.2-1.3); BLOOD UREA NITROGEN 12 mg/dL (7-20); CALCIUM 9.6 mg/dL (8.4-10.2); CARBON DIOXIDE 22 mmol/L (22-30); CHLORIDE 105 mmol/L (98-107); GLUCOSE 207 mg/dL (75-110); POTASSIUM 4.1 mmol/L (3.6-5.0); SODIUM 134.8 mmol/L (137-145); TOTAL PROTEIN 6.3 g/dL (6.3-8.2)
[2017-03-25] MEDS ORDERED: INSULIN NPH (ISOPHANE), HUMAN 100 UNIT/ML 3 ML SUBCUT SCH (22:00)
[2017-03-25] MEDS: INSULIN NPH (ISOPHANE), HUMAN 100 UNIT/ML 3 ML SUBCUT SCH (22:35)
[2017-03-25] MEDS: INSULIN REG, HUMAN 100 UNIT/ML 3 ML VIAL (PYX) SUBCUT SCH (22:35)
[2017-03-26] MEDS ORDERED: INSULIN NPH (ISOPHANE), HUMAN 100 UNIT/ML 3 ML SUBCUT SCH ×2 (08:00)
[2017-03-26] MEDS ORDERED: INSULIN REG, HUMAN 100 UNIT/ML 3 ML VIAL (PYX) SUBCUT SCH ×2 (08:00)
[2017-03-26] MEDS: INSULIN NPH (ISOPHANE), HUMAN 100 UNIT/ML 3 ML SUBCUT SCH (22:19)
[2017-03-26] MEDS: INSULIN REG, HUMAN 100 UNIT/ML 3 ML VIAL (PYX) SUBCUT SCH (22:19)
--- NOTE | 2017-03-27 08:20 | PDOC PROGRESS REPORT ---
Subjective Progress Note for:: 03/27/17 Subjective:: pt feels well She stated she has not seen a bank secrecy act officer and is unsure of what she should be eating Reason For Visit: TYPE II DM, IUP,OBESITY Physical Exam - Physical Exam Vital Signs: Temp Pulse Resp BP Pulse Ox 98.1 F 75 20 107/64 96 03/27/17 03:39 03/27/17 03:39 03/27/17 03:39 03/27/17 03:39 03/27/17 03:39 Intake & Output 03/26/17 03/27/17 03/28/17 06:59 06:59 06:59 Weight 117.48 kg General appearance: PRESENT: no acute distress GI/Abdominal exam: PRESENT: soft Extremities exam: PRESENT: full ROM Result Laboratory Results: 03/25/17 17:25 03/25/17 17:25 Assessment & Plan - Diagnosis (1) Qualifiers: Weeks of gestation: 10 weeks Qualified Code(s): Z3A.10 - 10 weeks gestation of Is this a current diagnosis for this admission?: Yes - Plan Summary Plan Summary: plan bank secrecy act officer consult and increase insulin today plan to d/c in am if blood sugars a re acceptable
--- NOTE | 2017-03-27 09:14 | PDOC PROGRESS REPORT ---
Subjective-OB Subjective: Post Delivery Day: 32 year old. Denies any needs at this time Doing better, seen by Dr. Anglin, needs to go home, has other children at home and needs to go back to work Physical Exam (OB) Vital Signs: Temp Pulse Resp BP Pulse Ox 98.1 F 75 20 107/64 96 03/27/17 03:39 03/27/17 03:39 03/27/17 03:39 03/27/17 03:39 03/27/17 03:39 Intake & Output 03/26/17 03/27/17 03/28/17 06:59 06:59 06:59 Weight 117.48 kg - Abdomen Hernia Present: No Objective-Diagnostic Laboratory: 03/25/17 17:25 03/25/17 17:25 Assessment and Plan(PN) - Assessment and Plan (1) Obesity Qualifiers: Obesity type: due to excess calories Body mass index: unspecified BMI Is this a current diagnosis for this admission?: Yes (2) Type 2 diabetes mellitus Qualifiers: Diabetes mellitus complication status: without complication Is this a current diagnosis for this admission?: Yes (3) Qualifiers: Weeks of gestation: 10 weeks Qualified Code(s): Z3A.10 - 10 weeks gestation of Is this a current diagnosis for this admission?: Yes - Time Spent with Patient Time with patient: Less than 15 minutes Medications reviewed and adjusted accordingly: Yes - Disposition Anticipated Discharge: Home Within: Other - home this afternoon per Dr. Anglin
--- NOTE | 2017-03-27 09:28 | PDOC DISCHARGE SUMMARY ---
Final Diagnosis Discharge Date: 03/27/17 - Final Diagnosis (1) Obesity Is this a current diagnosis for this admission?: Yes (2) Type 2 diabetes mellitus Is this a current diagnosis for this admission?: Yes (3) Is this a current diagnosis for this admission?: Yes Discharge Data - Discharge Medication Prescriptions: Insulin Regular, Human [Humulin R (Reg) Insulin 100 unit/mL] 10 unit SUBCUT QHS 30 Days #1 bottle NPH, Human Insulin Isophane [Humulin N (NPH) Insulin 100 unit/mL] 20 unit SUBCUT QHS 30 Days #1 bottle Insulin Regular, Human [Humulin R (Reg) Insulin 100 unit/mL] 20 unit SUBCUT ACBRKFST 30 Days #1 bottle NPH, Human Insulin Isophane [Humulin N (NPH) Insulin 100 unit/mL] 40 unit SUBCUT ACBRKFST 30 Days #1 bottle Home Medications: Vit,Calc76/Iron/Folic [Pnv 29-1 Tablet] 1 tab PO DAILY 03/29/16 Ibuprofen [Motrin 800 mg Tablet] 800 mg PO Q8A #60 tablet 04/01/16 Metformin HCl [Glucophage] 500 mg PO DAILY #30 tablet 04/01/16 Hydrocodone/Acetaminophen [[place] 5-325 mg Tablet] 1 tab PO Q6HP PRN #14 tablet 07/19/16 Clindamycin HCl 300 mg PO ASDIR #56 capsule 08/09/16 Insulin Regular, Human [Humulin R (Reg) Insulin 100 unit/mL] 10 unit SUBCUT QHS 30 Days #1 bottle 03/27/17 Insulin Regular, Human [Humulin R (Reg) Insulin 100 unit/mL] 20 unit SUBCUT ACBRKFST 30 Days #1 bottle 03/27/17 NPH, Human Insulin Isophane [Humulin N (NPH) Insulin 100 unit/mL] 20 unit SUBCUT QHS 30 Days #1 bottle 03/27/17 NPH, Human Insulin Isophane [Humulin N (NPH) Insulin 100 unit/mL] 40 unit SUBCUT ACBRKFST 30 Days #1 bottle 03/27/17 - Diagnosis Test Laboratory: Temp Pulse Resp BP Pulse Ox 98.1 F 75 20 107/64 96 03/27/17 03:39 03/27/17 03:39 03/27/17 03:39 03/27/17 03:39 03/27/17 03:39 03/25/17 17:25 RBC 4.43 Hgb 13.5 Hct 40.1 - Discharge information/Instructions Discharge Activity: Activity As Tolerated, Keep Legs Elevated Discharge Diet: Regular Disposition: HOME, SELF-CARE Follow up with: [facility] in: 1, Weeks - see vendor quality supervisor today before discharge, instrucions given by Dr. Anglin
[2017-03-27] MEDS ORDERED: INSULIN REG, HUMAN 100 UNIT/ML 3 ML VIAL (PYX) SUBCUT ONE (12:30)
[2017-03-27] MEDS ORDERED: INSULIN NPH (ISOPHANE), HUMAN 100 UNIT/ML 3 ML SUBCUT ONE (12:30)
[2017-03-27 13:23] VITALS: BP 115/74
[2017-03-27] MEDS ORDERED: INSULIN REG, HUMAN 100 UNIT/ML 3 ML VIAL (PYX) SUBCUT SCH (22:00)
[2017-03-27] MEDS ORDERED: INSULIN NPH (ISOPHANE), HUMAN 100 UNIT/ML 3 ML SUBCUT SCH (22:00)
[2017-03-28] MEDS ORDERED: INSULIN NPH (ISOPHANE), HUMAN 100 UNIT/ML 3 ML SUBCUT SCH (08:00)
[2017-03-28] MEDS ORDERED: INSULIN REG, HUMAN 100 UNIT/ML 3 ML VIAL (PYX) SUBCUT SCH (08:00)
== END 2017-03-27 13:40 | disposition home or self-care (01) | DRG 781 ==
LOC: 2S 16:22
PROVIDERS: ADMIT Obstetrics & Gynecology Gynecology; ATTEND Obstetrics & Gynecology Gynecology
DX: O24.111 Pre-existing type 2 diabetes mellitus, in pregnancy, first trimester (principal); Z68.41 Body mass index [BMI] 40.0-44.9, adult; E11.65 Type 2 diabetes mellitus with hyperglycemia; O99.211 Obesity complicating pregnancy, first trimester; E66.9 Obesity, unspecified; Z3A.10 10 weeks gestation of pregnancy; Z79.4 Long term (current) use of insulin; Z87.891 Personal history of nicotine dependence
CPT/HCPCS: 36415; 80053; 82962; 85027; J1815

== ENCOUNTER 2017-09-22 15:42 | Outpatient (CLI) | payer MEDICAID | END 2017-09-22 17:05 | disposition home or self-care (01) | LOC: LC 15:42 | PROVIDERS: ATTEND Student in an Organized Health Care Education/Training Program | PROC: 4A1HXCZ Monitoring of Products of Conception, Cardiac Rate, External Approach (ICD-10-PCS; principal; 2017-09-22) | DX: O24.419 Gestational diabetes mellitus in pregnancy, unspecified control (principal); Z3A.36 36 weeks gestation of pregnancy | CPT/HCPCS: 59025 ==

== ENCOUNTER 2017-10-14 06:14 | Inpatient (IN) | payer MEDICAID ==
[2017-10-13 11:23] LABS: ABSOLUTE EOSINOPHILS # (AUTO) 0.2 10^3/uL (0.0-0.6); ABSOLUTE LYMPHOCYTES (AUTO) 2.9 10^3/uL (0.5-4.7); ABSOLUTE MONOCYTES (AUTO) 1.1 10^3/uL (0.1-1.4); ABSOLUTE NEUT (AUTO) 10.3 10^3/uL (1.7-8.2); BASOPHILS % (AUTO) 0.3 % (0-2); EOSINOPHILS % (AUTO) 1.2 % (0-6); HEMATOCRIT 34.1 % (36.0-47.0); HEMOGLOBIN 11.7 g/dL (12.0-15.5); LYMPHOCYTES % (AUTO) 19.9 % (13-45); MEAN CORPUSCULAR HEMOGLOBIN 31.5 pg (27.0-33.4); MEAN CORPUSCULAR HGB CONC 34.3 g/dL (32.0-36.0); MEAN CORPUSCULAR VOLUME 92 fl (80-97); MONOCYTES % (AUTO) 7.6 % (3-13); PLATELET COUNT 281 10^3/uL (150-450); RED BLOOD COUNT 3.71 10^6/uL (3.72-5.28); RED CELL DISTRIBUTION WIDTH 13.1 % (11.5-14.0); TOTAL CELLS COUNTED % (AUTO) 100 %; WHITE BLOOD COUNT 14.5 10^3/uL (4.0-10.5)
[2017-10-13 11:45] LABS: APPEARANCE,URINE CLOUDY; BILIRUBIN,URINE NEGATIVE (NEGATIVE); CALCIUM OXALATE CRYSTALS,URINE MODERATE /HPF; COLOR,URINE YELLOW; GLUCOSE, URINE 50 mg/dL (NEGATIVE); KETONES,URINE NEGATIVE (NEGATIVE); LEUKOCYTE ESTERASE,URINE MODERATE (NEGATIVE); NITRITE,URINE NEGATIVE (NEGATIVE); PROTEIN,URINE NEGATIVE (NEGATIVE); URINE SPECIFIC GRAVITY 1.026
[2017-10-13 11:57] LABS: URINE AMPHETAMINES SCREEN NEGATIVE; URINE BARBITURATES SCREEN NEGATIVE; URINE BENZODIAZEPINES SCREEN NEGATIVE; URINE COCAINE SCREEN NEGATIVE; URINE MARIJUANA (THC) SCREEN NEGATIVE; URINE METHADONE SCREEN NEGATIVE; URINE PHENCYCLIDINE SCREEN NEGATIVE
[~2017-10-14 06:14] MED LIST: AZITHROMYCIN 500 MG in DEXTROSE 5%-WATER 250 ML IV PRN; CEFAZOLIN 1 GM/D5W RTU 1 GM/50 ML RTUPB IV PRN; LACTATED RINGERS 1000 ML IV PRN; LIDOCAINE 0.5% INJ-PF (5 MG/ML) 50 ML SDV SUBCUT PRN; RINGERS SOLUTION,LACTATED 1,000 ML IV PRN
[2017-10-14] MEDS ORDERED: EPHEDRINE SULFATE INJ 50 MG/1 ML AMPULE ONE (09:10)
[2017-10-14] MEDS ORDERED: FENTANYL CITRATE INJ/PF 100 MCG/2 ML AMPUL ONE (09:10)
[2017-10-14] MEDS ORDERED: BUPIVACAINE HCL/DEX-WATER/PF 15 MG/2 ML AMPULE ONE (09:10)
[2017-10-14] MEDS ORDERED: OXYTOCIN 10 UNIT/ML VIAL ONE (09:10)
[2017-10-14] MEDS ORDERED: ONDANSETRON HCL INJ/PF 4 MG/2 ML SDV ONE (09:10)
[2017-10-14] MEDS ORDERED: MIDAZOLAM 2 MG/2 ML INJ ONE (09:11)
[2017-10-14] MEDS ORDERED: DIPHENHYDRAMINE HCL 50 MG/ML VIAL IV PRN (09:52)
[2017-10-14] MEDS ORDERED: FENTANYL CITRATE INJ/PF 100 MCG/2 ML AMPUL IV PRN ×3 (09:52)
[2017-10-14] MEDS ORDERED: PROMETHAZINE HCL INJ 25 MG/1 ML VIAL IV PRN ×2 (09:52→11:21)
[2017-10-14] MEDS ORDERED: OXYTOCIN/NORMAL SALINE 20 UNIT/1,000 ML RTUINJ ONE (11:05)
[2017-10-14] MEDS ORDERED: MEASLES,MUMPS&RUBELLA VACC/PF 0.5 ML VIAL SUBCUT PRN (11:21)
[2017-10-14] MEDS ORDERED: RINGERS SOLUTION,LACTATED 1,000 ML IV PRN (11:21)
[2017-10-14] MEDS ORDERED: ACETAMINOPHEN 325 MG TABLET PO PRN (11:21)
[2017-10-14] MEDS ORDERED: OXYCODONE-ACETAMINOPHEN 5-325 MG TABLET PO PRN (11:21)
[2017-10-14] MEDS ORDERED: MORPHINE SULFATE 10 MG/ML INJ IV PRN (11:21)
[2017-10-14] MEDS ORDERED: DIPH/PERTUSS(ACELL)/TETANUS VAC/PF 0.5 ML SYR (>=10YO) IM PRN (11:21)
[2017-10-14] MEDS ORDERED: OXYTOCIN/NORMAL SALINE 20 UNIT/1,000 ML RTUINJ IV PRN (11:21)
[2017-10-14] MEDS ORDERED: ACETAMINOPHEN 1,000 MG/100 ML RTUPB IV PRN (11:21)
[2017-10-14] MEDS ORDERED: SIMETHICONE 80 MG TAB.CHEW PO PRN (11:21)
[2017-10-14] MEDS: FENTANYL CITRATE INJ/PF 100 MCG/2 ML AMPUL ONE ×2 (11:50→12:06)
[2017-10-14] MEDS: KETOROLAC TROMETHAMINE INJ/PF 30 MG/1 ML SDV IV SCH (13:24)
[2017-10-14] MEDS: OXYCODONE-ACETAMINOPHEN 5-325 MG TABLET PO PRN ×2 (15:27→20:13)
[2017-10-14] MEDS: DOCUSATE SODIUM 100 MG CAPSULE PO SCH (17:15)
[2017-10-14] MEDS ORDERED: (PENDING PHARMACY ID) (Ranitidine Hcl [Zantac 150 Mg Tablet] 1 TAB) PO SCH (18:00)
[2017-10-14] MEDS ORDERED: NORMAL SALINE 1000 ML 1,000 ML IV ONE (19:00)
[2017-10-15] MEDS: FAMOTIDINE 20 MG TABLET PO SCH ×3 (00:28→21:41)
[2017-10-15] MEDS: KETOROLAC TROMETHAMINE INJ/PF 30 MG/1 ML SDV IV SCH ×2 (00:32→06:25)
[2017-10-15] MEDS: OXYCODONE-ACETAMINOPHEN 5-325 MG TABLET PO PRN ×5 (00:33→21:41)
[2017-10-15 07:04] LABS: HEMATOCRIT 30.9 % (36.0-47.0); HEMOGLOBIN 10.5 g/dL (12.0-15.5); MEAN CORPUSCULAR HEMOGLOBIN 31.9 pg (27.0-33.4); MEAN CORPUSCULAR VOLUME 94 fl (80-97); PLATELET COUNT 249 10^3/uL (150-450); RED CELL DISTRIBUTION WIDTH 13.6 % (11.5-14.0); WHITE BLOOD COUNT 20.2 10^3/uL (4.0-10.5)
[2017-10-15] MEDS: PRENATAL VITAMIN W DHA CAPSULE PO SCH (10:04)
[2017-10-15] MEDS: DOCUSATE SODIUM 100 MG CAPSULE PO SCH ×2 (10:09→17:30)
[2017-10-15] MEDS: METFORMIN HCL 500 MG TABLET PO SCH (10:10)
[2017-10-15] MEDS: ASPIRIN 81 MG TABLET, ENT COATED PO SCH (10:12)
--- NOTE | 2017-10-15 10:25 | PDOC PROGRESS REPORT ---
Subjective-OB Progress Note for:: 10/15/17 Subjective: Post Op Day #1, s/p planned . Physical Exam (OB) Vital Signs: Temp Pulse Resp BP Pulse Ox 98.1 F 74 18 111/48 L 95 10/15/17 07:33 10/15/17 07:33 10/15/17 07:33 10/15/17 07:33 10/15/17 07:33 Intake & Output 10/14/17 10/15/17 10/16/17 06:59 06:59 06:59 Intake Total 2923 Output Total 1600 Balance 1323 Weight 127.6 kg - General General Appearance: Appears well - PIH/Pre-Eclampsia DTR's: 2 + Clonus: Negative Headache: Absent Epigastric Pain: No Visual Changes: No - Dressing Removed: No Incision: Dressing, Well Approximated Closure Type: opsite - Lochia Lochia Amount: Scant < 10 ml Lochia Color: Rubra/Red - Abdomen Description: Soft, Round Hernia Present: No Fundal Description: Firm, Midline Fundal Height: u/u - u/2 - HEENT Eyes: Normal - Respiratory Respiratory Status: No respiratory distress Breath sounds: Clear - Cardiovascular Rhythm: Regular Heart Sounds: Normal auscultation - Abdominal Inspection: Normal Distension: No distension Tenderness: Nontender Organomegaly: No organomegaly Abdominal Notes: +bowel sounds - Extremities Upper extremity: Normal inspection Lower extremities: Edema - 1+ - Neurological Cognition: Normal Orientation: AAOx4 - Psychological Associated symptoms: Normal affect, Normal mood Objective-Diagnostic Laboratory: 10/15/17 06:32 10/15/17 06:32 WBC 20.2 H RBC 3.30 L Hgb 10.5 L Hct 30.9 L MCV 94 MCH 31.9 MCHC 34.0 RDW 13.6 Plt Count 249 Assessment and Plan(PN) - Assessment and Plan (1) deliv due to previous difficult deliv, deliv, curr hospitaliz Is this a current diagnosis for this admission?: Yes (2) Hyperglycemia due to type 2 diabetes mellitus Is this a current diagnosis for this admission?: Yes (3) Obesity Qualifiers: Obesity type: due to excess calories Is this a current diagnosis for this admission?: Yes (4) Positive GBS test Is this a current diagnosis for this admission?: Yes (5) Type 2 diabetes mellitus Is this a current diagnosis for this admission?: Yes - Time Spent with Patient Time with patient: Less than 15 minutes - Disposition Anticipated Discharge: Home Within: within 24 hours, within 48 hours
[2017-10-15] MEDS: IBUPROFEN 800 MG TABLET PO SCH ×4 (10:59→23:24)
[2017-10-16] MEDS: OXYCODONE-ACETAMINOPHEN 5-325 MG TABLET PO PRN (03:04)
[2017-10-16] MEDS: IBUPROFEN 800 MG TABLET PO SCH ×2 (05:30→11:34)
--- NOTE | 2017-10-16 09:54 | PDOC PROGRESS REPORT ---
Subjective-OB Progress Note for:: 10/16/17 Subjective: PP day #2, O negative, Rubella +, , doing well, no complaints Physical Exam (OB) Vital Signs: Temp Pulse Resp BP Pulse Ox 98.3 F 79 18 110/63 99 10/16/17 07:43 10/16/17 07:43 10/16/17 07:43 10/16/17 07:43 10/16/17 07:43 Intake & Output 10/15/17 10/16/17 10/17/17 06:59 06:59 06:59 Intake Total 2923 Output Total 1600 Balance 1323 - General General Appearance: Appears well, Alert In distress: None - PIH/Pre-Eclampsia DTR's: 2 + Clonus: Negative Headache: Absent Epigastric Pain: No Visual Changes: No - Dressing Removed: No - optsite clean dry and intact Incision: Dressing Closure Type: opsite - Lochia Lochia Amount: Small 10-25 ml Lochia Color: Rubra/Red - Abdomen Description: Soft, Round Hernia Present: No Fundal Description: Firm, Midline Fundal Height: u/u - u/2 - Respiratory Respiratory Status: No respiratory distress - Genitourinary Genitourinary Note: voiding - Extremities Upper extremity: Normal inspection Lower extremities: Normal inspection - Neurological Cognition: Normal Orientation: AAOx4 - Psychological Associated symptoms: Normal affect, Normal mood Objective-Diagnostic Laboratory: 10/15/17 06:32 Assessment and Plan(PN) - Assessment and Plan (1) deliv due to previous difficult deliv, deliv, curr hospitaliz Is this a current diagnosis for this admission?: Yes (2) Hyperglycemia due to type 2 diabetes mellitus Is this a current diagnosis for this admission?: Yes (3) Obesity Qualifiers: Obesity type: due to excess calories Is this a current diagnosis for this admission?: Yes (4) Positive GBS test Is this a current diagnosis for this admission?: Yes (5) Type 2 diabetes mellitus Qualifiers: Diabetes mellitus complication status: without complication Is this a current diagnosis for this admission?: Yes - Time Spent with Patient Time with patient: Less than 15 minutes Medications reviewed and adjusted accordingly: Yes - Disposition Anticipated Discharge: Home
--- NOTE | 2017-10-16 10:07 | PDOC DISCHARGE SUMMARY ---
Final Diagnosis Discharge Date: 10/16/17 - Final Diagnosis (1) deliv due to previous difficult deliv, deliv, curr hospitaliz Is this a current diagnosis for this admission?: Yes (2) Hyperglycemia due to type 2 diabetes mellitus Is this a current diagnosis for this admission?: Yes (3) Obesity Is this a current diagnosis for this admission?: Yes (4) Positive GBS test Is this a current diagnosis for this admission?: Yes (5) Type 2 diabetes mellitus Is this a current diagnosis for this admission?: Yes Discharge Data - Discharge Medication Prescriptions: Ibuprofen [Motrin 800 mg Tablet] 800 mg PO Q6 #30 tablet Oxycodone HCl/Acetaminophen [Percocet 5-325 mg Tablet] 1 tab PO Q4HP PRN #30 tablet PRN Reason: Pain Scale Of 3 Home Medications: Vit,Calc76/Iron/Folic [Pnv 29-1 Tablet] 1 tab PO DAILY 03/29/16 Metformin HCl [Glucophage] 500 mg PO DAILY #30 tablet 04/01/16 Ibuprofen [Motrin 800 mg Tablet] 800 mg PO Q6 #30 tablet 10/16/17 Oxycodone HCl/Acetaminophen [Percocet 5-325 mg Tablet] 1 tab PO Q4HP PRN #30 tablet 10/16/17 Reason(s) for Admission: Ceasarean Section-Primary, Ceasarean Section-Repeat, Other - planned primary d/t shoulder dystocia Procedures: NST, Ultrasound Intrapartum Procedure(s): : Low Cervical, Transverse - Diagnosis Test Laboratory: Temp Pulse Resp BP Pulse Ox 98.3 F 79 18 110/63 99 10/16/17 07:43 10/16/17 07:43 10/16/17 07:43 10/16/17 07:43 10/16/17 07:43 10/13/17 10/13/17 10/15/17 10:15 10:25 06:32 RBC 3.71 L 3.30 L Hgb 11.7 L 10.5 L Hct 34.1 L 30.9 L Urine Opiates Screen NEGATIVE - Discharge information/Instructions Discharge Activity: Activity As Tolerated, No Driving, No Lifting Over 10 Pounds , Non-Ambulatory Child Discharge Diet: Diabetic Disposition: HOME, SELF-CARE Follow up with: [facility] in: 1, Weeks - Pt to bring her blood sugar log to review
[2017-10-16] MEDS: PRENATAL VITAMIN W DHA CAPSULE PO SCH (10:51)
[2017-10-16] MEDS: METFORMIN HCL 500 MG TABLET PO SCH (10:51)
[2017-10-16] MEDS: FAMOTIDINE 20 MG TABLET PO SCH (10:51)
[2017-10-16] MEDS: ASPIRIN 81 MG TABLET, ENT COATED PO SCH (10:51)
[2017-10-16] MEDS: DOCUSATE SODIUM 100 MG CAPSULE PO SCH (10:51)
[2017-10-16 11:03] VITALS: BP 130/50
== END 2017-10-16 11:59 | disposition home or self-care (01) | DRG 765 ==
LOC: 2S 06:14
PROVIDERS: ADMIT Obstetrics & Gynecology; ATTEND Obstetrics & Gynecology
PROC: 4A1HXCZ Monitoring of Products of Conception, Cardiac Rate, External Approach (ICD-10-PCS; 2017-10-14)
PROC: 10D00Z1 Extraction of Products of Conception, Low, Open Approach (ICD-10-PCS; principal; 2017-10-14 09:15)
DX: O34.211 Maternal care for low transverse scar from previous cesarean delivery (principal); O24.12 Pre-existing type 2 diabetes mellitus, in childbirth; Z68.42 Body mass index [BMI] 45.0-49.9, adult; Z37.0 Single live birth; E11.65 Type 2 diabetes mellitus with hyperglycemia; O99.824 Streptococcus B carrier state complicating childbirth; Z87.891 Personal history of nicotine dependence; Z79.4 Long term (current) use of insulin; O99.214 Obesity complicating childbirth; E66.9 Obesity, unspecified
CPT/HCPCS: 1961; 36415; 59025; 80307; 81001; 82962; 85025; 85027; 86850; 86900; 86901; 94799; J0456; J1885; J2250; J2405; J2590; J3010; J3490; J7030; J7060; J7120

== ENCOUNTER 2017-12-03 01:51 | Inpatient (IN) | payer MEDICAID ==
[2017-12-03] MEDS ORDERED: VANCOMYCIN HCL INJ 1000 MG VIAL IV ONE (02:45)
[2017-12-03] MEDS ORDERED: CEFTRIAXONE INJ 1000 MG VIAL IV ONE (02:45)
[2017-12-03] MEDS ORDERED: ACETAMINOPHEN 325 MG TABLET PO ONE (02:45)
[2017-12-03] MEDS ORDERED: RINGERS SOLUTION,LACTATED 1,000 ML IV ONE (02:45)
[2017-12-03] MEDS ORDERED: KETOROLAC TROMETHAMINE INJ/PF 30 MG/1 ML SDV IV ONE (02:45)
--- NOTE | 2017-12-03 02:51 | ER Document Report ---
ED General - General Chief Complaint: Incision Problem Stated Complaint: INCISION ISSUE Time Seen by Provider: 12/03/17 02:24 Notes: Patient is a 32-year-old female who presents with 3 days of fever, approximately 8 days of cellulitis around her incisional line. Patient reports that she has seen her TELECOM COORDINATOR regarding this issue, started on cephalexin but has not improvement. She has had fever, chills, rigors and felt generally unwell for the past 4-5 days. No history of similar in the past. She has not noted any drainage from the area. She does note a dull, throbbing, constant, aching pain to the area. Touching the area worsens the pain. Nothing improves the pain. She has been taking ibuprofen without significant relief. TRAVEL OUTSIDE OF THE [place] IN LAST 30 DAYS: No - Related Data Allergies/Adverse Reactions: No Known Allergies Allergy (Verified 10/13/17 11:07) Past Medical History - General Information source: Patient - Social History Smoking Status: Never Smoker Frequency of alcohol use: None Drug Abuse: None Lives with: Spouse/Significant other Family History: Reviewed & Not Pertinent - Past Medical History Cardiac Medical History: Denies: Hx Hypertension, Hx Pulmonary Embolism, Hx Heart Murmur Pulmonary Medical History: Denies: Hx Asthma, Hx Sleep Apnea, Hx Tuberculosis Neurological Medical History: Denies: Hx Cerebrovascular Accident, Hx Seizures Endocrine Medical History: Reports: Hx Diabetes Mellitus Type 2. Denies: Hx Hyperthyroidism, Hx Hypothyroidism Renal/ Medical History: Reports: Hx Ovarian Cysts. Denies: Hx Kidney Stones, Hx Peritoneal Dialysis, Hx Pelvic Inflammatory Disease Malignancy Medical History: Denies: Hx Breast Cancer, Hx Cervical Cancer, Hx Ovarian Cancer GI Medical History: Reports: Hx Gastroesophageal Reflux Disease - PO MEDS. Denies: Hx Hiatal Hernia, Hx Ulcer Musculoskeletal Medical History: Denies Hx Fibromyalgia Psychiatric Medical History: Denies: Hx Bipolar Disorder, Hx Depression, Hx Post Traumatic Stress Disorder , Hx Schizophrenia Traumatic Medical History: Denies: Hx Fractures Infectious Medical History: Denies: Hx HIV - Immunizations Hx Diphtheria, Pertussis, Tetanus Vaccination: Yes Review of Systems - Review of Systems Notes: Constitutional: Positive for fever. HENT: Negative for sore throat. Eyes: Negative for visual changes. Cardiovascular: Negative for chest pain. Respiratory: Negative for shortness of breath. Gastrointestinal: Negative for abdominal pain, vomiting or diarrhea. Genitourinary: Negative for dysuria. Musculoskeletal: Negative for back pain. Skin: Positive for rash, abscess Neurological: Negative for headaches, weakness or numbness. 10 point ROS negative except as marked above and in HPI. Physical Exam - Vital signs Vitals: Temp Pulse Resp BP Pulse Ox 99.7 F 111 H 18 143/80 H 98 12/03/17 02:10 12/03/17 02:10 12/03/17 02:10 12/03/17 02:10 12/03/17 02:10 Interpretation: Tachycardic Notes: PHYSICAL EXAMINATION: GENERAL: Appears somewhat unwell but in no overt distress HEAD: Atraumatic, normocephalic. EYES: Pupils equal round and reactive to light, extraocular movements intact, sclera anicteric, conjunctiva are normal. ENT: nares patent, oropharynx clear without exudates. Mildly dry mucous membranes. NECK: Normal range of motion, supple without lymphadenopathy LUNGS: Breath sounds clear to auscultation bilaterally and equal. No wheezes rales or rhonchi. HEART: Regular rate and rhythm without murmurs ABDOMEN: Soft, nontender, normoactive bowel sounds. No guarding, no rebound. No masses appreciated. EXTREMITIES: Normal range of motion, no pitting or edema. No cyanosis. NEUROLOGICAL: No focal neurological deficits. Moves all extremities spontaneously and on command. PSYCH: Normal mood, normal affect. SKIN: Warm, Dry, normal turgor, there is erythema, cobbling, induration of the soft tissue of the line and pannus region extending to just above the umbilicus. There are several punctate wounds along the incisional line. Course - Re-evaluation Re-evalutation: 12/03/17 02:50 Patient presents with sepsis with associated cellulitis and abscess of her C- section incisional line. When I lifted the patient's pannus to examine the C- section line, a small BB size hole began spewing pus. I did suction the pus and collected over 30 cc of purulent drainage coming directly from the incisional line. Bedside ultrasound does show multiple pockets of retained fluid at this point. The patient also has a cellulitis of spitting up to above her umbilicus. She has had fever to 102.3 F for the past 3 days including tonight prior to arrival. She arrives tachycardic, afebrile however she did take antipyretics just prior to arrival. Likewise she is ready on cephalexin. Suspect that this has been ineffective as this is likely MRSA. The patient does meet sepsis criteria by vitals and obvious source. Will obtain labs, culture, begin vancomycin and ceftriaxone. Will discuss with Dr. Ardon who performed the surgery and request admission. 12/03/17 03:41 Labs do show a leukocytosis, hyperglycemia without evidence of diabetic ketoacidosis. I discussed Dr. Ardon who has accepted the patient for admission - Vital Signs Vital signs: Temp Pulse Resp BP Pulse Ox 99.7 F 111 H 18 143/80 H 98 12/03/17 02:10 12/03/17 02:10 12/03/17 02:10 12/03/17 02:10 12/03/17 02:10 - Laboratory Result Diagrams: 12/03/17 03:00 12/03/17 03:00 Laboratory results interpreted by me: 12/03/17 12/03/17 03:00 03:00 WBC 13.4 H Hgb 10.9 L Hct 32.9 L RDW 15.5 H Absolute Neutrophils 9.7 H Sodium 135.9 L Glucose 409 H* Discharge - Discharge Clinical Impression: Sepsis Qualifiers: Sepsis type: sepsis due to unspecified organism Qualified Code(s): A41.9 - Sepsis, unspecified organism Postoperative infection Qualifiers: Encounter type: initial encounter Postoperative infection type: superficial incisional surgical site Qualified Code(s): T81.41XA - Infection following a procedure, superficial incisional surgical site, initial encounter Condition: Fair Disposition: ADMITTED INPATIENT Admitting Provider: [facility] Admitted: Post
[2017-12-03 03:17] LABS: ABSOLUTE EOSINOPHILS # (AUTO) 0.2 10^3/uL (0.0-0.6); ABSOLUTE LYMPHOCYTES (AUTO) 2.6 10^3/uL (0.5-4.7); ABSOLUTE MONOCYTES (AUTO) 0.9 10^3/uL (0.1-1.4); ABSOLUTE NEUT (AUTO) 9.7 10^3/uL (1.7-8.2); BASOPHILS % (AUTO) 0.3 % (0-2); EOSINOPHILS % (AUTO) 1.2 % (0-6); HEMATOCRIT 32.9 % (36.0-47.0); HEMOGLOBIN 10.9 g/dL (12.0-15.5); LYMPHOCYTES % (AUTO) 19.1 % (13-45); MEAN CORPUSCULAR HEMOGLOBIN 28.5 pg (27.0-33.4); MEAN CORPUSCULAR HGB CONC 33.1 g/dL (32.0-36.0); MEAN CORPUSCULAR VOLUME 86 fl (80-97); MONOCYTES % (AUTO) 7.1 % (3-13); PLATELET COUNT 264 10^3/uL (150-450); RED BLOOD COUNT 3.82 10^6/uL (3.72-5.28); RED CELL DISTRIBUTION WIDTH 15.5 % (11.5-14.0); SEGMENTED NEUTROPHILS % (AUTO) 72.3 % (42-78); TOTAL CELLS COUNTED % (AUTO) 100 %; WHITE BLOOD COUNT 13.4 10^3/uL (4.0-10.5)
[2017-12-03 03:27] LABS: ANION GAP 9 (5-19); BLOOD UREA NITROGEN 20 mg/dL (7-20); CALCIUM 8.9 mg/dL (8.4-10.2); CARBON DIOXIDE 24 mmol/L (22-30); CHLORIDE 103 mmol/L (98-107); POTASSIUM 3.9 mmol/L (3.6-5.0); SODIUM 135.9 mmol/L (137-145)
[2017-12-03 03:33] LABS: GLUCOSE 409 mg/dL (75-110)
[2017-12-03] MEDS ORDERED: INSULIN REG, HUMAN 100 UNIT/ML 3 ML VIAL (PYX) SUBCUT ONE (03:37)
[2017-12-03] MEDS ORDERED: INSULIN REG, HUMAN 100 UNIT/ML 3 ML VIAL (PYX) ONE (06:00)
[2017-12-03] MEDS ORDERED: GLUCAGON,HUMAN RECOMB 1 MG INJ IM PRN (06:04)
[2017-12-03] MEDS ORDERED: DEXTROSE 40% GEL 15 GM TUBE X 2 PO PRN (06:04)
[2017-12-03] MEDS ORDERED: DEXTROSE 40% GEL 15 GM TUBE PO PRN ×3 (06:04→07:10)
[2017-12-03] MEDS ORDERED: DEXTROSE 50%-WATER SYRINGE 12.5 GM/25 ML DOSE IV PRN (06:04)
[2017-12-03] MEDS ORDERED: DEXTROSE 50%-WATER SYRINGE 25 GM/50 ML DOSE IV PRN (06:04)
[2017-12-03] MEDS ORDERED: INSULIN REG, HUMAN 100 UNIT/ML 3 ML VIAL SUBCUT ONE (06:15)
[2017-12-03] MEDS ORDERED: FAMOTIDINE 20 MG TABLET PO ONE (06:30)
--- NOTE | 2017-12-03 07:06 | PDOC H&P ---
History of Present Illness Admission Date/PCP: 12/03/17 04:14 PAULETTE SILVERMAN MD Patient complains of: oozing of c/section incision History of Present Illness: PATRICK RAMSEY is a 32 year old female s/p primary c/section on October 14, 2017. approximately 1 wk ago had the beginning of edema and slight drainage from incision and was placed on Keflex as outpatient. drainage resolved until last night when she had large gush of purulent fluid at home from incision and again in the ER. 30 cc of seropurulent fluid extracted in ER. Past Medical History LMP: na Cardiac Medical History: Denies: Hypertension, Pulmonary Embolism, Heart Murmur Pulmonary Medical History: Denies: Asthma, Sleep Apnea, Tuberculosis Neurological Medical History: Denies: Seizures Endocrine Medical History: Reports: Diabetes Mellitus Type 2 Denies: Hyperthyroidism, Hypothyroidism Malignancy Medical History: Denies: Breast Cancer, Cervical Cancer, Ovarian Cancer GI Medical History: Reports: Gastroesophageal Reflux Disease - PO MEDS Denies: Hiatal Hernia Musculoskeltal Medical History: Denies: Fibromyalgia Psychiatric Medical History: Denies: Bipolar Disorder, Depression, Post Traumatic Stress Disorder Infectious Medical History: Denies: HIV Past Surgical History Past Surgical History: Reports: Other - c/section as above Social History Lives with: Spouse/Significant other Smoking Status: Current Every Day Smoker Cigarettes Packs Per Day: 0.5 Last Time Smoked: 12/02/17 Frequency of Alcohol Use: None Hx Recreational Drug Use: Yes Drugs: Marijuana Hx Prescription Drug Abuse: No - Advance Directive Resuscitation Status: Full Code Family History Family History: Reviewed & Not Pertinent Parental Family History Reviewed: Yes Children Family History Reviewed: Yes Sibling(s) Family History Reviewed.: Yes Medication/Allergy Home Medications: Metformin HCl [Glucophage] 500 mg PO BID 12/03/17 Ranitidine HCl [Zantac 150 mg Tablet] 1 tab PO PRN PRN 12/03/17 Allergies/Adverse Reactions: No Known Allergies Allergy (Verified 10/13/17 11:07) Physical Exam - Physical Exam Vital Signs: Temp Pulse Resp BP Pulse Ox 98.5 F 73 24 H 116/72 96 12/03/17 05:25 12/03/17 05:25 12/03/17 05:25 12/03/17 05:25 12/03/17 05:25 Intake & Output 12/01/17 12/02/1718 06:59 06:59 06:59 Intake Total 150 Balance 150 General appearance: PRESENT: no acute distress, cooperative GI/Abdominal exam: PRESENT: soft, tenderness - incision draining from two small openings in midline of incision. tracked length of Qtip Assessment & Plan - Diagnosis (1) Tobacco abuse Is this a current diagnosis for this admission?: Yes (2) Diabetes 1.5, managed as type 2 Is this a current diagnosis for this admission?: Yes (3) Marijuana abuse Is this a current diagnosis for this admission?: Yes (4) Postoperative infection Qualifiers: Encounter type: initial encounter Postoperative infection type: deep incisional surgical site Qualified Code(s): T81.42XA - Infection following a procedure, deep incisional surgical site, initial encounter Is this a current diagnosis for this admission?: Yes (5) Sepsis Qualifiers: Sepsis type: sepsis due to unspecified organism Qualified Code(s): A41.9 - Sepsis, unspecified organism (6) Obesity Qualifiers: Obesity type: due to excess calories Body mass index: BMI 40.0-44.9 Is this a current diagnosis for this admission?: Yes - Time Time Spent: 30 to 50 Minutes Critical Time spent with patient: Less than 15 minutes Medications reviewed and adjusted accordingly: Yes Anticipated discharge: Home Within: within 72 hours - Inpatient Certification Based on my medical assessment, after consideration of the patient's comorbidities, presenting symptoms, or acuity I expect that the services needed warrant INPATIENT care.: Yes I certify that my determination is in accordance with my understanding of Medicare's requirements for reasonable and necessary INPATIENT services [42 CFR 412.3e].: Yes Medical Necessity: Failure to Improve With Outpatient Therapy, Need Close Monitoring Due to Risk of Patient Decompensation, Need for Pain Control, Need for IV Antibiotics, Need for Surgery - Plan Summary Plan Summary: will do 24 hours of antibiotics today and plan for an I&D tomorrow to thoroughly assess and clean out incision. Repeat CBC in AM. continue Vancomycin and Rocephin
[2017-12-03] MEDS ORDERED: DEXTROSE 50%-WATER 25 GM/50 ML DISP.SYRIN IV PRN ×2 (07:10)
[2017-12-03] MEDS ORDERED: GLUCAGON,HUMAN RECOMB 1 MG INJ SUBCUT PRN (07:10)
[2017-12-03] MEDS: CEFTRIAXONE SODIUM 1,000 MG in DEXTROSE 5%-WATER 50 ML IV SCH ×2 (10:09→21:34)
[2017-12-03] MEDS: VANCOMYCIN HCL 1,500 MG in DEXTROSE 5%-WATER 250 ML IV SCH ×2 (13:46→22:57)
[2017-12-03] MEDS: FAMOTIDINE 20 MG TABLET PO SCH (19:17)
[2017-12-03] MEDS: RINGERS SOLUTION,LACTATED 1,000 ML IV PRN (21:34)
[2017-12-03] MEDS: INSULIN REG, HUMAN 100 UNIT/ML 3 ML VIAL (PYX) SUBCUT PRN (23:20)
[2017-12-04] MEDS: VANCOMYCIN HCL 1,500 MG in DEXTROSE 5%-WATER 250 ML IV SCH ×3 (05:57→22:44)
[2017-12-04] MEDS: FAMOTIDINE 20 MG TABLET PO SCH ×2 (05:57→17:20)
[2017-12-04 05:58] LABS: ABSOLUTE BASOPHILS # (AUTO) 0.1 10^3/uL (0.0-0.2); ABSOLUTE EOSINOPHILS # (AUTO) 0.2 10^3/uL (0.0-0.6); ABSOLUTE LYMPHOCYTES (AUTO) 2.5 10^3/uL (0.5-4.7); ABSOLUTE MONOCYTES (AUTO) 0.7 10^3/uL (0.1-1.4); ABSOLUTE NEUT (AUTO) 4.9 10^3/uL (1.7-8.2); BASOPHILS % (AUTO) 0.9 % (0-2); EOSINOPHILS % (AUTO) 2.2 % (0-6); HEMATOCRIT 31.2 % (36.0-47.0); HEMOGLOBIN 10.4 g/dL (12.0-15.5); LYMPHOCYTES % (AUTO) 30.3 % (13-45); MEAN CORPUSCULAR HEMOGLOBIN 28.5 pg (27.0-33.4); MEAN CORPUSCULAR HGB CONC 33.3 g/dL (32.0-36.0); MEAN CORPUSCULAR VOLUME 86 fl (80-97); MONOCYTES % (AUTO) 8.1 % (3-13); PLATELET COUNT 232 10^3/uL (150-450); RED BLOOD COUNT 3.65 10^6/uL (3.72-5.28); RED CELL DISTRIBUTION WIDTH 14.6 % (11.5-14.0); SEGMENTED NEUTROPHILS % (AUTO) 58.5 % (42-78); TOTAL CELLS COUNTED % (AUTO) 100 %; WHITE BLOOD COUNT 8.4 10^3/uL (4.0-10.5)
[2017-12-04 06:36] LABS: VANCOMYCIN,TROUGH 12.6 ug/mL (5.0-20.0)
[2017-12-04] MEDS ORDERED: ONDANSETRON HCL INJ/PF 4 MG/2 ML SDV ONE (08:11)
[2017-12-04] MEDS ORDERED: SUCCINYLCHOLINE CHLORIDE INJ 200 MG/10 ML VIAL ONE (08:11)
[2017-12-04] MEDS ORDERED: GLYCOPYRROLATE 1 MG/5 ML SYRINGE ONE (08:11)
[2017-12-04] MEDS ORDERED: LIDOCAINE 2% INJ-PF (20 MG/ML) 2 ML AMPUL ONE (08:11)
[2017-12-04] MEDS ORDERED: KETOROLAC TROMETHAMINE 60 MG/2 ML SDV ONE (08:11)
[2017-12-04] MEDS ORDERED: METOCLOPRAMIDE HCL INJ/PF 10 MG/2 ML SDV ONE (10:50)
[2017-12-04] MEDS ORDERED: FAMOTIDINE INJ/PF 20 MG/2 ML SDV IV ONE (10:51)
[2017-12-04] MEDS ORDERED: IPRATROPIUM/ALBUTEROL 0.5-2.5 MG/3 ML AMPUL NEB ONE (11:02)
[2017-12-04] MEDS ORDERED: FENTANYL CITRATE INJ/PF 100 MCG/2 ML AMPUL IV PRN ×3 (11:52)
[2017-12-04] MEDS ORDERED: MEPERIDINE HCL/PF INJ 25 MG/1 ML DISP.SYRIN IV PRN (11:52)
[2017-12-04] MEDS ORDERED: PROMETHAZINE HCL INJ 25 MG/1 ML VIAL IV PRN ×3 (11:52→14:19)
[2017-12-04] MEDS ORDERED: DIPHENHYDRAMINE HCL 50 MG/ML VIAL IV PRN (11:52)
[2017-12-04] MEDS ORDERED: ONDANSETRON HCL INJ/PF 4 MG/2 ML SDV IV PRN (11:52)
[2017-12-04] MEDS ORDERED: MIDAZOLAM 2 MG/2 ML INJ ONE ×3 (11:56→14:48)
[2017-12-04] MEDS ORDERED: DEXMEDETOMIDINE INJ 80 MCG/20 ML VIAL IV ONE (11:56)
[2017-12-04] MEDS ORDERED: FENTANYL CITRATE INJ/PF 100 MCG/2 ML AMPUL ONE ×2 (11:56→11:57)
[2017-12-04] MEDS ORDERED: LIDOCAINE 2% INJ-PF (20 MG/ML) 10 ML AMPUL ONE (11:56)
[2017-12-04] MEDS ORDERED: PROPOFOL INJ 200 MG/20 ML VIAL IV ONE (11:57)
[2017-12-04] MEDS ORDERED: ACETAMINOPHEN 1,000 MG/100 ML RTUPB IV ONE (11:58)
[2017-12-04] MEDS ORDERED: BACITRACIN INJ 50,000 UNIT VIAL ONE (12:03)
[2017-12-04] MEDS ORDERED: LIDOCAINE 2%/EPINEPHRINE INJ 20 ML VIAL ONE (13:36)
[2017-12-04] MEDS ORDERED: ACETAMINOPHEN 1,000 MG/100 ML RTUPB IV PRN (14:19)
[2017-12-04] MEDS ORDERED: MEASLES,MUMPS&RUBELLA VACC/PF 0.5 ML VIAL SUBCUT PRN (14:19)
[2017-12-04] MEDS ORDERED: MORPHINE SULFATE 10 MG/ML INJ IV PRN (14:19)
[2017-12-04] MEDS ORDERED: DIPH/PERTUSS(ACELL)/TETANUS VAC/PF 0.5 ML SYR (>=10YO) IM PRN (14:19)
[2017-12-04] MEDS ORDERED: OXYCODONE-ACETAMINOPHEN 5-325 MG TABLET PO PRN ×2 (14:19)
[2017-12-04] MEDS ORDERED: SIMETHICONE 80 MG TAB.CHEW PO PRN (14:19)
[2017-12-04] MEDS ORDERED: OXYTOCIN/NORMAL SALINE 20 UNIT/1,000 ML RTUINJ IV PRN (14:19)
[2017-12-04] MEDS ORDERED: ACETAMINOPHEN 325 MG TABLET PO PRN (14:19)
[2017-12-04] MEDS ORDERED: (PENDING PHARMACY ID) (Ranitidine Hcl [Zantac 150 Mg Tablet] 1 TAB) PO PRN (14:23)
[2017-12-04] MEDS ORDERED: PROPOFOL 1,000 MG/100 ML INFUS..BTL IV ONE (15:13)
[2017-12-04] MEDS: RINGERS SOLUTION,LACTATED 1,000 ML IV PRN (15:43)
[2017-12-04] MEDS ORDERED: PROPOFOL 1,000 MG/100 ML INFUS..BTL IV PRN (16:08)
--- NOTE | 2017-12-04 16:21 | OPERATIVE REPORT E ---
Operative Report NAME: PATRICK RAMSEY : 1985 AGE: 32Y DATE OF SURGERY: 12/03/2017 ROOM: 210 PREOPERATIVE DIAGNOSIS: SUBCUTANEOUS ABSCESS. POSTOPERATIVE DIAGNOSIS: SUBCUTANEOUS ABSCESS. OPERATION: Incision and drainage of previous incision. SURGEON: HERLINDA FRITZ M.D. ANESTHESIA: Valeria Wadsworth MD, with general. FINDINGS: A defect with active drainage of copious amounts of serosanguineous and some mild purulent fluid. The defect measured approximately 5.5 cm deep and was opened to approximately 12 cm in length. Tissue was healthy in appearance and bled readily once it was lavaged. COMPLICATIONS: None. ESTIMATED BLOOD LOSS: 50 mL. SPECIMENS REMOVED: None. PROCEDURE: Patient was taken to the operating room, prepared and draped in normal sterile fashion, in a supine position. The area of interest was then opened with a 15 blade scalpel. This was carried through to the major part of the defect, with the above findings noted, with a 10 blade scalpel, and the incision was continuously opened until all healthy tissue and all active drainage was affected. This was mopped out with several surgical laps and the lavage was then performed using 3000 mL with Bacitracin mixed in of normal saline. The lavage was perpetuated until all the material was completely evacuated. We then examined and there was a small 0.5 cm defect of the fascia. Again, the fascia did look healthy. There was no friability to it, and there was no evidence of breakdown of the fascia. I feel that this defect was most likely affected with incision into the wound. This was carefully irrigated once more and was repaired with 2 sutures of interrupted 0 Monocryl. The subcutaneous layers were then again copiously irrigated and made hemostatic with Bovie. I then closed the defect in several layers using both 0 Monocryl and 0 chromic. The skin was then reclosed with a 4-0 Ethibond, for removal at a later time. Patient tolerated the procedure well. Sponge and needle counts were correct x2. We placed a Tegaderm dressing with a padded pressure dressing on top. The patient, in hospital, is to be on antibiotics for at least 4 or 5 more days in the hospital, and then she will be carefully monitored for any type of progression of disease. She was taken to the PACU in stable condition. DICTATING PHYSICIAN: HERLINDA FRITZ M.D. [id number] PHY#: [id number] ID: [id number] JOB#: [id number] ACCT: [id number] cc:HERLINDA FRITZ M.D. >
[2017-12-04] MEDS: CEFTRIAXONE SODIUM 1,000 MG in DEXTROSE 5%-WATER 50 ML IV SCH ×2 (17:18→21:42)
[2017-12-04] MEDS: DOCUSATE SODIUM 100 MG CAPSULE PO SCH (17:19)
[2017-12-04] MEDS ORDERED: METFORMIN HCL 500 MG TABLET PO SCH (18:00)
[2017-12-04] MEDS: INSULIN REG, HUMAN 100 UNIT/ML 3 ML VIAL (PYX) SUBCUT PRN (21:23)
[2017-12-04] MEDS: KETOROLAC TROMETHAMINE INJ/PF 30 MG/1 ML SDV IV SCH (21:39)
[2017-12-04] MEDS ORDERED: METFORMIN HCL 500 MG TABLET PO ONE (22:00)
[2017-12-05] MEDS: KETOROLAC TROMETHAMINE INJ/PF 30 MG/1 ML SDV IV SCH ×2 (05:37→14:54)
[2017-12-05] MEDS: FAMOTIDINE 20 MG TABLET PO SCH ×2 (05:42→17:40)
[2017-12-05] MEDS: VANCOMYCIN HCL 1,500 MG in DEXTROSE 5%-WATER 250 ML IV SCH ×3 (05:42→23:55)
[2017-12-05] MEDS: INSULIN REG, HUMAN 100 UNIT/ML 3 ML VIAL (PYX) SUBCUT PRN ×3 (06:28→17:40)
[2017-12-05 06:44] LABS: HEMATOCRIT 26.7 % (36.0-47.0); MEAN CORPUSCULAR HEMOGLOBIN 28.6 pg (27.0-33.4); MEAN CORPUSCULAR HGB CONC 33.6 g/dL (32.0-36.0); MEAN CORPUSCULAR VOLUME 85 fl (80-97); PLATELET COUNT 239 10^3/uL (150-450); RED BLOOD COUNT 3.13 10^6/uL (3.72-5.28); RED CELL DISTRIBUTION WIDTH 14.9 % (11.5-14.0); WHITE BLOOD COUNT 9.5 10^3/uL (4.0-10.5)
--- NOTE | 2017-12-05 07:36 | PDOC PROGRESS REPORT ---
Subjective Progress Note for:: 12/05/17 Subjective:: doing well. minimal discomfort. no further drainage noted Reason For Visit: ABSCESS Physical Exam - Physical Exam Vital Signs: Temp Pulse Resp BP Pulse Ox 98.6 F 70 17 123/77 100 12/04/17 23:27 12/04/17 23:27 12/04/17 23:27 12/04/17 23:27 12/04/17 23:27 Intake & Output 12/04/17 12/05/17 12/06/17 06:59 06:59 06:59 Intake Total 850 5002 Output Total 3845 Balance 850 1157 General appearance: PRESENT: no acute distress, cooperative GI/Abdominal exam: PRESENT: soft, tenderness - appropriate for post op state. no staining on dressing. pressure dressing in place Result Laboratory Results: 12/05/17 06:21 12/04/17 05:48 12/04/17 12/05/17 05:48 06:21 WBC 9.5 RBC 3.13 L Hgb 9.0 L Hct 26.7 L MCV 85 MCH 28.6 MCHC 33.6 RDW 14.9 H Plt Count 239 Serum HCG, Qual NEGATIVE Assessment & Plan - Diagnosis (1) Tobacco abuse Is this a current diagnosis for this admission?: Yes (2) Diabetes 1.5, managed as type 2 Is this a current diagnosis for this admission?: Yes (3) Marijuana abuse Is this a current diagnosis for this admission?: Yes (4) Postoperative infection Qualifiers: Encounter type: initial encounter Postoperative infection type: deep incisional surgical site Qualified Code(s): T81.42XA - Infection following a procedure, deep incisional surgical site, initial encounter Is this a current diagnosis for this admission?: Yes (5) Sepsis Qualifiers: Sepsis type: sepsis due to unspecified organism Qualified Code(s): A41.9 - Sepsis, unspecified organism Is this a current diagnosis for this admission?: Yes (6) Obesity Qualifiers: Obesity type: due to excess calories Body mass index: BMI 40.0-44.9 Is this a current diagnosis for this admission?: Yes - Time Time Spent with patient: Less than 15 minutes Anticipated discharge: Home Within: within 72 hours - Inpatient Certification Based on my medical assessment, after consideration of the patient's comorbidities, presenting symptoms, or acuity I expect that the services needed warrant INPATIENT care.: Yes I certify that my determination is in accordance with my understanding of Medicare's requirements for reasonable and necessary INPATIENT services [42 CFR 412.3e].: Yes Medical Necessity: Significant Comorbidiites Make Outpatient Treatment Too Risky , Need Close Monitoring Due to Risk of Patient Decompensation, Need for IV Antibiotics - Plan Summary Plan Summary: continue iv antibiotics x 3 more days. will rx diflucan due to potential for candidia
[2017-12-05] MEDS ORDERED: PROMETHAZINE HCL INJ 25 MG/1 ML VIAL IV PRN (08:30)
[2017-12-05] MEDS ORDERED: MEASLES,MUMPS&RUBELLA VACC/PF 0.5 ML VIAL SUBCUT PRN (08:30)
[2017-12-05] MEDS ORDERED: DIPH/PERTUSS(ACELL)/TETANUS VAC/PF 0.5 ML SYR (>=10YO) IM PRN (08:30)
[2017-12-05] MEDS: DOCUSATE SODIUM 100 MG CAPSULE PO SCH ×2 (10:57→17:40)
[2017-12-05] MEDS: PRENATAL VITAMIN W DHA CAPSULE PO SCH (10:57)
[2017-12-05] MEDS: FLUCONAZOLE 100 MG TABLET PO SCH (10:58)
[2017-12-05] MEDS: CEFTRIAXONE SODIUM 1,000 MG in DEXTROSE 5%-WATER 50 ML IV SCH ×2 (10:58→22:05)
[2017-12-05] MEDS: METFORMIN HCL 500 MG TABLET PO SCH ×2 (10:58→17:40)
[2017-12-05] MEDS: IBUPROFEN 800 MG TABLET PO SCH (17:40)
[2017-12-06] MEDS: INSULIN REG, HUMAN 100 UNIT/ML 3 ML VIAL (PYX) SUBCUT PRN ×5 (00:17→23:26)
[2017-12-06] MEDS: IBUPROFEN 800 MG TABLET PO SCH ×5 (00:18→23:27)
[2017-12-06] MEDS: FAMOTIDINE 20 MG TABLET PO SCH ×2 (06:18→17:39)
[2017-12-06 06:22] LABS: ABSOLUTE BASOPHILS # (AUTO) 0.1 10^3/uL (0.0-0.2); ABSOLUTE EOSINOPHILS # (AUTO) 0.2 10^3/uL (0.0-0.6); ABSOLUTE LYMPHOCYTES (AUTO) 2.5 10^3/uL (0.5-4.7); ABSOLUTE MONOCYTES (AUTO) 0.5 10^3/uL (0.1-1.4); ABSOLUTE NEUT (AUTO) 4.4 10^3/uL (1.7-8.2); BASOPHILS % (AUTO) 0.9 % (0-2); EOSINOPHILS % (AUTO) 2.5 % (0-6); HEMATOCRIT 26.3 % (36.0-47.0); LYMPHOCYTES % (AUTO) 32.4 % (13-45); MEAN CORPUSCULAR HEMOGLOBIN 28.5 pg (27.0-33.4); MEAN CORPUSCULAR HGB CONC 34.1 g/dL (32.0-36.0); MEAN CORPUSCULAR VOLUME 84 fl (80-97); MONOCYTES % (AUTO) 6.9 % (3-13); PLATELET COUNT 234 10^3/uL (150-450); RED BLOOD COUNT 3.14 10^6/uL (3.72-5.28); RED CELL DISTRIBUTION WIDTH 14.7 % (11.5-14.0); SEGMENTED NEUTROPHILS % (AUTO) 57.3 % (42-78); TOTAL CELLS COUNTED % (AUTO) 100 %; WHITE BLOOD COUNT 7.7 10^3/uL (4.0-10.5)
[2017-12-06] MEDS: CEFTRIAXONE SODIUM 1,000 MG in DEXTROSE 5%-WATER 50 ML IV SCH ×2 (09:19→22:34)
[2017-12-06] MEDS: METFORMIN HCL 500 MG TABLET PO SCH ×2 (10:00→17:38)
[2017-12-06] MEDS: FLUCONAZOLE 100 MG TABLET PO SCH (10:00)
[2017-12-06] MEDS: DOCUSATE SODIUM 100 MG CAPSULE PO SCH ×2 (10:01→17:38)
[2017-12-06] MEDS: PRENATAL VITAMIN W DHA CAPSULE PO SCH (10:01)
[2017-12-06] MEDS: VANCOMYCIN HCL 1,500 MG in DEXTROSE 5%-WATER 250 ML IV SCH ×2 (10:05→17:39)
[2017-12-07] MEDS: VANCOMYCIN HCL 1,500 MG in DEXTROSE 5%-WATER 250 ML IV SCH ×2 (02:23→10:58)
[2017-12-07] MEDS: FAMOTIDINE 20 MG TABLET PO SCH (05:51)
[2017-12-07] MEDS: IBUPROFEN 800 MG TABLET PO SCH (05:53)
[2017-12-07] MEDS: INSULIN REG, HUMAN 100 UNIT/ML 3 ML VIAL (PYX) SUBCUT PRN (08:00)
--- NOTE | 2017-12-07 09:39 | PDOC PROGRESS REPORT ---
Subjective Progress Note for:: 12/07/17 Subjective:: Patient states that she is ready to go home today; pain controlled. Patient denies chest pain, fever/chills, nausea/vomiting and shortness of breath. Patient is ambulating and voiding without difficulty Reason For Visit: ABSCESS Physical Exam - Physical Exam Vital Signs: Temp Pulse Resp BP Pulse Ox 98.1 F 67 18 126/94 H 99 12/07/17 07:52 12/07/17 07:52 12/07/17 07:52 12/07/17 07:52 12/07/17 07:52 Intake & Output 12/06/17 12/07/17 12/08/17 06:59 06:59 06:59 Intake Total 3400 1730 240 Balance 3400 1730 240 Weight 120.2 kg 120.4 kg General appearance: PRESENT: no acute distress, morbidly obese, well-nourished Respiratory exam: PRESENT: clear to auscultation [place] Cardiovascular exam: PRESENT: RRR GI/Abdominal exam: PRESENT: normal bowel sounds - Incision: Clean/dry/intact; no erythema Extremities exam: ABSENT: calf tenderness, clubbing, full ROM, joint swelling, pedal edema, tenderness, +1 edema, +2 edema, other Result Laboratory Results: 12/06/17 06:10 12/04/17 05:48 12/03/17 04:30 Blood Blood Culture - Final Staphylococcus Hominis 12/03/17 07:30 Abdomen - Abscess Gram Stain - Final 12/03/17 07:30 Abdomen - Abscess Wound Culture - Final 1+ SKIN SEN Assessment & Plan - Diagnosis (1) Tobacco abuse Is this a current diagnosis for this admission?: Yes (2) Sepsis Qualifiers: Sepsis type: methicillin susceptible Staphylococcus aureus Qualified Code(s ): A41.01 - Sepsis due to Methicillin susceptible Staphylococcus aureus Is this a current diagnosis for this admission?: Yes (4) Marijuana abuse Is this a current diagnosis for this admission?: Yes (5) Postoperative infection Qualifiers: Encounter type: initial encounter Postoperative infection type: deep incisional surgical site Qualified Code(s): T81.42XA - Infection following a procedure, deep incisional surgical site, initial encounter Is this a current diagnosis for this admission?: Yes (6) deliv due to previous difficult deliv, deliv, curr hospitaliz Is this a current diagnosis for this admission?: No (7) Delivery normal Is this a current diagnosis for this admission?: No - Plan Summary Plan Summary: [place]: Plan: 1. Status post primary low transverse section (October 14, 2017) --wound infection with sepsis--resolving --Afebrile --Normal leukocytosis 2. Type 2 diabetes--poorly controlled, patient counseled 3. Tobacco use--counseled to stop use 4. Morbid obesity 5. Anticipate discharge later today--Rx Bactrim
[2017-12-07] MEDS: PRENATAL VITAMIN W DHA CAPSULE PO SCH (10:06)
[2017-12-07] MEDS: METFORMIN HCL 500 MG TABLET PO SCH (10:06)
[2017-12-07] MEDS: DOCUSATE SODIUM 100 MG CAPSULE PO SCH (10:06)
[2017-12-07] MEDS: FLUCONAZOLE 100 MG TABLET PO SCH (10:06)
[2017-12-07] MEDS: CEFTRIAXONE SODIUM 1,000 MG in DEXTROSE 5%-WATER 50 ML IV SCH (10:07)
[2017-12-07 10:43] VITALS: BP 127/75
--- NOTE | 2017-12-07 12:56 | PDOC DISCHARGE SUMMARY ---
General - Admit/Disc Date/PCP Admission Date/Primary Care Provider: 12/03/17 04:14 PAULETTE SILVERMAN MD Discharge Date: 12/07/17 - Discharge Diagnosis (1) deliv due to previous difficult deliv, deliv, curr hospitaliz Is this a current diagnosis for this admission?: No (2) Postoperative infection Is this a current diagnosis for this admission?: Yes (3) Marijuana abuse Is this a current diagnosis for this admission?: Yes (4) Diabetes 1.5, managed as type 2 Is this a current diagnosis for this admission?: Yes (5) Tobacco abuse Is this a current diagnosis for this admission?: Yes (6) Sepsis Is this a current diagnosis for this admission?: Yes (7) Delivery normal Is this a current diagnosis for this admission?: No (8) Hyperglycemia due to type 2 diabetes mellitus Is this a current diagnosis for this admission?: Yes - Additional Information Resuscitation Status: Full Code Discharge Diet: Diabetic Discharge Activity: No Lifting Over 10 Pounds, No Lifting/Push/Pulling, Pelvic Rest, No tub bath, Walk Frequently Prescriptions: Enoxaparin Sodium [Lovenox Inj 40 Mg/0.4 Ml Disp.Syrin] 40 mg SUBCUT QAM #14 disp.syrin Ibuprofen [Motrin 800 mg Tablet] 800 mg PO Q6 PRN #30 tablet PRN Reason: Oxycodone HCl/Acetaminophen [Percocet 5-325 mg Tablet] 2 tab PO Q4HP PRN #20 tablet PRN Reason: Sulfamethoxazole/Trimethoprim [Bactrim Ds Tablet] 1 each PO Q12 #20 tablet Home Medications: Metformin HCl [Glucophage] 500 mg PO BID 12/03/17 Enoxaparin Sodium [Lovenox Inj 40 Mg/0.4 Ml Disp.Syrin] 40 mg SUBCUT QAM #14 disp.syrin 12/07/17 Ibuprofen [Motrin 800 mg Tablet] 800 mg PO Q6 PRN #30 tablet 12/07/17 Oxycodone HCl/Acetaminophen [Percocet 5-325 mg Tablet] 2 tab PO Q4HP PRN #20 tablet 12/07/17 Vit/Dha [ Multi + Dha Capsule] 1 cap PO DAILY capsule Sulfamethoxazole/Trimethoprim [Bactrim Ds Tablet] 1 each PO Q12 #20 tablet 12/07 History of Present Illness History of Present Illness: PATRICK RAMSEY is a 32 year old female presented to the ED c/o purulent drainage from her C/S incision. She is s/p Primary Low Transverse c/S on October 14. Physical Exam - Physical Exam Vital Signs: Temp Pulse Resp BP Pulse Ox 98.1 F 67 18 127/75 H 99 12/07/17 10:38 12/07/17 10:38 12/07/17 10:38 12/07/17 10:38 12/07/17 10:38 Intake & Output 12/06/17 12/07/17 12/08/17 06:59 06:59 06:59 Intake Total 3400 2030 240 Balance 3400 2030 240 Weight 120.2 kg 120.4 kg General appearance: PRESENT: no acute distress, morbidly obese, well-developed Respiratory exam: PRESENT: clear to auscultation [place] Cardiovascular exam: PRESENT: RRR GI/Abdominal exam: PRESENT: normal bowel sounds, soft - Incision: C/D/I Result Laboratory Results: 12/06/17 06:10 12/04/17 05:48 12/03/17 04:30 Blood Blood Culture - Final Staphylococcus Hominis 12/03/17 07:30 Abdomen - Abscess Gram Stain - Final 12/03/17 07:30 Abdomen - Abscess Wound Culture - Final 1+ SKIN SEN Plan Time Spent: Greater than 30 Minutes
== END 2017-12-07 13:25 | disposition home or self-care (01) | DRG 776 ==
LOC: ER 01:51 → EH 04:14 → 2N 05:14 → ICU 12-04 14:58 → 2N 12-04 20:30
PROVIDERS: ADMIT Obstetrics & Gynecology; ATTEND Obstetrics & Gynecology
PROC: 0J980ZX Drainage of Abdomen Subcutaneous Tissue and Fascia, Open Approach, Diagnostic (ICD-10-PCS; 2017-12-03)
PROC: 0BH17EZ Insertion of Endotracheal Airway into Trachea, Via Natural or Artificial Opening (ICD-10-PCS; 2017-12-04)
PROC: 5A1935Z Respiratory Ventilation, Less than 24 Consecutive Hours (ICD-10-PCS; principal; 2017-12-04 09:00)
DX: O86.02 Infection of obstetric surgical wound, deep incisional site (principal); O86.04 Sepsis following an obstetrical procedure; O24.13 Pre-existing type 2 diabetes mellitus, in the puerperium; O99.325 Drug use complicating the puerperium; E11.65 Type 2 diabetes mellitus with hyperglycemia; O99.335 Smoking (tobacco) complicating the puerperium; F17.210 Nicotine dependence, cigarettes, uncomplicated; K21.9 Gastro-esophageal reflux disease without esophagitis; O99.89 Other specified diseases and conditions complicating pregnancy, childbirth and the puerperium; F12.10 Cannabis abuse, uncomplicated; Z78.1 Physical restraint status
CPT/HCPCS: 36415; 400; 80048; 80202; 82565; 82962; 83036; 83605; 84703; 85025; 85027; 87040; 87070; 87077; 87186; 87205; 94002; 94799; 96365; 96375; 99284; J0131; J0330; J0696; J1815; J1885; J2250; J2405; J2704; J2765; J3010; J3370; J3490; J7060; J7120; J7620; S0028

== ENCOUNTER 2019-01-27 02:15 | Emergency (ER) | payer MEDICAID ==
--- NOTE | 2019-01-27 03:20 | RADIOLOGY REPORT (SQ) ---
CLINICAL HISTORY: congestion COMPARISON: None. TECHNIQUE: XR CHEST 1 VIEW 01/27/2019 12:00 AM [employer]LE[employer] FINDINGS: Cardiac silhouette is normal in size. Lungs are clear without consolidation, atelectasis, mass or edema. There is no pleural effusion. There is no pneumothorax. There are no acute osseous findings. IMPRESSION: Clear lungs.
[2019-01-27 03:25] LABS: A TYPE INFLUENZA AG NEGATIVE (NEGATIVE); B INFLUENZA AG NEGATIVE (NEGATIVE)
--- NOTE | 2019-01-27 06:33 | ER Document Report ---
ED Respiratory Problem - General Chief Complaint: Cold Symptoms Stated Complaint: COLD SYMPTOMS Time Seen by Provider: 01/27/19 06:08 Primary Care Provider: PAULETTE SILVERMAN MD [Primary Care Provider] - Follow up as needed Notes: 34 year old female arrives with concern over URI symptoms and 1 child at home recently diagnosed with pneumonia. She has a h/o DM and no PCP. Nl BS for her are about 200 which is where she has been. Nasal congestion and frontal and facial headache. No fever. TRAVEL OUTSIDE OF THE [place] IN LAST 30 DAYS: No - HPI Patient complains to provider of: Cough. No: Short of breath Onset: Other - 3-4 days Severity: Moderate Short of Breath: Moderate Cough: Nonproductive - Related Data Allergies/Adverse Reactions: No Known Allergies Allergy (Verified 10/13/17 11:07) Past Medical History - Social History Smoking Status: Current Every Day Smoker Family History: Reviewed & Not Pertinent Patient has suicidal ideation: No Patient has homicidal ideation: No - Past Medical History Cardiac Medical History: Denies: Hx Hypertension, Hx Pulmonary Embolism, Hx Heart Murmur Pulmonary Medical History: Denies: Hx Asthma, Hx Sleep Apnea, Hx Tuberculosis Neurological Medical History: Denies: Hx Cerebrovascular Accident, Hx Seizures Endocrine Medical History: Reports: Hx Diabetes Mellitus Type 2. Denies: Hx Hyperthyroidism, Hx Hypothyroidism Renal/ Medical History: Reports: Hx Ovarian Cysts. Denies: Hx Kidney Stones, Hx Peritoneal Dialysis, Hx Pelvic Inflammatory Disease Malignancy Medical History: Denies: Hx Breast Cancer, Hx Cervical Cancer, Hx Ovarian Cancer GI Medical History: Reports: Hx Gastroesophageal Reflux Disease - PO MEDS. Denies: Hx Hiatal Hernia, Hx Ulcer Musculoskeletal Medical History: Denies Hx Fibromyalgia Psychiatric Medical History: Denies: Hx Bipolar Disorder, Hx Depression, Hx Post Traumatic Stress Disorder, Hx Schizophrenia Traumatic Medical History: Denies: Hx Fractures Infectious Medical History: Denies: Hx HIV Past Surgical History: Reports: Hx Gynecologic Surgery - 2018, Other - c/section as above - Immunizations Hx Diphtheria, Pertussis, Tetanus Vaccination: Yes Review of Systems - Review of Systems Constitutional: No symptoms reported EENT: Sinus discharge Cardiovascular: No symptoms reported Respiratory: No symptoms reported Gastrointestinal: No symptoms reported Genitourinary: No symptoms reported Female Genitourinary: No symptoms reported Musculoskeletal: No symptoms reported Skin: No symptoms reported Hematologic/Lymphatic: See HPI Neurological/Psychological: No symptoms reported Physical Exam - Vital signs Vitals: Temp Pulse Resp BP Pulse Ox 98.3 F 106 H 18 137/95 H 95 01/27/19 02:21 01/27/19 02:21 01/27/19 02:21 01/27/19 02:21 01/27/19 02:21 Interpretation: Normal - General General appearance: Appears well, Alert - HEENT Head: Normocephalic, Atraumatic Eyes: Normal Pupils: PERRL Nasal: Other - ttp over max sinus and frontal sinus. No sign of invasive sinus disease. - Respiratory Respiratory status: No respiratory distress Chest status: Nontender Breath sounds: Normal Chest palpation: Normal - Cardiovascular Rhythm: Regular Heart sounds: Normal auscultation Murmur: No - Abdominal Inspection: Normal Distension: No distension Bowel sounds: Normal Tenderness: Nontender Organomegaly: No organomegaly - Back Back: Normal, Nontender - Extremities General upper extremity: Normal inspection, Nontender, Normal color, Normal ROM, Normal temperature General lower extremity: Normal inspection, Nontender, Normal color, Normal ROM, Normal temperature, Normal weight bearing. No: Shelbie's sign - Neurological Neuro grossly intact: Yes Cognition: Normal Orientation: AAOx4 Rowan Coma Scale Eye Opening: Spontaneous Cherry Coma Scale Verbal: Oriented Cherry Coma Scale Motor: Obeys Commands Rowan Coma Scale Total: 15 Speech: Normal Motor strength normal: LUE, RUE, LLE, RLE Sensory: Normal - Psychological Associated symptoms: Normal affect, Normal mood - Skin Skin Temperature: Warm Skin Moisture: Dry Skin Color: Normal Course - Vital Signs Vital signs: Temp Pulse Resp BP Pulse Ox 98.6 F 82 16 132/60 H 100 01/27/19 06:38 01/27/19 06:38 01/27/19 06:38 01/27/19 06:38 01/27/19 06:38 Discharge - Discharge Clinical Impression: Acute sinusitis Qualifiers: Sinusitis location: frontal Recurrence: non-recurrent Qualified Code(s): J01.10 - Acute frontal sinusitis, unspecified Condition: Good Disposition: HOME, SELF-CARE Instructions: Family Physicians / Practices, Sinusitis ([facility]) Additional Instructions: Follow your diabetic diet. Take the medicine as directed. Please return here for any problems or any concerns. Prescriptions: Fluconazole [Diflucan] 150 mg PO ONCE PRN #1 tablet PRN Reason: Cephalexin Monohydrate [Keflex 500 mg Capsule] 500 mg PO TID #30 capsule Referrals: PAULETTE SILVERMAN MD [Primary Care Provider] - Follow up as needed
[2019-01-27 06:39] VITALS: BP 132/60
== END 2019-01-27 06:44 | disposition home or self-care (01) ==
LOC: ER 02:15
DX: J01.10 Acute frontal sinusitis, unspecified (principal); R51 Headache; F17.200 Nicotine dependence, unspecified, uncomplicated; E11.9 Type 2 diabetes mellitus without complications
CPT/HCPCS: 71045; 87804; 99283

== ENCOUNTER → 2019-05-24 | Outpatient (CLI) | payer OTHER ==
[2019-05-24 14:53] LABS: ABSOLUTE EOSINOPHILS # (AUTO) 0.1 10^3/uL (0.0-0.6); ABSOLUTE LYMPHOCYTES (AUTO) 2.1 10^3/uL (0.5-4.7); ABSOLUTE MONOCYTES (AUTO) 0.5 10^3/uL (0.1-1.4); ABSOLUTE NEUT (AUTO) 4.2 10^3/uL (1.7-8.2); BASOPHILS % (AUTO) 0.7 % (0-2); EOSINOPHILS % (AUTO) 1.4 % (0-6); HEMATOCRIT 43.7 % (36.0-47.0); HEMOGLOBIN 15.3 g/dL (12.0-15.5); MEAN CORPUSCULAR HEMOGLOBIN 31.7 pg (27.0-33.4); MEAN CORPUSCULAR VOLUME 91 fl (80-97); MONOCYTES % (AUTO) 7.8 % (3-13); PLATELET COUNT 179 10^3/uL (150-450); RED BLOOD COUNT 4.84 10^6/uL (3.72-5.28); RED CELL DISTRIBUTION WIDTH 12.2 % (11.5-14.0); SEGMENTED NEUTROPHILS % (AUTO) 60.1 % (42-78); TOTAL CELLS COUNTED % (AUTO) 100 %
[2019-05-24 15:27] LABS: ALBUMIN 3.8 g/dL (3.5-5.0); ALKALINE PHOSPHATASE 115 U/L (38-126); ANION GAP 6 (5-19); ASPARTATE AMINO TRANSFERASE 21 U/L (14-36); BILIRUBIN,DIRECT 0.3 mg/dL (0.0-0.4); BILIRUBIN,TOTAL 0.6 mg/dL (0.2-1.3); BLOOD UREA NITROGEN 11 mg/dL (7-20); CALCIUM 9.1 mg/dL (8.4-10.2); CARBON DIOXIDE 27 mmol/L (22-30); CHLORIDE 103 mmol/L (98-107); CHOLESTEROL 231.44 mg/dL (0-200); GLUCOSE 324 mg/dL (75-110); POTASSIUM 5.1 mmol/L (3.6-5.0); TOTAL PROTEIN 7.2 g/dL (6.3-8.2); TRIGLYCERIDES 248 mg/dL (<150)
[2019-05-24 15:38] LABS: DIRECT LDL 153 mg/dL (<100)
[2019-05-24 15:39] LABS: VLDL CHOLESTEROL 49.6 mg/dL (10-31)
== END ==
LOC: CCC 14:19
DX: Z00.00 Encounter for general adult medical examination without abnormal findings (principal)
CPT/HCPCS: 36415; 80053; 80061; 82306; 83036; 84443; 85025

== ENCOUNTER 2019-12-15 15:49 | Emergency (ER) | payer SELFPAY ==
--- NOTE | 2019-12-15 16:29 | ER Document Report ---
ED Medical Screen (RME) - General Chief Complaint: Neck Problem Stated Complaint: LUMP ON NECK Time Seen by Provider: 12/15/19 16:18 [facility] [Primary [facility] Provider] - Follow up as needed Mode of Arrival: Ambulatory Information source: Patient Notes: 34-year-old female presented to ED for feeling like something is stuck in her t hroat for about couple weeks. She states it comes and goes. She states now she has a large lymph node on the right anterior cervical chain. She states that she has not had any fever any shortness of breath any nasal drainage any decayed teeth. She states it is very tender to palpation. I did explain to her that I cervical chain lymph node pain can be from any kind of infection to the face. S he states she does still have the feeling like there is something stuck in her throat but she does not know what it would be. She states she smokes half pack a day rarely drinks does smoke some marijuana works at [employer] is with her significant other and kids has a history of diabetes type 2 PCOS GERD has had a and a surgery for sepsis due to wound infection. I have greeted and performed a rapid initial assessment of this patient. A comprehensive ED assessment and evaluation of the patient, analysis of test results and completion of medical decision making process will be conducted by an additional ED providers. TRAVEL OUTSIDE OF THE [place] IN LAST 30 DAYS: No - Related Data Allergies/Adverse Reactions: No Known Allergies Allergy (Verified 10/13/17 11:07) Past Medical History - Past Medical History Cardiac Medical History: Denies: Hx Hypertension, Hx Pulmonary Embolism, Hx Heart Murmur Pulmonary Medical History: Denies: Hx Asthma, Hx Sleep Apnea, Hx Tuberculosis Neurological Medical History: Denies: Hx Cerebrovascular Accident, Hx Seizures Endocrine Medical History: Reports: Hx Diabetes Mellitus Type 2. Denies: Hx Hyperthyroidism, Hx Hypothyroidism Renal/ Medical History: Reports: Hx Ovarian Cysts. Denies: Hx Kidney Stones, Hx Peritoneal Dialysis, Hx Pelvic Inflammatory Disease Malignancy Medical History: Denies: Hx Breast Cancer, Hx Cervical Cancer, Hx Ovarian Cancer GI Medical History: Reports: Hx Gastroesophageal Reflux Disease - PO MEDS. Denies: Hx Hiatal Hernia, Hx Ulcer Musculoskeltal Medical History: Denies Hx Fibromyalgia Psychiatric Medical History: Denies: Hx Bipolar Disorder, Hx Depression, Hx Post Traumatic Stress Disorder, Hx Schizophrenia Traumatic Medical History: Denies: Hx Fractures Infectious Medical History: Denies: Hx HIV Past Surgical History: Reports: Hx Gynecologic Surgery - 2018, Other - c/section as above - Immunizations Hx Diphtheria, Pertussis, Tetanus Vaccination: Yes Physical Exam - Vital signs Vitals: Temp Pulse Resp BP Pulse Ox 98.5 F 95 18 154/98 H 99 12/15/19 15:54 12/15/19 15:54 12/15/19 15:54 12/15/19 15:54 12/15/19 15:54 Course - Vital Signs Vital signs: Temp Pulse Resp BP Pulse Ox 98.5 F 95 18 154/98 H 99 12/15/19 15:54 12/15/19 15:54 12/15/19 15:54 12/15/19 15:54 12/15/19 15:54 Doctor's Discharge - Discharge Referrals: [facility] [Primary Care Provider] - Follow up as needed
[2019-12-15 16:49] LABS: ABSOLUTE BASOPHILS # (AUTO) 0.1 10^3/uL (0.0-0.2); ABSOLUTE EOSINOPHILS # (AUTO) 0.1 10^3/uL (0.0-0.6); ABSOLUTE LYMPHOCYTES (AUTO) 2.3 10^3/uL (0.5-4.7); ABSOLUTE MONOCYTES (AUTO) 0.5 10^3/uL (0.1-1.4); ABSOLUTE NEUT (AUTO) 5.4 10^3/uL (1.7-8.2); EOSINOPHILS % (AUTO) 1.3 % (0-6); HEMATOCRIT 45.2 % (36.0-47.0); HEMOGLOBIN 15.6 g/dL (12.0-15.5); LYMPHOCYTES % (AUTO) 27.4 % (13-45); MEAN CORPUSCULAR HEMOGLOBIN 31.5 pg (27.0-33.4); MEAN CORPUSCULAR HGB CONC 34.4 g/dL (32.0-36.0); MEAN CORPUSCULAR VOLUME 92 fl (80-97); MONOCYTES % (AUTO) 6.4 % (3-13); PLATELET COUNT 178 10^3/uL (150-450); RED BLOOD COUNT 4.94 10^6/uL (3.72-5.28); RED CELL DISTRIBUTION WIDTH 12.6 % (11.5-14.0); SEGMENTED NEUTROPHILS % (AUTO) 63.9 % (42-78); TOTAL CELLS COUNTED % (AUTO) 100 %; WHITE BLOOD COUNT 8.4 10^3/uL (4.0-10.5)
[2019-12-15 17:07] LABS: ALBUMIN 4.1 g/dL (3.5-5.0); ALKALINE PHOSPHATASE 111 U/L (38-126); ANION GAP 8 (5-19); ASPARTATE AMINO TRANSFERASE 15 U/L (14-36); BILIRUBIN,DIRECT 0.2 mg/dL (0.0-0.4); BILIRUBIN,TOTAL 0.7 mg/dL (0.2-1.3); BLOOD UREA NITROGEN 19 mg/dL (7-20); CALCIUM 9.8 mg/dL (8.4-10.2); CARBON DIOXIDE 27 mmol/L (22-30); CHLORIDE 104 mmol/L (98-107); GLUCOSE 317 mg/dL (75-110); POTASSIUM 4.2 mmol/L (3.6-5.0)
[2019-12-15 17:24] LABS: FREE T3 3.67 pg/mL (2.77-5.27); FREE T4 (FREE THYROXINE) 1.21 ng/dL (0.78-2.19)
[2019-12-15 17:37] LABS: THYROID STIMULATING HORMONE 0.8 uIU/mL (0.47-4.68)
--- NOTE | 2019-12-15 20:30 | ER Document Report ---
ED General - General Chief Complaint: Neck Problem Stated Complaint: LUMP ON NECK Time Seen by Provider: 12/15/19 16:18 Primary Care Provider: [facility] [Primary Care Provider] - Follow up as needed Mode of Arrival: Ambulatory Notes: Patient is a 34-year-old female that comes emergency department for 2 complaints. First complaint is a tender, swollen area just underneath the right mandible on the front of the neck that has been there for several days. She states when it first swelled she also had swelling of the face on the right side although this has gone down somewhat. She states that the area is intermittently tender and swelled a couple of months ago as well. She denies sore throat, fever/chills, ear pain, sinus congestion, headache, shortness of breath, cough, chest pain. Second complaint is occasionally she will get sensation of something being stuck in her throat, she states that she is still able to eat and drink without difficulty, she states that she does have reflux and her symptoms do improve after she takes Pepcid but it keeps coming back. She denies abdominal pain, vomiting, recurrent symptoms in regards to this. Past medical history of type 2 diabetes on Metformin, PCOS, GERD, and she smokes. She denies heavy alcohol or recreational drugs. TRAVEL OUTSIDE OF THE [place] IN LAST 30 DAYS: No - Related Data Allergies/Adverse Reactions: No Known Allergies Allergy (Verified 10/13/17 11:07) Past Medical History - General Information source: Patient - Social History Smoking Status: Current Every Day Smoker Smoking Education Provided: Yes - <3 min Frequency of alcohol use: Occasional Lives with: Family Family History: Reviewed & Not Pertinent - Past Medical History Cardiac Medical History: Denies: Hx Hypertension, Hx Pulmonary Embolism, Hx Heart Murmur Pulmonary Medical History: Denies: Hx Asthma, Hx Sleep Apnea, Hx Tuberculosis Neurological Medical History: Denies: Hx Cerebrovascular Accident, Hx Seizures Endocrine Medical History: Reports: Hx Diabetes Mellitus Type 2. Denies: Hx Hyperthyroidism, Hx Hypothyroidism Renal/ Medical History: Reports: Hx Ovarian Cysts. Denies: Hx Kidney Stones, Hx Peritoneal Dialysis, Hx Pelvic Inflammatory Disease Malignancy Medical History: Denies: Hx Breast Cancer, Hx Cervical Cancer, Hx Ovarian Cancer GI Medical History: Reports: Hx Gastroesophageal Reflux Disease - PO MEDS. Denies: Hx Hiatal Hernia, Hx Ulcer Musculoskeletal Medical History: Denies Hx Fibromyalgia Psychiatric Medical History: Denies: Hx Bipolar Disorder, Hx Depression, Hx Post Traumatic Stress D isorder, Hx Schizophrenia Traumatic Medical History: Denies: Hx Fractures Infectious Medical History: Denies: Hx HIV Past Surgical History: Reports: Hx Gynecologic Surgery - 2018, Other - c/section as above - Immunizations Hx Diphtheria, Pertussis, Tetanus Vaccination: Yes Review of Systems - Review of Systems Constitutional: No symptoms reported EENT: See HPI Cardiovascular: No symptoms reported Respiratory: No symptoms reported Gastrointestinal: See HPI Genitourinary: No symptoms reported Female Genitourinary: No symptoms reported Musculoskeletal: No symptoms reported Skin: No symptoms reported Hematologic/Lymphatic: No symptoms reported Neurological/Psychological: No symptoms reported Physical Exam - Vital signs Vitals: Temp Pulse Resp BP Pulse Ox 98.5 F 95 18 154/98 H 99 12/15/19 15:54 12/15/19 15:54 12/15/19 15:54 12/15/19 15:54 12/15/19 15:54 - Notes Notes: GENERAL: Alert, interacts well. No acute distress. HEAD: Normocephalic, atraumatic. EYES: Pupils equal, round, and reactive to light. Extraocular movements intact. ENT: Oral mucosa moist, tongue midline. There is a broken molar in the right lower aspect with surrounding erythema of the gumline but no induration, fluctuance, or abscess. Oropharynx unremarkable. Unremarkable oropharyngeal exam otherwise. Airway patent. Nares patent, sinuses non-tender, ear canals unremarkable, TM's intact. NECK: Full range of motion. Supple. Trachea midline. There is some tenderness over the right anterior cervical and submandibular lymph node areas but no severe swelling, no erythema or induration, otherwise unremarkable. LUNGS: Clear to auscultation bilaterally, no wheezes, rales, or rhonchi. No respiratory distress. Non-tender chest wall. HEART: Regular rate and rhythm. No murmur ABDOMEN: Soft, non-tender. Non-distended. EXTREMITIES: Moves all 4 extremities spontaneously. No edema, normal radial and dorsalis pedis pulses bilaterally. No cyanosis. BACK: no cervical, thoracic, lumbar midline tenderness. No saddle anesthesia, normal distal neurovascular exam. Moves all extremities in full range of motion. NEUROLOGICAL: Alert and oriented x3. Normal speech. Cranial nerves II through XII grossly intact. Strength 5/5 in all extremities. PSYCH: Normal affect, normal mood. SKIN: Warm, dry, normal turgor. No rashes or lesions noted. Course - Re-evaluation Re-evalutation: Examination indicates tenderness and erythema along the right lower posterior gumline next to a broken molar with adjacent tenderness along the jaw but no overt facial swelling. Vital signs unremarkable. There is also mild nearby lymphadenopathy. Oropharyngeal exam otherwise unremarkable, no signs of abscess. I did review work-up from triage including CBC, chemistry, test, thyroid studies, these are all unremarkable. Patient is also complaining of reflux symptoms and occasional throat sensation but she is able to tolerate p.o. without any difficulty. Because of patient's evaluation I recommended oral antibiotics, dental follow-up, and better treatment of suspected GERD symptoms. I discussed work-up, follow-up, return precautions in detail. Patient states understanding and agreement. Stable and well-appearing at time of discharge. - Vital Signs Vital signs: Temp Pulse Resp BP Pulse Ox 98.5 F 76 18 150/78 H 97 12/15/19 20:51 12/15/19 20:51 12/15/19 20:51 12/15/19 20:51 12/15/19 20:51 - Laboratory Result Diagrams: 12/15/19 16:35 12/15/19 16:35 Laboratory results interpreted by me: 12/15/19 12/15/19 16:35 16:35 Hgb 15.6 H Glucose 317 H Discharge - Discharge Clinical Impression: Lymphadenopathy, Globus pharyngeus Condition: Stable Disposition: HOME, SELF-CARE Additional Instructions: Your evaluation shows swollen lymph nodes along your cervical chain, based on your exam this appears to be from a dental infection, you have a fractured molar on the right lower side with surrounding inflammation. I recommend that you take the antibiotic as prescribed to completion, take the Diflucan afterwards if needed to avoid yeast infection. Symptoms should simply resolve however it is important that you follow-up with a dentist for repair or this will continue to happen. See referrals listed below. In regards to the throat sensation I recommend the Carafate along with your famotidine, stop smoking, reduce alcohol, spicy food, NSAIDs, caffeine. Over time this should go away. Follow-up with primary care. Return if you worsen including severe worsening swelling of the face or neck, difficulty swallowing or breathing, vomiting, fever, or any other concerning or worsening symptoms. [facility] [address] [facility] [place], [address] [address] Prescriptions: Sucralfate [Carafate 1 gm Tablet] 1 gm PO QID #20 tablet Fluconazole [Diflucan] 150 mg PO ONCE PRN #3 tablet PRN Reason: Penicillin V Potassium [Penicillin Vk 500 mg Tablet] 500 mg PO BID #20 tablet Forms: Smoking Cessation Education, Return to Work Referrals: [facility] [Primary Care Provider] - Follow up as needed
[2019-12-15] MEDS ORDERED: SUCRALFATE 1 GM TABLET PO ONE (20:38)
[2019-12-15] MEDS ORDERED: PENICILLIN V POTASSIUM 500 MG TABLET PO ONE (20:38)
[2019-12-15 20:51] VITALS: BP 150/78
== END 2019-12-15 20:51 | disposition home or self-care (01) ==
LOC: ER 15:49
DX: R59.1 Generalized enlarged lymph nodes (principal); R09.89 Other specified symptoms and signs involving the circulatory and respiratory systems; E11.9 Type 2 diabetes mellitus without complications; Z79.84 Long term (current) use of oral hypoglycemic drugs; F17.200 Nicotine dependence, unspecified, uncomplicated
CPT/HCPCS: 36415; 80053; 84439; 84443; 84481; 84702; 85025; 99283